=== PATIENT | male | born 1985 | race Caucasian/White ===

== ENCOUNTER 2020-04-16 14:29 | Emergency (ER) | payer BC, SELFPAY ==
--- NOTE | ~2020-04-16 | XR_ITS ---
EXAMINATION: XR hand RT min 3V INDICATION: Right hand pain, initial encounter TECHNIQUE: Three views of the right hand are obtained. COMPARISON: 04/21/2015 FINDINGS: There is an acute, traumatic, comminuted fracture at the distal aspect of the fifth metacar pal. There are 35 degrees of palmar angulation at the fracture site. The fracture does not definitely extend to the metacarpophalangeal joint. Soft tissue swelling surrounds the fracture. The remaining osseous structures are unremarkable. IMPRESSION: 1. Comminuted fracture of the distal aspect of the fifth metacarpal. Reviewed, dictated and finalized at location A.
[2020-04-16 14:37] VITALS: BP 154/88; PULSE 86; RESP 18; TEMP 36.7; O2SAT 99
--- NOTE | 2020-04-16 15:44 | WC.ED.TRAUMA ---
HPI - Trauma General Chief Complaint: Extremity Injury, Upper <DARYL Rodriguez Last Filed: 04/16/20 15:47> Stated Complaint: r hand injury <DARYL Rodriguez Last Filed: 04/16/20 15:47> Time Seen by Provider: 04/16/20 14:33 <DARYL Rodriguez Last Filed: 04/16/20 15:47> Source: patient <DARYL Rodriguez Last Filed: 04/16/20 15:47> Mode of arrival: ambulatory <DARYL Rodriguez Last Filed: 04/16/20 15:47> Limitations: no limitations <DARYL Rodriguez Last Filed: 04/16/20 15:47> History of Present Illness HPI narrative: Patient is a 35-year-old male who presents to emergency department for evaluation of right hand injury patient had the hand caught between 2 logs while working today with resultant bruising aching pain involving the ulnar aspect of the hand patient denies other injuries or complaints denies any radicular symptoms or paresthesias presents per private vehicle has not had anything for pain and has no other injuries <Roldan Rivers PA-C Last Filed: 04/16/20 15:47> Related Data Home Medications: Home Medications Medication Instructions Recorded Confirmed albuterol sulfate 90 mcg/actuation 2 puff INHALATION Q4-6H PRN gm 02/14/20 02/17/20 aerosol inhaler dexlansoprazole 60 mg 60 mg PO DAILY 02/14/20 02/17/20 capsule,biphase delayed release multivitamin 1 tablet PO DAILY 02/14/20 02/17/20 <Roldan Rivers PA-C Last Filed: 04/16/20 15:47> Allergies/Adverse Reactions: Allergies Allergy/AdvReac Type Severity Reaction Status Date / Time No Known Allergies Allergy Verified 02/15/20 14:31 <DARYL Rodriguez Last Filed: 04/16/20 15:47> Review of Systems Review of Systems: All systems reviewed & are unremarkable except as noted in HPI and below <DARYL Rodriguez Last Filed: 04/16/20 15:47> PMF Family History Family History: Family History (Updated 07/29/16 @ 23:21 by DOCTOR UNKNOWN) Father Hypertension Mother Hypertension Sibling Patient's sister is in good health Family history of alcoholism Patient's sister is , Onset Age: 21 <Roldan Rivers PA-C - Last Filed: 04/16/20 15:47> Social History Social History: Social History Smoking status: Current every day smoker Second hand tobacco smoke exposure: No Alcohol intake: never <Roldan Rivers PA-C - Last Filed: 04/16/20 15:47> Exam Narrative: Exam Narrative: GENERAL: Well-appearing, well-nourished, and in no acute distress. HEAD: Normocephalic, atraumatic. EYES: PERRLA and EOMI. ENT: Nares clear, no rhinorrhea or epistaxis. Mucous membranes moist. EXTREMITIES: Bruising swelling and tenderness over the ulnar aspect of the right hand worse over the fifth MCP joint SKIN: Warm, dry, no rash. NEURO: No focal deficits. Alert and oriented x3. Neurovascularly intact. Capillary refill less than 2 seconds PSYCH: Normal mood and affect. <Roldan Rivers PA-C - Last Filed: 04/16/20 15:47> Course Course Emergency Course: Patient in the room in no distress aware of case findings treatment plan and diagnosis agreeing to follow-up as directed with hand surgery patient aware of discussion instructions of hand surgery provided with reasons to return <Roldan Rivers PA-C - Last Filed: 04/16/20 15:47> Reevaluation(s) Reevaluation #1: Discussed case with hand surgery who will follow patient in clinic <Roldan Rivers PA-C - Last Filed: 04/16/20 15:47> Date: 04/16/20 <DARYL Rodriguez Last Filed: 04/16/20 15:47> Time: 15:46 <Roldan Rivers PA-C - Last Filed: 04/16/20 15:47> Vital Signs Vital signs: Vital Signs Temperature 98.1 F 04/16/20 14:37 Pulse Rate 86 04/16/20 14:37 Respiratory Rate 18 04/16/20 14:37 Blood Pressure 154/88 H 04/16/20 14:37 Pulse Oximetry 99
[2020-04-16 15:53] VITALS: BP 144/78; PULSE 72; RESP 18; O2SAT 100
== END 2020-04-16 15:54 | disposition home or self-care (01) ==
PROVIDERS: Emergency Provider Emergency Medicine; PCP Physician Assistant
DX: S62.336A Displaced fracture of neck of fifth metacarpal bone, right hand, initial encounter for closed fracture (principal); F17.200 Nicotine dependence, unspecified, uncomplicated; W23.0XXA Caught, crushed, jammed, or pinched between moving objects, initial encounter
CPT/HCPCS: 29125; 73130; 99284; A4565; A9270

== ENCOUNTER 2021-01-10 11:51 | Outpatient (CLI) | payer BC, SELFPAY | END 2021-01-10 11:52 | disposition home or self-care (01) | LOC: ANHCOVIDVC 11:51 | PROVIDERS: PCP Physician Assistant | DX: Z23 Encounter for immunization (principal) | CPT/HCPCS: 0001A; 91300 ==

== ENCOUNTER 2021-01-31 11:43 | Outpatient (CLI) | payer BC, SELFPAY | END 2021-01-31 11:44 | disposition home or self-care (01) | LOC: ANHCOVIDVC 11:43 | PROVIDERS: PCP Physician Assistant | DX: Z23 Encounter for immunization (principal) | CPT/HCPCS: 0002A; 91300 ==

== ENCOUNTER 2021-07-29 16:42 | Outpatient (CLI) | payer BC, SELFPAY ==
--- NOTE | ~2021-07-29 | XR_ITS ---
XR knee RT 3V DATE: 07/29/2021 17:07 INDICATION: Anterior right knee pain for 3 weeks. No acute injury. TECHNIQUE: 4 views COMPARISON: None FINDINGS: Small suprapatellar knee joint effusion is suggested. No fracture or dislocation, periosteal reaction or bone destruction, radiopaque intra-articular loose body or chondrocalcinosis is evident. Knee joint spaces appear relatively preserved. There is mild patellar enthesopathy at the quadriceps and patellar tendon insertion sites. IMPRESSION: Small suprapatellar knee joint effusion is suggested Reviewed, dictated and finalized at location B.
== END 2021-07-29 16:43 | disposition home or self-care (01) ==
LOC: ANHIMG 16:45
PROVIDERS: PCP Physician Assistant; Visit Provider Physician Assistant
DX: M25.461 Effusion, right knee (principal)
CPT/HCPCS: 73562

== ENCOUNTER 2021-12-23 09:54 | Outpatient (CLI) | payer BC, SELFPAY ==
--- NOTE | ~2021-12-23 | XR_ITS ---
. EXAMINATION: XR ankle RT min 3V, XR foot RT min 3V DATE: 12/23/2021 10:17 INDICATION: Lateral right foot and ankle pain post fall TECHNIQUE: 1. Anteroposterior, mortise, additional oblique and lateral view of the right ankle were obtained. 2. Dorsoplantar, two oblique and lateral views of the right foot were obtained. COMPARISON: None. FINDINGS: Alignment of the right foot and ankle is normal. No fracture or osteochondral lesion. Mild osteoarthr itis at the first metatarsophalangeal joint and a few tarsometatarsal and interphalangeal joints. No ankle joint effusion. Diffuse soft tissue swelling about the distal lower leg, ankle and extending ov er the dorsum of the foot. IMPRESSION: 1. No acute osseous abnormality. Reviewed, dictated and finalized at location A. GE INSPECTOR IMPRESSION: 1. No acute osseous abnormality.
== END 2021-12-23 09:55 | disposition home or self-care (01) ==
LOC: ANHIMG 09:59
PROVIDERS: PCP Physician Assistant; Visit Provider Physician Assistant
DX: M79.671 Pain in right foot (principal)
CPT/HCPCS: 73610; 73630

== ENCOUNTER 2022-04-07 08:00 | Outpatient (CLI) | payer BC, SELFPAY ==
--- NOTE | 2022-04-22 17:44 | WPDHOMESLEEP ---
Sleep Study - Home Unattended Date of Study: 04/07/22 Ordering Provider: Armaan Billy PA-C Interpreting Provider: Shannon Villalobos MD Home Sleep Study Type: Apnea Link Air Height: 1.85 m Weight: 161.025 kg Body Mass Index: 46.8 Neck Circumference (inches): 20 [place]: 5 Reason for Sleep Study Frequent snoring, waking to go to the bathroom at night Sleep History Antonino Lawson is a 37-year-old man who works for the [employer]. He has hypertension, rare gastroesophageal reflux symptoms and seasonal allergies in the fall. He does not awaken from sleep feeling short of breath. He occasionally awakens at night with heartburn, belching or coughing. He frequently snores, occasionally loudly enough that others complain about it. He does not have trouble sleeping with a cold. He does not wake up gasping for breath at night. He does not have breathing problems at night observed by others. He does not sweat excessively at night or notice his heart pounding or beating irregularly at night. He does not fall asleep during the day. He denies falling asleep involuntarily or while driving. He does not have loss of muscle tone with strong emotion. 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 He does not feel paralyzed on waking or falling asleep. He does not have vivid dreamlike scenes upon awakening or falling asleep. He does not feel afraid to go to sleep. He does not have nightmares. He does not have dream recall. He does not have racing thoughts. He denies feeling sad, depressed or anxious. He does not have muscular tension. He rarely notices parts of his body jerking as he is falling asleep. He does not kick at night. He does not have crawling or aching feelings in his legs. He does not have any kind of leg pain at night. He does not have morning jaw pain. He denies grinding his teeth during sleep. He is not bothered by pain during the day or awakened by pain during the night. He does not wake up feeling stiff in the morning. He does not wake up with sore achy muscles or pain in the neck and spine. He reports a 10 lb weight gain in the last year. Normal bedtime is between 10:00 p.m. and 11:00 p.m. falling asleep quickly waking sometimes once at night sometimes not at all to go to the bathroom. It takes him 5 minutes to return to sleep. He wakes the morning between 3:00 a.m. and 4:00 a.m.. He keeps the same schedule on the weekends. He estimates getting 5 hours of sleep at night. He denies taking naps in the afternoon or evening. He does not frequently have daytime sleepiness. He frequently snores. He feels better in the morning compared to other times of day. Habits: Tobacco 1.5 packs per day. Caffeine 7 servings a day. One alcoholic beverage per day. He does use recreational substances, does not list what type. [facility] Past Medical History Medical History Arthritis of right knee Gastroesophageal reflux disease Hypertension Family History Family History Father Hypertension Mother Hypertension Sibling Patient's sister is in good health Family history of alcoholism Patient's sister is , Onset Age: 21 Social History Social History Smoking status: Current every day smoker Second hand tobacco smoke exposure: No Alcohol intake: never Gender identity (if verbalized by the patient): Male Medications Home Medications Medication Instructions Recorded Confirmed Type multivitamin (Multiple Vitamins 1 tablet PO DAILY 02/14/20 02/19/22 History tablet) celecoxib 200 mg capsule (Celebrex) 200 mg PO DAILY #30 caps 08/07/21 02/19/22 Rx dexlansoprazole 60 mg 60 mg PO DAILY
[2022-04-22 19:40] VITALS: BMI 46.8
== END 2022-04-21 14:49 | disposition home or self-care (01) ==
LOC: ANHCSM 08:01
PROVIDERS: PCP Physician Assistant; Visit Provider Physician Assistant
DX: G47.30 Sleep apnea, unspecified (principal); G47.33 Obstructive sleep apnea (adult) (pediatric)
CPT/HCPCS: 95806

== ENCOUNTER 2022-05-08 07:42 | Outpatient (CLI) | payer BC, SELFPAY ==
--- NOTE | 2022-06-02 17:54 | WPDSLEEPSTUD ---
Sleep Study Date of Study: 05/08/22 Ordering Provider: Armaan Billy PA-C Interpreting Physician: Chayo Maddox, DO Sleep Study Type: BiPAP Titration Height: 1.85 m Weight: 156.036 kg Body Mass Index: 45.3 Neck Circumference (inches): 17.5 [place]: 7 Reason for Sleep Study The patient had a home sleep test using ApneaLink on April 07, 2022 shows extremely severe obstructive sleep apnea with an AHI of 55.3,worse in the supine position, profound hypoxemia to 65% and frequent loud snoring. Sleep History Antonino Lawson is a 37-year-old man who works for the [employer].? He has hypertension, rare gastroesophageal reflux symptoms and seasonal allergies in the fall.? He does not awaken from sleep feeling short of breath.? He occasionally awakens at night with heartburn, belching or coughing.? He frequently snores, occasionally loudly enough that others complain about it.? He does not have trouble sleeping with a cold.? He does not wake up gasping for breath at night.? He does not have breathing problems at night observed by others.? He does not sweat excessively at night or notice his heart pounding or beating irregularly at night. He does not fall asleep during the day.? He denies falling asleep involuntarily or while driving.? He does not have loss of muscle tone with strong emotion.? 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 He does not feel paralyzed on waking or falling asleep.? He does not have vivid dreamlike scenes upon awakening or falling asleep.? He does not feel afraid to go to sleep.? He does not have nightmares.? He does not have dream recall.? He does not have racing thoughts.? He denies feeling sad, depressed or anxious.? He does not have muscular tension.? He rarely notices parts of his body jerking as he is falling asleep.? He does not kick at night.? He does not have crawling or aching feelings in his legs.? He does not have any kind of leg pain at night.? He does not have morning jaw pain.? He denies grinding his teeth during sleep.? He is not bothered by pain during the day or awakened by pain during the night.? He does not wake up feeling stiff in the morning.? He does not wake up with sore achy muscles or pain in the neck and spine.? He reports a 10 lb weight gain in the last year. Normal bedtime is between 10:00 p.m. and 11:00 p.m. falling asleep quickly waking sometimes once at night sometimes not at all to go to the bathroom.? It takes him 5 minutes to return to sleep.? He wakes the morning between 3:00 a.m. and 4:00 a.m..? He keeps the same schedule on the weekends.? He estimates getting 5 hours of sleep at night.? He denies taking naps in the afternoon or evening.? He does not frequently have daytime sleepiness.? He frequently snores.? He feels better in the morning compared to other times of day. Habits:? Tobacco 1.5 packs per day.? Caffeine 7 servings a day.? One alcoholic beverage per day.? He does use recreational substances, does not list what type. [facility] Past Medical History Medical History Arthritis of right knee Gastroesophageal reflux disease Hypertension Family History Family History Father Hypertension Mother Hypertension Sibling Patient's sister is in good health Family history of alcoholism Patient's sister is , Onset Age: 21 Social History Social History Smoking status: Current every day smoker Second hand tobacco smoke exposure: No Alcohol intake: never Gender identity (if verbalized by the patient): Male Medications Home Medications Medication Instructions Recorded Confirmed Type multivitamin (Multiple Vitamins 1 tablet PO DAILY 02/14/2002/01
[2022-06-02 21:59] VITALS: BMI 45.3
== END 2022-05-09 03:44 | disposition home or self-care (01) ==
LOC: ANHCSM 07:44
PROVIDERS: PCP Physician Assistant; Visit Provider Physician Assistant
DX: G47.33 Obstructive sleep apnea (adult) (pediatric) (principal)
CPT/HCPCS: 95811

== ENCOUNTER 2023-06-24 10:13 | Outpatient (CLI) | payer OTHER, SELFPAY ==
--- NOTE | ~2023-06-24 | XR_ITS ---
EXAMINATION: XR shoulder RT min 2V INDICATION: Right shoulder pain TECHNIQUE: Four views of the right shoulder are submitted. COMPARISON: None FINDINGS: Normal alignment. No fracture. Glenohumeral and acromioclavicular joint spaces are normal. Soft tissues are unremarkable. IMPRESSION: 1. No acute osseous abnormality. Reviewed, dictated and finalized at location A.
== END 2023-06-24 10:14 | disposition home or self-care (01) ==
LOC: ANHIMG 10:15
PROVIDERS: PCP Physician Assistant; Visit Provider Physician Assistant
DX: M25.511 Pain in right shoulder (principal)
CPT/HCPCS: 73030

== ENCOUNTER 2024-10-02 17:15 | Inpatient (IN) | payer OTHER, SELFPAY ==
--- NOTE | ~2024-10-02 | CT_ITS ---
EXAMINATION: CT abdomen pelvis w con DATE: 10/02/2024 21:49 INDICATION: abdominal pain TECHNIQUE: Computed tomography (CT) of the abdomen and pelvis was performed with 100 mL Omnipaque-350 intravenous contrast. Automated exposure control and iterative reconstruction technique were employe d. The dose-length product was 1851.75 mGy-cm. COMPARISON: None. FINDINGS: Lower thorax: Unremarkable Liver: Enlarged. Diffuse fatty infiltration Biliary/Gallbladder: Cholelithiasis. No inflammatory changes. No bile duct dilation. Pancreas: Mild fatty infiltration. Spleen: Normal. Adrenals:No mass. Kidneys: No suspicious mass, obstructing stone, or hydronephrosis. GI tract: Small hiatal hernia. Masslike focal soft tissue thickening in the colon at the hepatic flex ure. No small or large bowel dilation. Normal appendix. Mesentery/Peritoneum: No ascites, mass, or free air. Retroperitoneum: No mass. Pelvis: Pelvic organs are within normal limits. Soft Tissues: Moderate uncomplicated appearing fat-containing umbilical hernia. Small uncomplicated a ppearing fat-containing left inguinal hernia. Bones: No acute osseous finding. IMPRESSION: Hepatomegaly and steatosis. Findings suspicious for a colonic mass at the hepatic flexure. Recommend referral for endoscopy. Reviewed, dictated and finalized at location K. IZATION REVIEW SPECIALIST IMPRESSION: Hepatomegaly and steatosis. Findings suspicious for a colonic mass at the hepatic flexure. Recommend referr al for endoscopy.
--- NOTE | ~2024-10-02 | CT_ITS ---
EXAMINATION: CT diagnostic chest w con DATE: 10/05/2024 09:08 INDICATION: Colon mass TECHNIQUE: Computed tomography (CT) of the chest was performed with 75 mL Omnipaque-350 intravenous c ontrast. Additional 3D reconstructions utilizing coronal maximum intensity projection (MIP) were perf ormed. Automated exposure control and iterative reconstruction technique were employed. The dose-walter th product was 937.24 mGy-cm. COMPARISON: None FINDINGS: Mild atelectasis at the posterior sulcus of the right lower lobe. No suspicious pulmonary nodules, pn eumonia, pulmonary edema or pleural effusion. Heart size is normal. No pericardial effusion. Thoracic aorta is normal in caliber with no dissection. No pathologically enlarged thoracic lymphadenopathy. Prominent diffuse hepatic steatosis. Partial rim calcification of a gallstone at the neck of the part ially visualized but normal-appearing gallbladder. Mild thoracic spondylosis. IMPRESSION: 1. Mild right basilar atelectasis. No suspicious pulmonary nodule or acute cardiopulmonary disease. 2. Diffuse hepatic steatosis. 3. Cholelithiasis. Reviewed, dictated and finalized at location A. IO POTTER IMPRESSION: 1. Mild right basilar atelectasis. No suspicious pulmonary nodule or acute card iopulmonary disease. 2. Diffuse hepatic steatosis. 3. Cholelithiasis.
[2024-10-02 19:07] VITALS: BP 131/73; PULSE 103; RESP 14; TEMP 36.3; O2SAT 100
[2024-10-02] MEDS: ONDANSETRON INJ 4 MG/2 ML VIAL IV PUSH (20:58)
[2024-10-02] MEDS: SODIUM CHLORIDE 0.9% IV 1,000 ML 999 ML IV CONT (20:58)
[2024-10-02 21:02] VITALS: BP 129/64; RESP 24; O2SAT 98
[2024-10-02 21:06] LABS: Basophils Absolute Auto 0.1 K/mm3 (0.0-0.1); Basophils Percent Auto 0.4 % (0.2-1.2); Eosinophils Percent Auto 0.2 % (0-4.4); Hematocrit 26.4 % (42.0-52.0); Hemoglobin 8.7 g/dL (14.0-18.0); Immature Granulocyte Absolute 0.14 K/mm3 (0.00-0.031); Immature Granulocyte Percent A 0.8 % (0-0.5); Lymphocytes Absolute Auto 3.51 K/mm3 (0.9-3.2); Lymphocytes Percent Auto 21.1 % (18.3-44.2); Mean Corpuscular Hemoglobin 29.9 pg (26-34); Mean Corpuscular Volume 90.7 fl (80-100); Mean Platelet Volume 11.5 fl (7.4-10.4); Neutrophils Absolute Auto 11.9 K/mm3 (1.3-6.7); Neutrophils Percent Auto 71.5 % (45.5-73.1); Platelet Count Result 262 k/mm3 (150-375); Red Blood Count 2.91 M/mm3 (4.6-6.20); White Blood Count 16.6 K/mm3 (4.5-10.0)
[2024-10-02 21:21] LABS: Alanine Aminotransferase 30 U/L (6-50); Albumin Level 3.9 g/dL (3.5-5.1); Alkaline Phosphatase 69 U/L (38-126); Anion Gap 6 mmol/L (4-12); Aspartate Amino Transferase 29 U/L (17-59); Bilirubin,Total 0.8 mg/dL (0.2-1.3); Blood Urea Nitrogen 17 mg/dL (9-20); Calcium 8.3 mg/dL (8.4-10.2); Carbon Dioxide 29 mmol/L (22-30); Chloride 94 mmol/L (98-107); Estimated CRCL calculation 124 ml/min; Estimated Glomerular Filt Rate > 60; Glucose 323 mg/dL (65-110); Lactic Acid Reflex 2.1 mmol/L (0.7-2.0); Lipase 43 U/L (23-300); Magnesium 1.5 mg/dL (1.6-2.3); Potassium 3.5 mmol/L (3.4-5.0); Sodium 129 mmol/L (137-145)
[2024-10-02 21:33] LABS: INR 1.1; Prothrombin Time 14.2 Seconds (11.1-14.7)
[2024-10-02 21:34] LABS: Partial Thromboplastin Time 24.9 Seconds (22.3-36.8)
[2024-10-02] MEDS: MAGNESIUM SULF 2 GM/WATER 50ML 2 GM/50 ML BAG IVPB (22:07)
[2024-10-02 22:13] LABS: Procalcitonin 0.6 ng/mL
[2024-10-02 22:21] VITALS: BP 138/88; PULSE 98; RESP 17; O2SAT 99
--- NOTE | 2024-10-02 22:52 | ED.GENADULT ---
HPI - General Adult General Chief complaint: GI Bleed Stated complaint: rectal bleeding Time Seen by Provider: 10/02/24 19:59 History of Present Illness HPI narrative: Patient is a 39-year-old gentleman who presents emergency department chief complaint of rectal bleeding. Patient states that he started having diarrhea and started having blood in the diarrhea the patient states his stool has changed to a maroon-colored now patient reports he has a crampy like sensation through his abdomen. The patient reports he has felt lightheaded Related Data Home Medications Medication Instructions Recorded Confirmed multivitamin (Multiple Vitamins 1 tablet PO DAILY 02/14/20 04/23/23 tablet) Allergies Allergy/AdvReac Type Severity Reaction Status Date / Time No Known Allergies Allergy Verified 04/23/23 10:36 Review of Systems Review of Systems: A 10 system review of systems was completed on the patient and is negative except for what is stated in the HPI. Nursing and ancillary documentation was reviewed. [facility] Past Medical History Medical History Arthritis of right knee Gastroesophageal reflux disease Hypertension Family History Family History Father Hypertension Mother Hypertension Sibling Patient's sister is in good health Family history of alcoholism Patient's sister is , Onset Age: 21 Social History Social History Smoking status: Former smoker Second hand tobacco smoke exposure: No Alcohol intake: never Lack of Transportation: No Lack of Food: Never True Current Housing: I Have Housing Concerned About Future Housing: No Difficulty Paying Gas/Electric Bills: No Difficulty Paying for Meds: No Currently Unemployed: No Education: Associate Degree Difficulty w/ Childcare or Family Care: No Gender identity (if verbalized by the patient): Male Exam Narrative: GENERAL: Well-appearing, well-nourished, and in no acute distress. HEAD: Normocephalic, atraumatic. EYES: PERRLA and EOMI. ENT: Nares clear, no rhinorrhea or epistaxis. Mucous membranes moist. NECK: Supple. CHEST: Clear to auscultation. No respiratory distress. HEART: Regular rate and rhythm. No murmur heard. Normal peripheral pulses. ABDOMEN: Soft, nontender, nondistended, normal active bowel sounds. : Melanotic guaiac-positive stool EXTREMITIES: Normal range of motion. No edema. SKIN: Warm, dry, no rash. NEURO: No focal deficits. Alert and oriented x3. PSYCH: Normal mood and affect. Course Vital Signs Vital signs: Vital Signs Temperature 36.3 C L 10/02/24 19:07 Pulse Rate 103 H 10/02/24 19:07 Respiratory Rate 14 10/02/24 19:07 Blood Pressure 131/73 10/02/24 19:07 Pulse Oximetry 100 10/02/24 19:07 Temperature 36.3 C L 10/02/24 19:07 Pulse Rate 98 10/02/24 22:21 Respiratory Rate 17 10/02/24 22:21 Blood Pressure 138/88 10/02/24 22:21 Pulse Oximetry 99 10/02/24 22:21 Medical Decision Making MDM Narrative Medical decision making narrative: Differential diagnosis includes intra-abdominal infection, diverticulitis, colitis, proctocolitis, intra-abdominal mass, GI bleed, Laboratory studies were obtained on the patient showed hemoglobin of 8.7 CT scan of the abdomen pelvis showed Hepatomegaly and steatosis. Findings suspicious for a colonic mass at the hepatic flexure. Recommend referral for endoscopy. The case was discussed with GI on-call who will consult on the patient tomorrow the patient started on bowel prep serial H&Hs we kept NPO Case was discussed with the hospitalist who accepted the patient Vital Signs Vital Signs: Vital Signs Temperature 36.3 C L 10/02/24 19:07 Pulse Rate 103 H 10/02/24 19:07 Respiratory Rate 14 10/02/24 19:07 Blood Pressure 131/73 10/02/24 19:07 Pulse Oximetry 100 10/02/24 19:07 Temperature 36.3 C L 10/02/24 19:07 Pulse Rate 98 10/02/24 22:21 Respiratory Rate 17 10/02/24 22:21 Blood Pressure 138/88 10/02/24 22:21 Pulse Oximetry 99 10/02/24 22:21 Lab Data 10/02/24 20:57 10/02/24 20:57 Labs: Lab Results 10/02/24 Range/Units 20:57 WBC 16.6 H (4.5-10.0) K/mm3 RBC 2.91 L (4.6-6.20) M/mm3 Hgb 8.7 L (14.0-18.0) g/dL Hct 26.4 L (42.0-52.0) % MCV 90.7 (80-100) fl MCH 29.9 (26-34) pg MCHC 33.0 (32-36) g/dl RDW 14.0 (11.5-14.5) % Plt Count 262 (150-375) k/mm3 MPV 11.5 H (7.4-10.4) fl Immature Gran % (Auto) 0.8 H (0-0.5) % Neut % (Auto) 71.5 (45.5-73.1) % Lymph % (Auto) 21.1 (18.3-44.2) % Reeves % (Auto) 6.0 (2.6-8.5) % Eos % (Auto) 0.2 (0-4.4) % Baso % (Auto) 0.4 (0.2-1.2) % Lymph # (Auto) 3.51 H (0.9-3.2) K/mm3 Reeves # (Auto) 1.0 H (0.1-0.6) K/mm3 Eos # (Auto) 0.0 (0-0.3) K/mm3 Baso # (Auto) 0.1 (0.0-0.1) K/mm3 Abs Immat Gran (auto) 0.14 H (0.00-0.031) K/mm3 Absolute Neuts (auto) 11.9 H (1.3-6.7) K/mm3 Absolute Nucleated RBC 0.000 (0.0-0.012) K/mm3 Nucleated RBC % 0.0 (0.0-0.2) % PT 14.2 (11.1-14.7) Seconds INR 1.1 APTT 24.9 (22.3-36.8) Seconds Sodium 129 L (137-145) mmol/L Potassium 3.5 (3.4-5.0) mmol/L Chloride 94 L (98-107) mmol/L Carbon Dioxide 29 (22-30) mmol/L Anion Gap 6 (4-12) mmol/L BUN 17 (9-20) mg/dL Creatinine 1.10 (0.7-1.3) mg/dL Estim Creat Clear Calc 124 ml/min Estimated GFR > 60 (59 - ) Glucose 323 H (65-110) mg/dL Lactic Acid 2.1 H (0.7-2.0) mmol/L Calcium 8.3 L (8.4-10.2) mg/dL Magnesium 1.5 L (1.6-2.3) mg/dL Total Bilirubin 0.8 (0.2-1.3) mg/dL AST 29 (17-59) U/L ALT 30 (6-50) U/L Alkaline Phosphatase 69 (38-126) U/L Total Protein 6.0 L (6.3-8.2) g/dL Albumin 3.9 (3.5-5.1) g/dL Lipase 43 (23-300) U/L Procalcitonin 0.6 ng/mL Discharge Plan Discharge Clinical Impression: GI bleed Patient Disposition: Still a Patient Condition: Stable Prescriptions: No Action multivitamin [Multiple Vitamins] Tablet 1 tablet PO DAILY celecoxib [Celebrex] 200 mg capsule 200 mg PO DAILY Qty: 30 1RF albuterol sulfate [ProAir HFA] 90 mcg/actuation HFA aerosol inhaler 2 puff INHALATION Q4-6H PRN (Reason: shortness of breath or wheezing) Qty: 8.5 3RF cyclobenzaprine 10 mg tablet 10 mg PO QHS PRN (Reason: muscle spasm) Qty: 20 0RF lisinopril-hydrochlorothiazide 20-12.5 mg tablet See Rx Instructions .ROUTE .COMPLEX Qty: 90 3RF Dose Instruction: TAKE 1 TABLET BY MOUTH EVERY DAY Rx Instructions: TAKE 1 TABLET BY MOUTH EVERY DAY Follow-up/Referrals: Isma Quintero DO [Primary Care Provider] - Time of Disposition: 22:56
[2024-10-03] VITALS (16 sets, daily range): BP systolic 130–169; BP diastolic 60–88; PULSE 90–105; RESP 16–20; TEMP 36.4–37.8; O2SAT 95–99; BMI 45.2
[2024-10-03 00:04] LABS: Reflex Lactic Acid Yes or No Add Lactic
--- NOTE | 2024-10-03 00:52 | PM.IMHP ---
H&P: HPI History of Present Illness Date/Time: 10/03/24 00:52 Chief Complaint: 1. Blood in stools 2. Dizziness 3. Fatigue Narrative: Antonino Lawson is a 39 yo M with a mhx significant for HTN, Obesity, COPD. He over the last day has been experiencing symptoms of loose frequent stools; with no known modifying factors they came to be associated with bloody bowel movements, fatigue, dizziness and malaise. He denies abdominal pains, chest pains, fevers, chills, nausea, vomiting or previous similar episodes. Though he has stopped smoking after a 20py+ history, he currently chews nicotine gum, does not drink alcohol or consume recreational/illicit drugs. His paternal grandparents suffered from Prostrate and breast cancer. Work-up findings: CTAP: Hepatomegaly and steatosis. Findings suspicious for a colonic mass at the hepatic flexure. Hb 8.7 >> 8.1 PLT 262 WBC Na 129 K 3.5 cl 94 HCO3 29 BUN 17 Cr 1.1 GFR >60 Antonino Lawson will be admitted, evaluated and managed for GIB with a colonic mass Review of Systems Constitutional: Constitutional: Denies body ache(s), Denies difficulty sleeping, Reports fatigue, Denies lethargy, Denies night sweats and Denies weakness Eyes: Eyes: Reports no additional eye complaints and Reports blurry vision ENT: Reports Normal hearing present, Reports dysphagia, Reports epistaxis and Reports nasal congestion Cardiovascular: Cardiovascular: Denies pedal edema, Denies leg edema, Denies lightheadedness and Denies palpitations Respiratory: Respiratory: Denies hemoptysis, Denies dyspnea and Denies dyspnea on exertion Gastrointestinal: Gastrointestinal: Reports hematochezia, Denies constipation, Denies heartburn, Denies diarrhea and Denies nausea Genitourinary: Genitourinary: Denies flank pain, Denies urinary frequency, Denies urinary hesitancy, Denies urinary incontinence and Denies urinary urgency Musculoskeletal: Musculoskeletal: Denies back pain, Denies myalgias, Denies arthralgias, Denies joint swelling and Denies neck pain Integumentary/Breasts: Skin/Breast: Reports dry skin Neurologic: Denies system reviewed and no additional complaints, except as documented, Denies Abnormal speech present, Denies abnormal gait, Denies confusion, Denies vertigo and Denies headache(s) Psychiatric: Psychiatric: Reports anxiety, Denies behavioral changes and Denies confusion PMFSH Past Medical History Medical History Arthritis of right knee Gastroesophageal reflux disease Hypertension Family History Family History Father Hypertension Mother Hypertension Sibling Patient's sister is in good health Family history of alcoholism Patient's sister is , Onset Age: 21 Social History Social History Smoking status: Former smoker Second hand tobacco smoke exposure: No Alcohol intake: never Substance use type: does not use Do You Feel Safe in your Home?: Yes Lack of Transportation: No Lack of Food: Never True Current Housing: I Have Housing Concerned About Future Housing: No Difficulty Paying Gas/Electric Bills: No Difficulty Paying for Meds: No Currently Unemployed: No Education: Associate Degree Difficulty w/ Childcare or Family Care: No Gender identity (if verbalized by the patient): Male Spiritual care concerns: No Meds Home Medications and Allergies Home Medications Medication Instructions Recorded Confirmed Type multivitamin (Multiple Vitamins 1 tablet PO DAILY 02/14/20 10/03/24 History tablet) albuterol sulfate 90 mcg/actuation 2 puff inhalation Q4-6H PRN 10/18/21 10/03/24 Rx aerosol inhaler (ProAir HFA) shortness of breath or wheezing #8.5 grams lisinopril 20 1 tablet PO DAILY 10/03/24 10/03/24 History mg-hydrochlorothiazide 12.5 mg tablet Allergies Allergy/AdvReac Type Severity Reaction Status Date / Time No Known Allergies Allergy Verified 04/23/23 10:36 Vital Signs Vital Signs - 24 hr 10/02/24 19:07 10/02/24 21:02 10/02/24 22:21 Temperature 97.4 F L Pulse Rate 103 H 98 Respiratory Rate 14 24 H 17 Blood Pressure 131/73 129/64 138/88 Pulse Oximetry 100 98 99 Exam Const: General: no acute distress; No in distress or uncomfortable HENMT: Ears: TM's abnormal bilaterally Mouth: No moist mucous membranes, No dry mucous membranes and No Abnormal oral and palatal mucosa present Eyes: General: appearance abnormal, both eyes Sclera: sclerae normal Pupils: Equal, round and reactive pupils present EOM: EOM not intact bilaterally Neck: Neck: supple Thyroid: thyroid normal Lymphatic: lymphadenopathy Resp: Auscultation: not clear to auscultation bilaterally, no crackles, no rales, no rhonchi and no wheezes Cardio: Rate: regular rate and not bradycardic Rhythm: regular rhythm GI: Auscultation: normal bowel sounds Skin: General skin exam: normal color Neuro: Motor exam (neuro): 5/5 motor strength present throughout, Normal motor muscle tone present throughout, strength normal and abnormal movements noted Sensory Exam: normal sensation Extrem: General: normal to inspection, no edema and no pedal edema Psych: Mental Status: mental status grossly normal H&P: Results Labs Labs: Short CBC 10/02/24 Range/Units 20:57 WBC 16.6 H (4.5-10.0) K/mm3 Hgb 8.7 L (14.0-18.0) g/dL Hct 26.4 L (42.0-52.0) % Plt Count 262 (150-375) k/mm3 BMP 10/02/24 20:57 Sodium 129 L Potassium 3.5 Chloride 94 L Carbon Dioxide 29 BUN 17 Creatinine 1.10 Glucose 323 H Calcium 8.3 L Liver Function 10/02/24 Range/Units 20:57 Total Bilirubin 0.8 (0.2-1.3) mg/dL AST 29 (17-59) U/L ALT 30 (6-50) U/L Alkaline Phosphatase 69 (38-126) U/L Albumin 3.9 (3.5-5.1) g/dL Assessment and Plan Assessment and plan (1) GI bleed: Code(s): K92.2 - Gastrointestinal hemorrhage, unspecified Status: Acute (2) Morbid obesity with BMI of 45.0-49.9, adult: Code(s): E66.01 - Morbid (severe) obesity due to excess calories; Z68.42 - Body mass index [BMI] 45.0-49.9, adult Status: Acute Plan Acute and principal conditions 1. LGIB. 2. Colonic mass, hepatic flexure 3. Acute blood loss anemia a. NPO; H+H monitoring b. GI consulted c. type and screen; Goal Hb >7 Chronic and stable conditions. 1. Nicotine dependence. Cessation counseling, 3 minutes 2. Obesity. BMI 45. Miscellaneous care. 1. VTE prophylaxis. SCDs; holding pharmacologic VTE 2. Code status. full 3. Nutrition. NPO Quality VTE Prophylaxis VTE prophylaxis: mechanical ordered If No VTE Prophylaxis Answer both mechanical and pharmacologic: Reason no mechanical VTE proph: medical contraindication (GIB) Hospitalist MIPS Advance Care Plan I have confirmed that the patient's Advanced Care Plan is present, code status is documented, or surrogate decision maker is listed in patient medical record.: Yes Medication Reconciliation I have utilized all available resources to obtain, update and review the patients current medications (includes all prescriptions, OTC, herbals, cannabis, and nutritional supplements).: Yes The patient is not eligible for med reconciliation; the patient is in a emergent medical situation where delaying treatment would jeopardize the patients health.: Yes
[2024-10-03 01:57] LABS: Hematocrit 24.5 % (42.0-52.0); Hemoglobin 8.1 g/dL (14.0-18.0)
[2024-10-03] MEDS: PEG (High)/E-LYTE SOLN 4,000 ML BTL 3000 ML PO (02:02)
[2024-10-03] MEDS: SODIUM CHLORIDE 0.9% IV 1,000 ML 100 ML IV CONT ×2 (02:02→13:25)
[2024-10-03 02:12] LABS: Lactic Acid 1.6 mmol/L (0.7-2.0)
--- NOTE | 2024-10-03 03:09 | PC.NURSE ---
Patient arrived to unit, vital signs stable. Informed how to use call light. How to ask for help. Denies pain at this time. Resting comfortably in bed. All questions answered with continue to monitor.
--- NOTE | 2024-10-03 03:11 | ADMGEN ---
This patient, Antonino Lawson, was admitted to [facility] Surg Room 322-02. Patient/family oriented to hospital policies and general routines including ID bracelet, bed and alarms, visiting hours, pain management, procedures, bathroom and other care routines, personal items, smoking policy, room service/diet, and visiting hours. Information on how to activate the Rapid Response Team has been discussed. Patient/Family are encouraged to report perceived risks to care and to ask questions if they do not understand what they are told or what they should do.
[2024-10-03] MEDS: PIPERACILLN/TAZ 3.375GM/NS50ML 3.375 GM/50 ML BAG IVPB ×5 (03:26→23:52)
[2024-10-03 06:46] LABS: Basophils Percent Auto 0.5 % (0.2-1.2); Eosinophils Absolute Auto 0.1 K/mm3 (0-0.3); Eosinophils Percent Auto 0.9 % (0-4.4); Hematocrit 21.6 % (42.0-52.0); Hemoglobin 7.2 g/dL (14.0-18.0); Immature Granulocyte Absolute 0.07 K/mm3 (0.00-0.031); Immature Granulocyte Percent A 0.9 % (0-0.5); Lymphocytes Absolute Auto 2.28 K/mm3 (0.9-3.2); Lymphocytes Percent Auto 28.8 % (18.3-44.2); Mean Corpuscular HGB Conc 33.3 g/dl (32-36); Mean Corpuscular Hemoglobin 30.5 pg (26-34); Mean Corpuscular Volume 91.5 fl (80-100); Mean Platelet Volume 10.5 fl (7.4-10.4); Monocytes Absolute Auto 0.5 K/mm3 (0.1-0.6); Monocytes Percent Auto 6.4 % (2.6-8.5); Neutrophils Percent Auto 62.5 % (45.5-73.1); Platelet Count Result 167 k/mm3 (150-375); Red Blood Count 2.36 M/mm3 (4.6-6.20); Red Cell Distribution Width 14.2 % (11.5-14.5); White Blood Count 7.9 K/mm3 (4.5-10.0)
[2024-10-03 06:58] LABS: Alanine Aminotransferase 25 U/L (6-50); Albumin Level 3.2 g/dL (3.5-5.1); Alkaline Phosphatase 65 U/L (38-126); Anion Gap 2 mmol/L (4-12); Aspartate Amino Transferase 26 U/L (17-59); Bilirubin,Total 0.6 mg/dL (0.2-1.3); Blood Urea Nitrogen 12 mg/dL (9-20); Calcium 7.5 mg/dL (8.4-10.2); Carbon Dioxide 32 mmol/L (22-30); Chloride 99 mmol/L (98-107); Estimated CRCL calculation 134 ml/min; Estimated Glomerular Filt Rate > 60; Glucose 282 mg/dL (65-110); Potassium 3.4 mmol/L (3.4-5.0); Sodium 133 mmol/L (137-145)
[2024-10-03] MEDS: PANTOPRAZOLE SODIUM IV 40 MG VIAL IV PUSH (08:14)
--- NOTE | 2024-10-03 09:49 | P.CONGI_ITS ---
Assessment and Plan Assessment and plan (1) Acute blood loss anemia: Code(s): D62 - Acute posthemorrhagic anemia <Malissa Miller APRN - Last Filed: 10/03/24 11:16> Status: Acute <Malissa Miller CLIENT REPORTING ASSOCIATE - Last Filed: 10/03/24 11:16> (2) GI bleed: Qualifiers: GI bleed type/associated pathology: unspecified gastrointestinal hemorrhage type Qualified Code(s): K92.2 - Gastrointestinal hemorrhage, unspecified <Malissa Miller, CLIENT REPORTING ASSOCIATE - Last Filed: 10/03/24 11:16> Code(s): K92.2 - Gastrointestinal hemorrhage, unspecified <Malissa carrasco, CLIENT REPORTING ASSOCIATE - Last Filed: 10/03/24 11:16> Status: Acute <Malissa Miller CLIENT REPORTING ASSOCIATE - Last Filed: 10/03/24 11:16> (3) Mass of hepatic flexure of colon: Code(s): K63.89 - Other specified diseases of intestine <Malissa Miller, CLIENT REPORTING ASSOCIATE - Last Filed: 10/03/24 11:16> Status: Acute <Malissa Miller CLIENT REPORTING ASSOCIATE - Last Filed: 10/03/24 11:16> (4) Abnormal digestive system diagnostic imaging: Code(s): R93.3 - Abnormal findings on diagnostic imaging of other parts of digestive tract <Malissa Miller, CLIENT REPORTING ASSOCIATE - Last Filed: 10/03/24 11:16> Status: Acute <Malissa Miller APRN - Last Filed: 10/03/24 11:16> Assessment and Plan: 1. Hematochezia/diarrhea/abnormal imaging digestive-colon mass/ABLA: Patient has never had a colonoscopy. Family history negative for CRC or IBD in a first- degree relative. CT on admission showed findings suspicious for colonic mass at the hepatic flexure and a small hiatal hernia.H&H trending down since admission showing HGB 9-->7.2 and Hct 26-->22, MCV 92, platelets 167, INR 1.1. Patient denies any NSAID, aspirin, or anticoag use. acute onset of painless bright red rectal bleeding and diarrhea since Thursday. Prior to Thursday the patient was having regular BMs that were formed to loose. Denies any prior episodes of rectal bleeding. Prior to admission the patient was having some fatigue and dizziness but states that this has improved since admission. Patient started bowel prep 2:00 a.m. this morning. Per patient he is having liquid bowel movements today that are mostly blood. Temperature today at 100.0. On admission WBC's at 17 and today 8 * Will check stool studies to rule out infectious etiology * Primary care team to monitor H&H closely and transfuse as needed to keep HGB > 7 * Continue bowel prep * clear liquid diet today and NPO after midnight * Plan for colonoscopy tomorrow 2. Hepatomegaly/hepatic steatosis: CT showed hepatomegaly and hepatic steatosis. LFTs normal. Patient with BMI > 45. * Patient can follow up as outpatient for management Thank you very much for allowing me share in the care this very nice patient This report may have been done utilizing a voice recognition system. Attempts have been made to correct errors. However, there may be uncorrected grammatical, spelling, and recognition errors present. <Malissa Miller APRN - Last Filed: 10/03/24 11:16> GI Consult Note Consult date/time: 10/03/24 09:49 <Malissa Miller APRN - Last Filed: 10/03/24 11:16> Reason for consult: GI bleed <Malissa Miller APRN - Last Filed: 10/03/24 11:16> I have reviewed our nurse practitioner's note, examined the patient and pertinent laboratory data. We have discussed the plan extensively and agreed with was stated in the note. The patient presents with severe anemia and the passage of rectal bleeding. There is a suspicion of a colonic mass, however other differential diagnosis include ischemic colitis, diverticular bleed or new onset inflammatory bowel disease. Will perform colonoscopy tomorrow. <Darío Dean MD - Last Filed: 10/03/24 18:52> HPI: This is a 39-year-old male with history of GERD, HTN, and severe YANETH. He presented to the emergency room yesterday with complaints of rectal bleeding. GI has been consulted for GI bleed. Patient states that on Thursday he started having diarrhea and painless bright red blood per rectum. Prior to Thursday the patient was having regular loose to formed bowel movements daily.Patient started his bowel prep around 2:00 a.m. this morning a. Per patient he is having liquid bowel movements today that are mostly blood . He denies any abdominal pain, nausea, vomiting, bloating, odynophagia, dysphagia, reflux, regurgitation, early satiety, unexplained weight loss, appetite loss, constipation, or melena. He denies any NSAID, aspirin, or anticoagulation use. He uses chewing tobacco but denies any alcohol or marijuana use. Paternal grandfather had pancreatic cancer. ENDOSCOPY HISTORY: EGD: Patient has never had an EGD COLONOSCOPY: Patient has never had a colonoscopy Bx results: LABS AND STOOL STUDIES: Labs 10/03/2024 showed sodium 133, potassium 3.4, BUN 12, creatinine 1.00, GFR > 60. WBC is 8, HGB 7.2, HCT 22, MCV 92, platelets 197, INR 1.1. Total bilirubin 0.6, AST 26, ALT 25, alkaline phosphatase 65, lipase 43, calcium 7.5, albumin 3.2. IMAGING: CT abd/pelvis w/contrast 10/02/2024 FINDINGS: Lower thorax: Unremarkable Liver: Enlarged. Diffuse fatty infiltration Biliary/Gallbladder: Cholelithiasis. No inflammatory changes. No bile duct dilation. Pancreas: Mild fatty infiltration. Spleen: Normal. Adrenals:No mass. Kidneys: No suspicious mass, obstructing stone, or hydronephrosis. GI tract: Small hiatal hernia. Masslike focal soft tissue thickening in the colon at the hepatic flexure. No small or large bowel dilation. Normal appendix. Mesentery/Peritoneum: No ascites, mass, or free air. Retroperitoneum: No mass. Pelvis: Pelvic organs are within normal limits. Soft Tissues: Moderate uncomplicated appearing fat-containing umbilical hernia. Small uncomplicated appearing fat-containing left inguinal hernia. Bones: No acute osseous finding. IMPRESSION: Hepatomegaly and steatosis. Findings suspicious for a colonic mass at the hepatic flexure. Recommend referral for endoscopy. <Malissa Miller APRN - Last Filed: 10/03/24 11:16> Review of Systems Constitutional: Constitutional: Reports as per HPI and Reports fatigue (prior to admission but this has improved since admission) <Malissa Miller APRN - Last Filed: 10/03/24 11:16> ENT: Reports as per HPI <Malissa Miller APRN - Last Filed: 10/03/24 11:16> Cardiovascular: Cardiovascular: Reports as per HPI, Denies chest pain, Reports lightheadedness and Denies dyspnea <Malissa Miller APRN - Last Filed: 10/03/24 11:16> Comments: prior to admission but this has improved since admission <Malissa Miller APRN - Last Filed: 10/03/24 11:16> Respiratory: Respiratory: Denies cough and Denies dyspnea <Malissa Miller APRN - Last Filed: 10/03/24 11:16> Gastrointestinal: Gastrointestinal: Reports as per HPI <Malissa Miller APRN - Last Filed: 10/03/24 11:16> Musculoskeletal: Musculoskeletal: Reports as per HPI <Malissa Miller APRN - Last Filed: 10/03/24 11:16> Integumentary/Breasts: Skin/Breast: Reports as per HPI <Malissa Miller APRN - Last Filed: 10/03/24 11:16> Psychiatric: Psychiatric: Reports as per HPI <Malissa Miller APRN - Last Filed: 10/03/24 11:16> Endocrine: Endocrine: Reports no additional endocrine complaints <Malissa Miller APRN - Last Filed: 10/03/24 11:16> Hematologic/Lymphatic: Hematologic/Lymphatic: Reports no additional hematologic/lymphatic complaints <Malissa Miller APRN - Last Filed: 10/03/24 11:16> [facility] Past Medical History Medical History: Medical History (Updated 10/03/24 @ 15:14 by Susy Holman APRN) Arthritis of right knee Gastroesophageal reflux disease Hypertension <Malissa Miller APRN - Last Filed: 10/03/24 11:16> Family History Family History: Family History Father Hypertension Mother Hypertension Sibling Patient's sister is in good health Family history of alcoholism Patient's sister is , Onset Age: 21 <Malissa Miller APRN - Last Filed: 10/03/24 11:16> Social History Social History: Social History Smoking status: Former smoker Second hand tobacco smoke exposure: No Alcohol intake: never Substance use type: does not use Do You Feel Safe in your Home?: Yes Lack of Transportation: No Lack of Food: Never True Current Housing: I Have Housing Concerned About Future Housing: No Difficulty Paying Gas/Electric Bills: No Difficulty Paying for Meds: No Currently Unemployed: No Education: Associate Degree Difficulty w/ Childcare or Family Care: No Gender identity (if verbalized by the patient): Male Spiritual care concerns: No <Malissa Miller APRN - Last Filed: 10/03/24 11:16> Meds Home Medications and Allergies Home medications: Home Medications Medication Instructions Recorded Confirmed Type multivitamin (Multiple Vitamins 1 tablet PO DAILY 02/14/20 10/03/24 History tablet) albuterol sulfate 90 mcg/actuation 2 puff inhalation Q4-6H PRN 10/18/21 10/03/24 Rx aerosol inhaler (ProAir HFA) shortness of breath or wheezing #8.5 grams lisinopril 20 1 tablet PO DAILY 10/03/24 10/03/24 History mg-hydrochlorothiazide 12.5 mg tablet <Malissa Miller APRN - Last Filed: 10/03/24 11:16> Allergies/Adverse reactions: Allergies Allergy/AdvReac Type Severity Reaction Status Date / Time No Known Allergies Allergy Verified 04/23/23 10:36 <Malissa Miller APRN - Last Filed: 10/03/24 11:16> Vital Signs Vital Signs - 24 hr 10/02/24 19:07 10/02/24 21:02 10/02/24 22:21 Temperature 97.4 F L Pulse Rate 103 H 98 Respiratory Rate 14 24 H 17 Blood Pressure 131/73 129/64 138/88 Pulse Oximetry 100 98 99 Oxygen Delivery 10/03/24 01:36 10/03/24 02:15 10/03/24 04:00 Temperature 97.9 F Pulse Rate 99 90 Respiratory Rate 20 Blood Pressure 147/79 H Pulse Oximetry 98 98 Oxygen Delivery Room Air 10/03/24 06:00 10/03/24 07:01 10/03/24 08:00 Temperature 97.6 F 100.0 F H Pulse Rate 95 Respiratory Rate 16 Blood Pressure 130/61 Pulse Oximetry 95 95 Oxygen Delivery Room Air 10/03/24 08:00 Temperature Pulse Rate 95 Respiratory Rate Blood Pressure Pulse Oximetry Oxygen Delivery <Malissa Miller APRN - Last Filed: 10/03/24 11:16> Exam Const: General: cooperative, healthy appearing, comfortable, no acute distress, well developed and obese <Malissa Miller APRN - Last Filed: 10/03/24 11:16> Orientation/consciousness: oriented to person, oriented to place, oriented to time and patient oriented x3 <Malissa Miller APRN - Last Filed: 10/03/24 11:16> HENMT: Head: normal to inspection, normocephalic and atraumatic <Malissa Miller APRN - Last Filed: 10/03/24 11:16> Mouth: Yes Normal oral and palatal mucosa present and Yes moist mucous membranes <Malissa Miller APRN - Last Filed: 10/03/24 11:16> Eyes: General: appearance normal, both eyes and all related structures <Malissa Miller APRN - Last Filed: 10/03/24 11:16> Conjunctivae: conjunctivae normal <Malissa Miller APRN - Last Filed: 10/03/24 11:16> Sclera: sclerae normal <Malissa Miller APRN - Last Filed: 10/03/24 11:16> Pupils: Equal, round and reactive pupils present <Malissa Miller APRN - Last Filed: 10/03/24 11:16> Neck: Neck: normal visual inspection <Malissa Miller APRN - Last Filed: 10/03/24 11:16> Chest: Chest palpation & inspection: normal inspection of the chest <Malissa Miller APRN - Last Filed: 10/03/24 11:16> Resp: Effort & Inspection: normal respiratory effort and able to speak in complete sentences <Malissa [place] CLIENT REPORTING ASSOCIATE - Last Filed: 10/03/24 11:16> Auscultation: clear to auscultation bilaterally <Malissa [place] CLIENT REPORTING ASSOCIATE - Last Filed: 10/03/24 11:16> Cardio: Jugular venous distension: no JVD <Malissa SultanaAURORA morinN - Last Filed: 10/03/24 11:16> Rate: regular rate <Malissa [place] [facility] Last Filed: 10/03/24 11:16> Rhythm: regular rhythm <Malissa [place] CLIENT REPORTING ASSOCIATE - Last Filed: 10/03/24 11:16> Heart sounds: S1 normal heart sound present and S2 normal heart sound present <Malissa [place] [facility] Last Filed: 10/03/24 11:16> GI: Inspection: normal to inspection <Malissa [place] [facility] Last Filed: 10/03/24 11:16> GI Palp: Yes Soft to palpation and Yes No hepatosplenomegaly present <Malissa [place] [facility] Last Filed: 10/03/24 11:16> Auscultation: normal bowel sounds <Malissa [place]utanaAURORA [facility] Last Filed: 10/03/24 11:16> Rectal Exam: deferred <Malissa Rice ANURAG Miller - Last Filed: 10/03/24 11:16> Other: large abdomen <Malissa [place] [facility] Last Filed: 10/03/24 11:16> Skin: General skin exam: normal color and no rashes or lesions noted <Malissa Rice AURORA MillerN - Last Filed: 10/03/24 11:16> Neuro: General: oriented to person, oriented to place, oriented to time and patient oriented x3 <Malissa Rice ANURAG Miller Last Filed: 10/03/24 11:16> Cranial nerves: Yes Equal, round and reactive pupils present <Malissa Rice AUR[place]A MillerN - Last Filed: 10/03/24 11:16> Speech: normal speech <Malissa WoodsAbrahan Miller APRN - Last Filed: 10/03/24 11:16> Extrem: General: normal to inspection and no clubbing, cyanosis or edema <Malissa ChuckAbrahan Miller APRN - Last Filed: 10/03/24 11:16> Psych: Appearance: grossly normal and well kempt <Malissaviktoriya Miller APRN - Last Filed: 10/03/24 11:16> Affect: normal affect <Malissaviktoriya Miller APRN - Last Filed: 10/03/24 11:1 6> Results Labs CBC & Chem 7: 10/03/24 16:34 10/03/24 06:39 <Malissa Miller APRN - Last Filed: 10/03/24 11:16> Labs: Short CBC 10/02/24 10/03/24 10/03/24 Range/Units 20:57 01:44 06:39 WBC 16.6 H 7.9 (4.5-10.0) K/mm3 Hgb 8.7 L 8.1 L 7.2 L (14.0-18.0) g/dL Hct 26.4 L 24.5 L 21.6 L (42.0-52.0) % Plt Count 262 167 (150-375) k/mm3 BMP 10/02/24 10/03/24 20:57 06:39 Sodium 129 L 133 L Potassium 3.5 3.4 Chloride 94 L 99 Carbon Dioxide 29 32 H BUN 17 12 D Creatinine 1.10 1.00 Glucose 323 H 282 H Calcium 8.3 L 7.5 L Liver Function 10/02/24 10/03/24 Range/Units 20:57 06:39 Total Bilirubin 0.8 0.6 (0.2-1.3) mg/dL AST 29 26 (17-59) U/L ALT 30 25 (6-50) U/L Alkaline Phosphatase 69 65 (38-126) U/L Albumin 3.9 3.2 L (3.5-5.1) g/dL <Malissaviktoriya Miller APRN - Last Filed: 10/03/24 11:16>
--- NOTE | 2024-10-03 09:57 | PM.IMPN ---
Progress Note: A&P Assessment and Plan (1) GI bleed: Code(s): K92.2 - Gastrointestinal hemorrhage, unspecified Status: Acute Assessment and Plan: GI consulted Regulo bowel prep colonoscopy today (2) Mass of hepatic flexure of colon: Code(s): K63.89 - Other specified diseases of intestine Status: Acute Assessment and Plan: plan for colonoscopy today (3) Acute blood loss anemia: Code(s): D62 - Acute posthemorrhagic anemia Status: Acute Assessment and Plan: secondary to GI bleed hemoglobin q.6 transfuse for hemoglobin less than 7 or patient is symptomatic currently no need for blood transfusion at this time afternoon hemoglobin is 7.6, vital signs are stable (4) Hyponatremia: Code(s): E87.1 - Hypo-osmolality and hyponatremia Status: Acute Assessment and Plan: Na 133 on admission IVF for hydration (5) Hyperglycemia: Code(s): R73.9 - Hyperglycemia, unspecified Status: Acute Assessment and Plan: hemoglobin A1c 12 telehealth nurse educator nutrition consultation sliding scale insulin while in hospital (6) Hypertension: Code(s): I10 - Essential (primary) hypertension Status: Acute Assessment and Plan: holding home antihypertensives due to acute blood loss anemia Time Spent With Patient Time with patient: Greater than 35 minutes Subjective Date/time seen: 10/03/24 09:57 Interval history: 39-year-old male with history of GERD, HTN, and severe YANETH. He presented to the emergency room yesterday with complaints of painless bright red blood per rectum. CT showing Hepatomegaly and steatosis. Findings suspicious for a colonic mass at the hepatic flexure. Recommend referral for endoscopy. GI consulted and planning for colonoscopy today. During rounds patient tolerating bowel prep. Review of Systems Constitutional: Constitutional: Denies body ache(s), Denies difficulty sleeping, Reports fatigue, Denies headache(s), Denies lethargy, Denies night sweats and Denies weakness Eyes: Eyes: Reports no additional eye complaints and Reports blurry vision ENT: Reports Normal hearing present, Reports dysphagia, Denies vertigo, Denies headache(s), Reports epistaxis, Reports nasal congestion and Denies neck pain Cardiovascular: Cardiovascular: Denies pedal edema, Denies leg edema, Denies lightheadedness, Denies palpitations, Denies dyspnea and Denies dyspnea on exertion Respiratory: Respiratory: Denies hemoptysis, Denies dyspnea and Denies dyspnea on exertion Gastrointestinal: Gastrointestinal: Reports hematochezia, Denies constipation, Reports dysphagia, Denies heartburn, Denies diarrhea and Denies nausea Genitourinary: Genitourinary: Denies flank pain, Denies urinary frequency, Denies urinary hesitancy, Denies urinary incontinence and Denies urinary urgency Musculoskeletal: Musculoskeletal: Denies abnormal gait, Denies back pain, Denies myalgias, Denies arthralgias, Denies joint swelling and Denies neck pain Integumentary/Breasts: Skin/Breast: Reports dry skin Neurologic: Denies system reviewed and no additional complaints, except as documented, Reports Normal hearing present, Denies Abnormal speech present, Denies abnormal gait, Denies behavioral changes, Denies confusion, Denies vertigo, Denies headache(s) and Denies weakness Psychiatric: Psychiatric: Reports anxiety, Denies behavioral changes and Denies confusion Endocrine: Endocrine: Reports fatigue and Denies palpitations Exam Const: General: no acute distress; No in distress, confusion or uncomfortable Orientation/consciousness: No confusion HENMT: Ears: TM's abnormal bilaterally Mouth: No moist mucous membranes, No dry mucous membranes and No Abnormal oral and palatal mucosa present Eyes: General: appearance abnormal, both eyes Sclera: sclerae normal Pupils: Equal, round and reactive pupils present EOM: EOM not intact bilaterally Neck: Neck: supple Thyroid: thyroid normal Lymphatic: lymphadenopathy Resp: Auscultation: not clear to auscultation bilaterally, no crackles, no rales, no rhonchi and no wheezes Cardio: Rate: regular rate and not bradycardic Rhythm: regular rhythm GI: Auscultation: normal bowel sounds Skin: General skin exam: normal color Neuro: General: No confusion Cranial nerves: Yes Equal, round and reactive pupils present and Yes Normal hearing present Speech: No Abnormal speech present Motor exam (neuro): 5/5 motor strength present throughout, Normal motor muscle tone present throughout, strength normal and abnormal movements noted Sensory Exam: normal sensation Extrem: General: normal to inspection, no edema and no pedal edema Psych: Mental Status: mental status grossly normal Objective Data Vital Signs Vital Signs: Vital Signs - 24 hr 10/02/24 19:07 10/02/24 21:02 10/02/24 22:21 Temperature 97.4 F L Pulse Rate 103 H 98 Respiratory Rate 14 24 H 17 Blood Pressure 131/73 129/64 138/88 Pulse Oximetry 100 98 99 Oxygen Delivery 10/03/24 01:36 10/03/24 02:15 10/03/24 04:00 Temperature 97.9 F Pulse Rate 99 90 Respiratory Rate 20 Blood Pressure 147/79 H Pulse Oximetry 98 98 Oxygen Delivery Room Air 10/03/24 06:00 10/03/24 07:01 10/03/24 08:00 Temperature 97.6 F 100.0 F H Pulse Rate 95 Respiratory Rate 16 Blood Pressure 130/61 Pulse Oximetry 95 95 Oxygen Delivery Room Air 10/03/24 08:00 Temperature Pulse Rate 95 Respiratory Rate Blood Pressure Pulse Oximetry Oxygen Delivery Intake/Output Intake/Output: Intake & Output 09/30/24 10/01/24 10/02/24 10/03/24 23:59 23:59 23:59 23:59 Intake Total 1000 100 Balance 1000 100 Meds/Results Medications: Active Medications Generic Name Dose Route Start Last Admin Trade Name Freq PRN Reason Stop Dose Admin Acetaminophen 650 mg 10/03/24 00:47 Acetaminophen 325 Mg Tablet PO Q4H PRN Mild Pain (1-3) or Fever Sodium Chloride 1,000 mls @ 100 mls/hr 10/03/24 00:50 10/03/24 02:02 Normal Saline Iv IV CONT 100 mls/hr .Q10H DAVIN Administration Piperacillin/Tazobactam/Dextrose 3.375 gm in 50 mls @ 100 mls/hr 10/03/24 03:10 10/03/24 08:14 Zosyn 3.375 Gm/Ns 50 Ml IVPB 100 mls/hr Q6HR DAVIN Administration Ondansetron HCl 4 mg 10/02/24 22:48 Ondansetron Inj 4 Mg/2 Ml Vial IV PUSH Q4H PRN Nausea Pantoprazole Sodium 40 mg 10/03/24 09:00 10/03/24 08:14 Pantoprazole Sodium Iv 40 Mg Vial IV PUSH 40 mg QAM DAVIN Administration Radiology Results: ITS Impressions Abdomen/Pelvis CT 10/02/24 21:51 IMPRESSION: Hepatomegaly and steatosis. Findings suspicious for a colonic mass at the hepatic flexure. Recommend referral for endoscopy. Labs Labs: Laboratory Results - last 24 hr 10/02/24 10/02/2424 20:57 22:19 01:44 WBC 16.6 H RBC 2.91 L Hgb 8.7 L 8.1 L Hct 26.4 L 24.5 L MCV 90.7 MCH 29.9 MCHC 33.0 RDW 14.0 Plt Count 262 MPV 11.5 H Immature Gran % (Auto) 0.8 H Neut % (Auto) 71.5 Lymph % (Auto) 21.1 [place] % (Auto) 6.0 Eos % (Auto) 0.2 Baso % (Auto) 0.4 Lymph # (Auto) 3.51 H [place] # (Auto) 1.0 H Eos # (Auto) 0.0 Baso # (Auto) 0.1 Abs Immat Gran (auto) 0.14 H Absolute Neuts (auto) 11.9 H Absolute Nucleated RBC 0.000 Nucleated RBC % 0.0 PT 14.2 INR 1.1 APTT 24.9 Sodium 129 L Potassium 3.5 Chloride 94 L Carbon Dioxide 29 Anion Gap 6 BUN 17 Creatinine 1.10 Estim Creat Clear Calc 124 Estimated GFR > 60 Glucose 323 H Lactic Acid 2.1 H 1.6 Calcium 8.3 L Magnesium 1.5 L Total Bilirubin 0.8 AST 29 ALT 30 Alkaline Phosphatase 69 Total Protein 6.0 L Albumin 3.9 Lipase 43 Procalcitonin 0.6 Blood Type O Negative Antibody Screen Negative 10/03/24 06:39 WBC 7.9 RBC 2.36 L Hgb 7.2 L Hct 21.6 L MCV 91.5 MCH 30.5 MCHC 33.3 RDW 14.2 Plt Count 167 MPV 10.5 H Immature Gran % (Auto) 0.9 H Neut % (Auto) 62.5 Lymph % (Auto) 28.8 [place] % (Auto) 6.4 Eos % (Auto) 0.9 Baso % (Auto) 0.5 Lymph # (Auto) 2.28 [place] # (Auto) 0.5 Eos # (Auto) 0.1 Baso # (Auto) 0.0 Abs Immat Gran (auto) 0.07 H Absolute Neuts (auto) 5.0 Absolute Nucleated RBC 0.000 Nucleated RBC % 0.0 PT INR APTT Sodium 133 L Potassium 3.4 Chloride 99 Carbon Dioxide 32 H Anion Gap 2 L BUN 12 D Creatinine 1.00 Estim Creat Clear Calc 134 Estimated GFR > 60 Glucose 282 H Lactic Acid Calcium 7.5 L Magnesium Total Bilirubin 0.6 AST 26 ALT 25 Alkaline Phosphatase 65 Total Protein 5.0 L Albumin 3.2 L Lipase Procalcitonin Blood Type Antibody Screen Quality VTE Prophylaxis VTE prophylaxis: mechanical ordered
[2024-10-03 11:03] LABS: Hematocrit 23.5 % (42.0-52.0); Hemoglobin 7.6 g/dL (14.0-18.0)
[2024-10-03] MEDS: ACETAMINOPHEN/ASPIRIN/CAFFEINE 250-250-65 MG TABLET 1 TABLET PO (11:17)
[2024-10-03 16:38] LABS: Glucose Point of Care 316 mg/dl (65-105)
[2024-10-03 16:45] LABS: Hematocrit 20.9 % (42.0-52.0); Hemoglobin 6.8 g/dL (14.0-18.0)
[2024-10-03] MEDS: INSULIN ASPART (*BKC) 100 UNITS/ML SUB-Q ×2 (17:04→23:55)
[2024-10-03] MEDS: SODIUM CHLORIDE 0.9% IV 250 ML 30 ML IV CONT (17:51)
[2024-10-03 18:30] LABS: Add Urine Microscopic? NO; Appearance Urine Clear (Clear); Bilirubin Urine Negative (Negative); Blood Urine Negative (Negative); Color Urine Yellow (Yellow); Glucose Urine UA 3+ mg/dL (Negative); Ketones Urine Negative (Negative); Leukocyte Esterase Ur Negative LEU/UL (Negative); Nitrate Urine Negative (Negative); Protein Urine Negative (Negative); Urobilinogen Urine 0.2 mg/dL (<2.0); pH Urine 5.5 (5.0-9.0)
[2024-10-03] MEDS: amLODIPine BESYLATE 10 MG TABLET PO (23:52)
[2024-10-04] VITALS (17 sets, daily range): BP systolic 110–177; BP diastolic 54–91; PULSE 76–100; RESP 16–91; TEMP 36.3–36.9; O2SAT 94–99
[2024-10-04] LABS: Glucose Point of Care 218 mg/dl (65-105)
--- NOTE | 2024-10-04 03:07 | PC.NURSE ---
Patient takes blood pressure medication, Lisinopril- Chlorothiazide 10mg PO daily at home but is being held due to bowel prepare for colonoscopy in morning. Dr. Nicolas notified, pt blood pressure was 171/66, P 92. Telephone order given for one time dose Amlodipine 10mg PO. Will continue to monitor vital signs.
[2024-10-04] MEDS: polyethylene glycoL 3350 238 GM BOTTLE 119 GM PO (04:03)
[2024-10-04] MEDS: PIPERACILLN/TAZ 3.375GM/NS50ML 3.375 GM/50 ML BAG IVPB ×2 (05:44→12:28)
[2024-10-04] MEDS: INSULIN ASPART (*BKC) 100 UNITS/ML SUB-Q ×3 (05:57→17:01)
[2024-10-04 05:58] LABS: Glucose Point of Care 316 mg/dl (65-105)
[2024-10-04] MEDS: SODIUM CHLORIDE 0.9% IV 1,000 ML 100 ML IV CONT (06:38)
[2024-10-04 06:50] LABS: Toxigenic C. Diff NEGATIVE (NEGATIVE)
[2024-10-04 08:02] LABS: Basophils Percent Auto 0.5 % (0.2-1.2); Eosinophils Absolute Auto 0.1 K/mm3 (0-0.3); Eosinophils Percent Auto 0.8 % (0-4.4); Hematocrit 23.2 % (42.0-52.0); Hemoglobin 7.2 g/dL (14.0-18.0); Immature Granulocyte Absolute 0.11 K/mm3 (0.00-0.031); Immature Granulocyte Percent A 1.4 % (0-0.5); Lymphocytes Percent Auto 26.2 % (18.3-44.2); Mean Corpuscular Volume 93.5 fl (80-100); Monocytes Absolute Auto 0.5 K/mm3 (0.1-0.6); Monocytes Percent Auto 7.1 % (2.6-8.5); Neutrophils Absolute Auto 4.9 K/mm3 (1.3-6.7); Nucleated Red Blood Cells Perc 0.4 % (0.0-0.2); Platelet Count Result 168 k/mm3 (150-375); Red Blood Count 2.48 M/mm3 (4.6-6.20); Red Cell Distribution Width 15.8 % (11.5-14.5); White Blood Count 7.6 K/mm3 (4.5-10.0)
[2024-10-04 08:15] LABS: Alanine Aminotransferase 22 U/L (6-50); Albumin Level 3.3 g/dL (3.5-5.1); Alkaline Phosphatase 59 U/L (38-126); Anion Gap 4 mmol/L (4-12); Aspartate Amino Transferase 27 U/L (17-59); Bilirubin,Total 0.6 mg/dL (0.2-1.3); Blood Urea Nitrogen 7 mg/dL (9-20); Calcium 7.6 mg/dL (8.4-10.2); Carbon Dioxide 30 mmol/L (22-30); Chloride 99 mmol/L (98-107); Estimated CRCL calculation 165 ml/min; Estimated Glomerular Filt Rate > 60; Glucose 305 mg/dL (65-110); Potassium 3.2 mmol/L (3.4-5.0); Sodium 133 mmol/L (137-145)
[2024-10-04] MEDS: PANTOPRAZOLE SODIUM IV 40 MG VIAL IV PUSH (08:20)
[2024-10-04] MEDS: SODIUM CHLORIDE 0.9% IV 250 ML 30 ML IV CONT (09:06)
[2024-10-04] MEDS: LACTATED RINGERS 1,000 ML 150 ML IV CONT (11:05)
--- NOTE | 2024-10-04 11:12 | WPDANESEPPF ---
Anes - Initial Pre Proc Eval Procedure: Operation Date: 10/04/24 13:30 Proposed Procedures p Colonoscopy - Juanjose Sanabria MD Date/Time: 10/04/24 11:12 Surgeon: Danilo Nicolas MD Pre Op Diagnosis: GI bleeding Patient Data Age: 39 Gender: M Height: 1.85 m Weight: 155.5 kg Last Vital Signs Temp 36.3 C L 10/04/24 11:03 Pulse 91 10/04/24 11:03 Resp 20 10/04/24 11:03 BP 161/71 H 10/04/24 11:03 Pulse Ox 97 10/04/24 11:03 O2 Del Method Room Air 10/04/24 11:03 Allergies Allergy/AdvReac Type Severity Reaction Status Date / Time No Known Allergies Allergy Verified 10/04/24 10:59 Home Medications Medication Instructions Recorded Confirmed Type multivitamin (Multiple Vitamins 1 tablet PO DAILY 02/14/20 10/03/24 History tablet) albuterol sulfate 90 mcg/actuation 2 puff inhalation Q4-6H PRN 10/18/21 10/03/24 Rx aerosol inhaler (ProAir HFA) shortness of breath or wheezing #8.5 grams lisinopril 20 1 tablet PO DAILY 10/03/24 10/03/24 History mg-hydrochlorothiazide 12.5 mg tablet Laboratory Tests 10/02/24 10/03/24 10/03/24 22:19 16:28 16:34 WBC RBC Hgb 6.8 L* g/dL (14.0-18.0) Hct 20.9 L* % (42.0-52.0) MCV MCH MCHC RDW Plt Count MPV Immature Gran % (Auto) Neut % (Auto) Lymph % (Auto) [place] % (Auto) Eos % (Auto) Baso % (Auto) Lymph # (Auto) [place] # (Auto) Eos # (Auto) Baso # (Auto) Abs Immat Gran (auto) Absolute Neuts (auto) Absolute Nucleated RBC Nucleated RBC % Sodium Potassium Chloride Carbon Dioxide Anion Gap BUN Creatinine Estim Creat Clear Calc Estimated GFR Glucose POC Capillary Glucose 316 H mg/dl (65-105) Calcium Total Bilirubin AST ALT Alkaline Phosphatase Total Protein Albumin Urine Color Urine Appearance Urine pH Ur Specific [place] Urine Protein Urine Glucose (UA) Urine Ketones Ur Blood (Man) Urine Nitrate Urine Bilirubin Urine Urobilinogen Leukocyte Esterase Rfl Stool Calprotectin C. difficile (PCR) Blood Type O Negative Antibody Screen Negative Crossmatch See Detail 10/03/24 10/03/24 10/04/24 18:13 23:52 05:42 WBC RBC Hgb Hct MCV MCH MCHC RDW Plt Count MPV Immature Gran % (Auto) Neut % (Auto) Lymph % (Auto) [place] % (Auto) Eos % (Auto) Baso % (Auto) Lymph # (Auto) [place] # (Auto) Eos # (Auto) Baso # (Auto) Abs Immat Gran (auto) Absolute Neuts (auto) Absolute Nucleated RBC Nucleated RBC % Sodium Potassium Chloride Carbon Dioxide Anion Gap BUN Creatinine Estim Creat Clear Calc Estimated GFR Glucose POC Capillary Glucose 218 H mg/dl (65-105) Calcium Total Bilirubin AST ALT Alkaline Phosphatase Total Protein Albumin Urine Color Yellow (Yellow) Urine Appearance Clear (Clear) Urine pH 5.5 (5.0-9.0) Ur Specific [place] 1.030 (1.001-1.035) Urine Protein Negative mg/dL (Negative) Urine Glucose (UA) 3+ H mg/dL (Negative) Urine Ketones Negative mg/dL (Negative) Ur Blood (Man) Negative (Negative) Urine Nitrate Negative (Negative) Urine Bilirubin Negative (Negative) Urine Urobilinogen 0.2 mg/dL (<2.0) Leukocyte Esterase Rfl Negative KELLI/UL (Negative) Stool Calprotectin Pending C. difficile (PCR) Negative (NEGATIVE) Blood Type Antibody Screen Crossmatch 10/04/24 10/04/24 05:52 07:40 WBC 7.6 K/mm3 (4.5-10.0) RBC 2.48 L M/mm3 (4.6-6.20) Hgb 7.2 L g/dL (14.0-18.0) Hct 23.2 L % (42.0-52.0) MCV 93.5 fl (80-100) MCH 29.0 pg (26-34) MCHC 31.0 L g/dl (32-36) RDW 15.8 H % (11.5-14.5) Plt Count 168 k/mm3 (150-375) MPV 11.0 H fl (7.4-10.4) Immature Gran % (Auto) 1.4 H % (0-0.5) Neut % (Auto) 64.0 % (45.5-73.1) Lymph % (Auto) 26.2 % (18.3-44.2) [place] % (Auto) 7.1 % (2.6-8.5) Eos % (Auto) 0.8 % (0-4.4) Baso % (Auto) 0.5 % (0.2-1.2) Lymph # (Auto) 2.00 K/mm3 (0.9-3.2) [place] # (Auto) 0.5 K/mm3 (0.1-0.6) Eos # (Auto) 0.1 K/mm3 (0-0.3) Baso # (Auto) 0.0 K/mm3 (0.0-0.1) Abs Immat Gran (auto) 0.11 H K/mm3 (0.00-0.031) Absolute Neuts (auto) 4.9 K/mm3 (1.3-6.7) Absolute Nucleated RBC 0.030 H K/mm3 (0.0-0.012) Nucleated RBC % 0.4 H % (0.0-0.2) Sodium 133 L mmol/L (137-145) Potassium 3.2 L mmol/L (3.4-5.0) Chloride 99 mmol/L (98-107) Carbon Dioxide 30 mmol/L (22-30) Anion Gap 4 mmol/L (4-12) BUN 7 L D mg/dL (9-20) Creatinine 0.80 mg/dL (0.7-1.3) Estim Creat Clear Calc 165 ml/min Estimated GFR > 60 (59 - ) Glucose 305 H mg/dL (65-110) POC Capillary Glucose 316 H mg/dl (65-105) Calcium 7.6 L mg/dL (8.4-10.2) Total Bilirubin 0.6 mg/dL (0.2-1.3) AST 27 U/L (17-59) ALT 22 U/L (6-50) Alkaline Phosphatase 59 U/L (38-126) Total Protein 6.0 L g/dL (6.3-8.2) Albumin 3.3 L g/dL (3.5-5.1) Urine Color Urine Appearance Urine pH Ur Specific [place] Urine Protein Urine Glucose (UA) Urine Ketones Ur Blood (Man) Urine Nitrate Urine Bilirubin Urine Urobilinogen Leukocyte Esterase Rfl Stool Calprotectin C. difficile (PCR) Blood Type Antibody Screen Crossmatch Patient hx anesthesia problems: none Family hx anesthesia problems: none Results Review: All pre-operative results and documents have been reviewed as part of the pre-operative evaluation. [facility] Past Medical History Medical History Arthritis of right knee Gastroesophageal reflux disease Hypertension Family History Family History Father Hypertension Mother Hypertension Sibling Patient's sister is in good health Family history of alcoholism Patient's sister is , Onset Age: 21 Social History Social History Smoking status: Former smoker Second hand tobacco smoke exposure: No Alcohol intake: never Substance use type: does not use Do You Feel Safe in your Home?: Yes Lack of Transportation: No Lack of Food: Never True Current Housing: I Have Housing Concerned About Future Housing: No Difficulty Paying Gas/Electric Bills: No Difficulty Paying for Meds: No Currently Unemployed: No Education: Associate Degree Difficulty w/ Childcare or Family Care: No Gender identity (if verbalized by the patient): Male Spiritual care concerns: No Anes - Eval Final PreProcedure Day of Procedure 10/04/24 11:12 Patient weight: morbidly obese Heart: regular rate and rhythm Lungs: decreased breath sounds Airway: Mallampati scale class II Neurological: alert and oriented Last oral intake: >/= 8 hours ASA classification: III Emergent: no Anesthetic plan: proceed Anesthesia type and monitoring: general GIVS and standard monitoring Results Review: All pre-operative results and documents have been reviewed as part of the pre-operative evaluation. Informed Consent: The patient's anesthetic plan and its attendant risks and benefits were discussed with the patient/family/POA. Questions were solicited and answers provided to the satisfaction of the patient/family/POA.
[2024-10-04 12:27] LABS: Glucose Point of Care 229 mg/dl (65-105)
[2024-10-04] MEDS: POTASSIUM CHLORIDE 20 MEQ ER TABLET 60 MEQ PO (12:30)
--- NOTE | 2024-10-04 12:51 | PM.IMPN ---
Progress Note: A&P Assessment and Plan (1) GI bleed: Qualifiers: GI bleed type/associated pathology: unspecified gastrointestinal hemorrhage type Qualified Code(s): K92.2 - Gastrointestinal hemorrhage, unspecified Code(s): K92.2 - Gastrointestinal hemorrhage, unspecified Status: Acute Assessment and Plan: Colonoscopy completed, multiple polyps removed and 40 mm Friable mass at hepatic flexure Surgery consulted (2) Mass of hepatic flexure of colon: Code(s): K63.89 - Other specified diseases of intestine Status: Acute Assessment and Plan: Surgery consulted, likely source of bleeding, no active bleeding noted during colonoscopy (3) Acute blood loss anemia: Code(s): D62 - Acute posthemorrhagic anemia Status: Acute Assessment and Plan: Hgb 7.2 today, ordered additional 1 unit PRBC transfusion (4) Hyponatremia: Code(s): E87.1 - Hypo-osmolality and hyponatremia Status: Acute Assessment and Plan: Stable at 133 (5) Hypertension: Code(s): I10 - Essential (primary) hypertension Status: Acute Assessment and Plan: holding home antihypertensives due to acute blood loss anemia (6) Type 2 diabetes mellitus with hyperglycemia: Code(s): E11.65 - Type 2 diabetes mellitus with hyperglycemia Status: Acute Assessment and Plan: hemoglobin A1c 12 extension educator nutrition consultation sliding scale insulin while in hospital Time Spent With Patient Time with patient: 25 - 35 minutes Subjective Date/time seen: 10/04/24 12:51 Interval history: Patient underwent colonoscopy today with 40 mm friable mass at the hepatic flexure and multiple other polyps removed. Hbg 7.2, ordered one unit PRBC transfusion. Surgery to see patient at GI request. Review of Systems Review of Systems: All systems reviewed & are unremarkable except as noted in HPI and below Exam Narrative: GENERAL: Well-appearing, well-nourished, and in no acute distress. HEAD: Normocephalic, atraumatic. ENT:? Mucous membranes moist. CHEST: Clear to auscultation.? No respiratory distress. HEART: Regular rate and rhythm. ? Normal peripheral pulses. ABDOMEN: Soft, nontender, nondistended. EXTREMITIES: Normal range of motion. No peripheral edema. SKIN: Warm dry normal color NEURO: Alert and oriented x3. PSYCH: Normal mood and affect Objective Data Vital Signs Vital Signs: Vital Signs - 24 hr 10/03/24 13:06 10/03/24 13:16 10/03/24 13:26 Temperature 36.4 C 36.4 C 36.4 C Pulse Rate 98 98 98 Respiratory Rate 18 18 18 Blood Pressure 156/83 H 156/83 H 156/83 H Pulse Oximetry 99 99 99 Oxygen Delivery 10/03/24 16:00 10/03/24 18:08 10/03/24 18:24 Temperature 36.9 C 36.8 C Pulse Rate 99 105 H 105 H Respiratory Rate 17 18 Blood Pressure 153/73 H 132/60 Pulse Oximetry 98 98 Oxygen Delivery 10/03/24 21:00 10/03/24 20:15 10/03/24 20:00 Temperature 36.6 C Pulse Rate 97 94 Respiratory Rate 20 Blood Pressure 169/88 H Pulse Oximetry 98 98 Oxygen Delivery Room Air 10/04/24 00:03 10/04/24 02:00 10/04/24 04:01 Temperature 36.8 C Pulse Rate 88 92 80 Respiratory Rate 16 Blood Pressure 177/66 H Pulse Oximetry 98 Oxygen Delivery 10/04/24 07:17 10/04/24 08:00 10/04/24 11:03 Temperature 36.8 C 36.3 C L Pulse Rate 86 91 Respiratory Rate 18 20 Blood Pressure 132/73 161/71 H Pulse Oximetry 96 96 97 Oxygen Delivery Room Air Room Air 10/04/24 11:37 10/04/24 11:47 10/04/24 11:57 Temperature Pulse Rate 77 76 78 Respiratory Rate 25 H 23 H 22 H Blood Pressure 110/55 L 111/54 L 135/79 Pulse Oximetry 98 98 97 Oxygen Delivery Room Air Room Air Room Air Intake/Output Intake/Output: Intake & Output 10/01/24 10/02/24 10/03/24 10/04/24 23:59 23:59 23:59 23:59 Intake Total 1000 2080 3097.5 Balance 1000 2080 3097.5 Meds/Results Medications: Active Medications Generic Name Dose Route Start Last Admin Trade Name Freq PRN Reason Stop Dose Admin Acetaminophen 650 mg 10/03/24 00:47 Acetaminophen 325 Mg Tablet PO Q4H PRN Mild Pain (1-3) or Fever Albuterol 2 puff 10/03/24 15:08 Albuterol Sulfate (*Sp) Aerosol 1 Puff INHALATION Q4-6H PRN shortness of breath or wheezing Dextrose 12.5 gm 10/03/24 15:11 Dextrose 50% 25 Gm/50 Ml Syringe IV PUSH PRN PRN Hypoglycemia Protocol Glucagon 1 mg 10/03/24 15:11 Glucagon For Inj 1 Mg Vial IM PRN PRN Hypoglycemia Protocol Glucose 15 gm 10/03/24 15:11 Glucose Oral Gel 15 Gm Of Glucse In 37.5 Gm Tube PO PRN PRN Hypoglycemia Protocol Piperacillin/Tazobactam/Dextrose 3.375 gm in 50 mls @ 100 mls/hr 10/03/24 03:10 10/04/24 12:28 Zosyn 3.375 Gm/Ns 50 Ml IVPB 100 mls/hr Q6HR DAVIN Administration Dextrose 1,000 mls @ 100 mls/hr 10/03/24 15:11 Dextrose 5% 1,000 Ml IVPB PRN PRN Hypoglycemia Protocol Sodium Chloride 250 mls @ 30 mls/hr 10/04/24 08:42 10/04/24 09:06 Normal Saline Iv IV CONT 10/04/24 17:01 30 mls/hr .Q8H20M STA Administration Insulin Aspart 2 - 5 units 10/03/24 18:00 10/04/24 12:32 Insulin Aspart (*Bkc) 100 Units/Ml SUB-Q 2 units Q6HR DAVIN Administration Protocol Ondansetron HCl 4 mg 10/02/24 22:48 Ondansetron Inj 4 Mg/2 Ml Vial IV PUSH Q4H PRN Nausea Pantoprazole Sodium 40 mg 10/03/24 09:00 10/04/24 08:20 Pantoprazole Sodium Iv 40 Mg Vial IV PUSH 40 mg QAM DAVIN Administration Radiology Results: ITS Impressions Abdomen/Pelvis CT 10/02/24 21:51 IMPRESSION: Hepatomegaly and steatosis. Findings suspicious for a colonic mass at the hepatic flexure. Recommend referral for endoscopy. Labs Labs: Laboratory Results - last 24 hr 10/02/24 10/03/24 10/03/24 22:19 16:28 16:34 WBC RBC Hgb 6.8 L* Hct 20.9 L* MCV MCH MCHC RDW Plt Count MPV Immature Gran % (Auto) Neut % (Auto) Lymph % (Auto) [place] % (Auto) Eos % (Auto) Baso % (Auto) Lymph # (Auto) [place] # (Auto) Eos # (Auto) Baso # (Auto) Abs Immat Gran (auto) Absolute Neuts (auto) Absolute Nucleated RBC Nucleated RBC % Sodium Potassium Chloride Carbon Dioxide Anion Gap BUN Creatinine Estim Creat Clear Calc Estimated GFR Glucose POC Capillary Glucose 316 H Calcium Total Bilirubin AST ALT Alkaline Phosphatase Total Protein Albumin Urine Color Urine Appearance Urine pH Ur Specific [place] Urine Protein Urine Glucose (UA) Urine Ketones Ur Blood (Man) Urine Nitrate Urine Bilirubin Urine Urobilinogen Leukocyte Esterase Rfl C. difficile (PCR) Blood Type O Negative Antibody Screen Negative Crossmatch See Detail 10/03/24 10/03/24 10/04/24 18:13 23:52 05:42 WBC RBC Hgb Hct MCV MCH MCHC RDW Plt Count MPV Immature Gran % (Auto) Neut % (Auto) Lymph % (Auto) [place] % (Auto) Eos % (Auto) Baso % (Auto) Lymph # (Auto) [place] # (Auto) Eos # (Auto) Baso # (Auto) Abs Immat Gran (auto) Absolute Neuts (auto) Absolute Nucleated RBC Nucleated RBC % Sodium Potassium Chloride Carbon Dioxide Anion Gap BUN Creatinine Estim Creat Clear Calc Estimated GFR Glucose POC Capillary Glucose 218 H Calcium Total Bilirubin AST ALT Alkaline Phosphatase Total Protein Albumin Urine Color Yellow Urine Appearance Clear Urine pH 5.5 Ur Specific [place] 1.030 Urine Protein Negative Urine Glucose (UA) 3+ H Urine Ketones Negative Ur Blood (Man) Negative Urine Nitrate Negative Urine Bilirubin Negative Urine Urobilinogen 0.2 Leukocyte Esterase Rfl Negative C. difficile (PCR) Negative Blood Type Antibody Screen Crossmatch 10/04/24 10/04/24 10/04/24 05:52 07:40 12:24 WBC 7.6 RBC 2.48 L Hgb 7.2 L Hct 23.2 L MCV 93.5 MCH 29.0 MCHC 31.0 L RDW 15.8 H Plt Count 168 MPV 11.0 H Immature Gran % (Auto) 1.4 H Neut % (Auto) 64.0 Lymph % (Auto) 26.2 [place] % (Auto) 7.1 Eos % (Auto) 0.8 Baso % (Auto) 0.5 Lymph # (Auto) 2.00 [place] # (Auto) 0.5 Eos # (Auto) 0.1 Baso # (Auto) 0.0 Abs Immat Gran (auto) 0.11 H Absolute Neuts (auto) 4.9 Absolute Nucleated RBC 0.030 H Nucleated RBC % 0.4 H Sodium 133 L Potassium 3.2 L Chloride 99 Carbon Dioxide 30 Anion Gap 4 BUN 7 L D Creatinine 0.80 Estim Creat Clear Calc 165 Estimated GFR > 60 Glucose 305 H POC Capillary Glucose 316 H 229 H Calcium 7.6 L Total Bilirubin 0.6 AST 27 ALT 22 Alkaline Phosphatase 59 Total Protein 6.0 L Albumin 3.3 L Urine Color Urine Appearance Urine pH Ur Specific [place] Urine Protein Urine Glucose (UA) Urine Ketones Ur Blood (Man) Urine Nitrate Urine Bilirubin Urine Urobilinogen Leukocyte Esterase Rfl C. difficile (PCR) Blood Type Antibody Screen Crossmatch Pulse Oximetry SpO2 results: 96-99% on room air Attestation: I personally reviewed and interpreted this pulse oximetry as follows: Interpretation: No need for supplemental oxygenation at this time Quality VTE Prophylaxis VTE prophylaxis: mechanical ordered Hospitalist [facility] Advance Care Plan I have confirmed that the patient's Advanced Care Plan is present, code status is documented, or surrogate decision maker is listed in patient medical record.: Yes Medication Reconciliation I have utilized all available resources to obtain, update and review the patients current medications (includes all prescriptions, OTC, herbals, cannabis, and nutritional supplements).: Yes
--- NOTE | 2024-10-04 15:19 | PM.CNGS ---
Assessment and Plan Assessment and plan (1) Mass of hepatic flexure of colon: Code(s): K63.89 - Other specified diseases of intestine Status: Acute Assessment and Plan: The patient presented with GI bleed and anemia with CT findings of a possible colon mass at the hepatic flexure. No signs of obstruction or evidence of distant metastasis on his CT scan. Colonoscopy done today that showed a malignant-appearing mass in the hepatic flexure. Biopsies are pending. I discussed the option of proceeding with surgery during this hospitalization or the possibility of discharging and scheduling this as an outpatient if his hemoglobin remains stable without any issues with further bleeding. He would prefer to stay and have the surgery while he is admitted. He is currently on a diabetic diet and will require bowel prep again prior to his colon resection. Okay to continue a diabetic diet for now. Dr. Butterfield will work on adding him to the surgery schedule possibly on Thursday and we can prep him for surgery on . Will continue to follow along and plan accordingly. (2) Type 2 diabetes mellitus with hyperglycemia: Code(s): E11.65 - Type 2 diabetes mellitus with hyperglycemia Status: Acute Assessment and Plan: Newly diagnosed type 2 diabetes mellitus. Management per Hospitalist. He will need adequate glycemic control in the perioperative period. It would probably be beneficial to have the certified lactation educator consulted while the patient is admitted. (3) Hypertension: Code(s): I10 - Essential (primary) hypertension Status: Acute (4) Acute blood loss anemia: Code(s): D62 - Acute posthemorrhagic anemia Status: Acute Assessment and Plan: Hgb 7.2 this morning. He is receiving his 2nd unit of PRBCs this afternoon. Likely related to GI bleed/malignancy. Continue to trend. (5) Morbid obesity with BMI of 45.0-49.9, adult: Code(s): E66.01 - Morbid (severe) obesity due to excess calories; Z68.42 - Body mass index [BMI] 45.0-49.9, adult Status: Acute Plan I have discussed the patient's case and plan of care with Dr. Butterfield. Thank you for allowing us to see the patient in consultation and we will continue to follow along with you. History of Present Illness Consult details Consult date: 10/04/24 Reason for consult: other (Hepatic flexure mass) Requesting physician: Juanjose Sanabria MD Narrative: This is a 39-year-old man with PMH obesity and hypertension, who we have been asked to see in surgical consultation for hepatic flexure mass. He presented to the ED two nights ago with complaints of blood in his stool x 1 day. He denies any abdominal pain, nausea, vomiting, weight loss, or other complaints leading up to this episode. He had a fair amount of blood in his stool that persisted and prompted his arrival to the ED. Labs showed WBC count 16,600, hemoglobin 8.7, sodium 129, glucose 323. CT scan of the abdomen and pelvis with IV contrast showed hepatomegaly and steatosis, as well as finding suspicious for colon mass at the hepatic flexure with recommendations of referral for endoscopy. He was admitted and GI was consulted. The patient underwent colonoscopy today with findings of multiple polyps that were biopsied as well as a malignant-appearing mass at the hepatic flexure with no evidence of bleeding. He was also found to have few diverticula in the left colon without bleeding and a few small sized internal hemorrhoids in the rectum that were not actively bleeding. Our service has been consulted for the colon mass. He is now seen on medical floor. He is tolerating a diabetic diet. He denies a known history of diabetes and his hgb A1c on this admission was 12.0. He reports he has not had any bloody stools since yesterday around 5 pm. His hemoglobin came down as low as 6.8 and he is receiving his 2nd unit of PRBCs. Review of Systems Review of Systems: All systems reviewed & are unremarkable except as noted in HPI and below PMFSH Past Medical History Medical History Arthritis of right knee Gastroesophageal reflux disease Hypertension Surgical History Surgical History No pertinent past surgical history Family History Family History Father Hypertension Mother Hypertension Sibling Patient's sister is in good health Family history of alcoholism Patient's sister is , Onset Age: 21 Social History Social History Smoking status: Former smoker Second hand tobacco smoke exposure: No Alcohol intake: never Substance use type: does not use Do You Feel Safe in your Home?: Yes Lack of Transportation: No Lack of Food: Never True Current Housing: I Have Housing Concerned About Future Housing: No Difficulty Paying Gas/Electric Bills: No Difficulty Paying for Meds: No Currently Unemployed: No Education: Associate Degree Difficulty w/ Childcare or Family Care: No Gender identity (if verbalized by the patient): Male Spiritual care concerns: No Meds Home Medications and Allergies Home Medications Medication Instructions Recorded Confirmed Type multivitamin (Multiple Vitamins 1 tablet PO DAILY 02/14/20 10/04/24 History tablet) albuterol sulfate 90 mcg/actuation 2 puff inhalation Q4-6H PRN 10/18/21 10/03/24 Rx aerosol inhaler (ProAir HFA) shortness of breath or wheezing #8.5 grams lisinopril 20 1 tablet PO DAILY 10/03/24 10/04/24 History mg-hydrochlorothiazide 12.5 mg tablet Allergies Allergy/AdvReac Type Severity Reaction Status Date / Time No Known Allergies Allergy Verified 10/04/24 10:59 Vital Signs Vital Signs - 24 hr 10/03/24 16:00 10/03/24 18:08 10/03/24 18:24 Temperature 98.5 F 98.3 F Pulse Rate 99 105 H 105 H Respiratory Rate 17 18 Blood Pressure 153/73 H 132/60 Pulse Oximetry 98 98 Oxygen Delivery 10/03/24 21:00 10/03/24 20:15 10/03/24 20:00 Temperature 97.9 F Pulse Rate 97 94 Respiratory Rate 20 Blood Pressure 169/88 H Pulse Oximetry 98 98 Oxygen Delivery Room Air 10/04/24 00:03 10/04/24 02:00 10/04/24 04:01 Temperature 98.2 F Pulse Rate 88 92 80 Respiratory Rate 16 Blood Pressure 177/66 H Pulse Oximetry 98 Oxygen Delivery 10/04/24 07:17 10/04/24 08:00 10/04/24 11:03 Temperature 98.3 F 97.4 F L Pulse Rate 86 91 Respiratory Rate 18 20 Blood Pressure 132/73 161/71 H Pulse Oximetry 96 96 97 Oxygen Delivery Room Air Room Air 10/04/24 11:37 10/04/24 11:47 10/04/24 11:57 Temperature Pulse Rate 77 76 78 Respiratory Rate 25 H 23 H 22 H Blood Pressure 110/55 L 111/54 L 135/79 Pulse Oximetry 98 98 97 Oxygen Delivery Room Air Room Air Room Air 10/04/24 08:00 10/04/24 13:28 10/04/24 13:39 Temperature 98.5 F 97.8 F Pulse Rate 83 85 79 Respiratory Rate 20 17 Blood Pressure 145/88 H 164/87 H Pulse Oximetry 99 97 Oxygen Delivery 10/04/24 13:40 10/04/24 14:40 Temperature 97.7 F 98.1 F Pulse Rate 92 100 Respiratory Rate 18 18 Blood Pressure 137/64 155/91 H Pulse Oximetry 98 99 Oxygen Delivery Exam Const: General: comfortable and no acute distress Nutritional Appearance: obese Orientation/consciousness: patient oriented x3 HENMT: Head: normocephalic and atraumatic Ears: hearing grossly normal bilaterally Mouth: Yes moist mucous membranes Eyes: General: appearance normal, both eyes and all related structures Pupils: Equal, round and reactive pupils present Neck: Neck: normal visual inspection and full ROM Resp: Effort & Inspection: no respiratory distress Auscultation: clear to auscultation bilaterally Cardio: Rate: regular rate Rhythm: regular rhythm Heart sounds: S1 normal heart sound present and S2 normal heart sound present GI: Inspection: non-distended and obesity GI Palp: Yes Soft to palpation, No Tenderness to palpation present (GI), No Guarding due to palpation present (GI), Yes Hernia present umbilical (soft umbilical hernia) 3-10 cm ( about 3-4 cm, but difficult to appreciate defect on exam) and No Rebound tenderness present Percussion: Yes normal to percussion Auscultation: normal bowel sounds Rectal Exam: deferred Skin: General skin exam: normal color Neuro: General: moves all extremities and no focal motor deficits Speech: normal speech Motor exam (neuro): 5/5 motor strength present throughout Extrem: General: normal to inspection and no edema Psych: Mental Status: mental status grossly normal Attitude: cooperative Insight: Good insight present (Psych) Judgement: Good judgement present (Psych) Results Labs 10/04/24 07:40 10/04/24 07:40 Labs: Abnormal lab results 10/02/24 10/03/24 10/03/24 Range/Units 22:19 16:28 16:34 RBC (4.6-6.20) M/mm3 Hgb 6.8 L* (14.0-18.0) g/dL Hct 20.9 L* (42.0-52.0) % MCHC (32-36) g/dl RDW (11.5-14.5) % MPV (7.4-10.4) fl Immature Gran % (Auto) (0-0.5) % Abs Immat Gran (auto) (0.00-0.031) K/mm3 Absolute Nucleated RBC (0.0-0.012) K/mm3 Nucleated RBC % (0.0-0.2) % Sodium (137-145) mmol/L Potassium (3.4-5.0) mmol/L BUN (9-20) mg/dL Glucose (65-110) mg/dL POC Capillary Glucose 316 H (65-105) mg/dl Calcium (8.4-10.2) mg/dL Total Protein (6.3-8.2) g/dL Albumin (3.5-5.1) g/dL Urine Glucose (UA) (Negative) mg/dL Crossmatch See Detail 10/03/24 10/03/24 10/04/24 Range/Units 18:13 23:52 05:52 RBC (4.6-6.20) M/mm3 Hgb (14.0-18.0) g/dL Hct (42.0-52.0) % MCHC (32-36) g/dl RDW (11.5-14.5) % MPV (7.4-10.4) fl Immature Gran % (Auto) (0-0.5) % Abs Immat Gran (auto) (0.00-0.031) K/mm3 Absolute Nucleated RBC (0.0-0.012) K/mm3 Nucleated RBC % (0.0-0.2) % Sodium (137-145) mmol/L Potassium (3.4-5.0) mmol/L BUN (9-20) mg/dL Glucose (65-110) mg/dL POC Capillary Glucose 218 H 316 H (65-105) mg/dl Calcium (8.4-10.2) mg/dL Total Protein (6.3-8.2) g/dL Albumin (3.5-5.1) g/dL Urine Glucose (UA) 3+ H (Negative) mg/dL Crossmatch 10/04/24 10/04/24 Range/Units 07:40 12:24 RBC 2.48 L (4.6-6.20) M/mm3 Hgb 7.2 L (14.0-18.0) g/dL Hct 23.2 L (42.0-52.0) % MCHC 31.0 L (32-36) g/dl RDW 15.8 H (11.5-14.5) % MPV 11.0 H (7.4-10.4) fl Immature Gran % (Auto) 1.4 H (0-0.5) % Abs Immat Gran (auto) 0.11 H (0.00-0.031) K/mm3 Absolute Nucleated RBC 0.030 H (0.0-0.012) K/mm3 Nucleated RBC % 0.4 H (0.0-0.2) % Sodium 133 L (137-145) mmol/L Potassium 3.2 L (3.4-5.0) mmol/L BUN 7 L D (9-20) mg/dL Glucose 305 H (65-110) mg/dL POC Capillary Glucose 229 H (65-105) mg/dl Calcium 7.6 L (8.4-10.2) mg/dL Total Protein 6.0 L (6.3-8.2) g/dL Albumin 3.3 L (3.5-5.1) g/dL Urine Glucose (UA) (Negative) mg/dL Crossmatch Diabetes panel 10/04/24 Range/Units 07:40 Sodium 133 L (137-145) mmol/L Potassium 3.2 L (3.4-5.0) mmol/L Chloride 99 (98-107) mmol/L Carbon Dioxide 30 (22-30) mmol/L BUN 7 L D (9-20) mg/dL Creatinine 0.80 (0.7-1.3) mg/dL Glucose 305 H (65-110) mg/dL Calcium 7.6 L (8.4-10.2) mg/dL AST 27 (17-59) U/L ALT 22 (6-50) U/L Alkaline Phosphatase 59 (38-126) U/L Total Protein 6.0 L (6.3-8.2) g/dL Albumin 3.3 L (3.5-5.1) g/dL Calcium panel 10/04/24 Range/Units 07:40 Calcium 7.6 L (8.4-10.2) mg/dL Albumin 3.3 L (3.5-5.1) g/dL Pituitary panel 10/04/24 Range/Units 07:40 Sodium 133 L (137-145) mmol/L Potassium 3.2 L (3.4-5.0) mmol/L Chloride 99 (98-107) mmol/L Carbon Dioxide 30 (22-30) mmol/L BUN 7 L D (9-20) mg/dL Creatinine 0.80 (0.7-1.3) mg/dL Glucose 305 H (65-110) mg/dL Calcium 7.6 L (8.4-10.2) mg/dL Adrenal panel 10/04/24 Range/Units 07:40 Sodium 133 L (137-145) mmol/L Potassium 3.2 L (3.4-5.0) mmol/L Chloride 99 (98-107) mmol/L Carbon Dioxide 30 (22-30) mmol/L BUN 7 L D (9-20) mg/dL Creatinine 0.80 (0.7-1.3) mg/dL Glucose 305 H (65-110) mg/dL Calcium 7.6 L (8.4-10.2) mg/dL Total Bilirubin 0.6 (0.2-1.3) mg/dL AST 27 (17-59) U/L ALT 22 (6-50) U/L Alkaline Phosphatase 59 (38-126) U/L Total Protein 6.0 L (6.3-8.2) g/dL Albumin 3.3 L (3.5-5.1) g/dL All other labs normal. Imaging Additional studies: ITS Impressions Abdomen/Pelvis CT 10/02/24 21:51 IMPRESSION: Hepatomegaly and steatosis. Findings suspicious for a colonic mass at the hepatic flexure. Recommend referral for endoscopy.
[2024-10-04 16:23] LABS: Glucose Point of Care 250 mg/dl (65-105)
[2024-10-04 17:37] LABS: Hematocrit 25.6 % (42.0-52.0); Hemoglobin 8.4 g/dL (14.0-18.0)
[2024-10-05] VITALS (10 sets, daily range): BP systolic 148–159; BP diastolic 80–90; PULSE 72–86; RESP 18; TEMP 36.4–36.6; O2SAT 96–100
[2024-10-05 07:07] LABS: Basophils Percent Auto 0.5 % (0.2-1.2); Eosinophils Absolute Auto 0.1 K/mm3 (0-0.3); Eosinophils Percent Auto 1.2 % (0-4.4); Hematocrit 25.8 % (42.0-52.0); Hemoglobin 8.1 g/dL (14.0-18.0); Immature Granulocyte Absolute 0.14 K/mm3 (0.00-0.031); Immature Granulocyte Percent A 1.7 % (0-0.5); Lymphocytes Absolute Auto 1.94 K/mm3 (0.9-3.2); Lymphocytes Percent Auto 23.8 % (18.3-44.2); Mean Corpuscular HGB Conc 31.4 g/dl (32-36); Mean Corpuscular Hemoglobin 29.6 pg (26-34); Mean Corpuscular Volume 94.2 fl (80-100); Monocytes Absolute Auto 0.5 K/mm3 (0.1-0.6); Monocytes Percent Auto 6.6 % (2.6-8.5); Neutrophils Absolute Auto 5.4 K/mm3 (1.3-6.7); Neutrophils Percent Auto 66.2 % (45.5-73.1); Nucleated Red Blood Cells Perc 0.5 % (0.0-0.2); Platelet Count Result 184 k/mm3 (150-375); Red Blood Count 2.74 M/mm3 (4.6-6.20); Red Cell Distribution Width 16.6 % (11.5-14.5); White Blood Count 8.2 K/mm3 (4.5-10.0)
[2024-10-05 07:43] LABS: Alanine Aminotransferase 21 U/L (6-50); Albumin Level 3.4 g/dL (3.5-5.1); Alkaline Phosphatase 62 U/L (38-126); Anion Gap 4 mmol/L (4-12); Aspartate Amino Transferase 24 U/L (17-59); Bilirubin,Total 0.6 mg/dL (0.2-1.3); Blood Urea Nitrogen 5 mg/dL (9-20); Carbon Dioxide 29 mmol/L (22-30); Chloride 103 mmol/L (98-107); Estimated CRCL calculation 165 ml/min; Estimated Glomerular Filt Rate > 60; Glucose 204 mg/dL (65-110); Potassium 3.6 mmol/L (3.4-5.0); Sodium 136 mmol/L (137-145)
[2024-10-05 08:02] LABS: Glucose Point of Care 183 mg/dl (65-105)
[2024-10-05 08:35] LABS: Carcinoembryonic Antigen 2.3 ng/mL (0.0-3.0)
[2024-10-05] MEDS: PANTOPRAZOLE SODIUM IV 40 MG VIAL IV PUSH (08:51)
--- NOTE | 2024-10-05 10:14 | PM.IMPN ---
Progress Note: A&P Assessment and Plan (1) GI bleed: Qualifiers: GI bleed type/associated pathology: unspecified gastrointestinal hemorrhage type Qualified Code(s): K92.2 - Gastrointestinal hemorrhage, unspecified Code(s): K92.2 - Gastrointestinal hemorrhage, unspecified Status: Acute Assessment and Plan: Colonoscopy completed, multiple polyps removed and 40 mm Friable mass at hepatic flexure Surgery consulted possible surgery /thursday The patient continued to have hematochezia and underwent colonoscopy today. A malignant-appearing mass in the hepatic flexure was identified and biopsied. The patient has no abdominal pain. He does have an umbilical hernia on exam. This does not appear to cause him any symptoms at this time and he has known about it for a long time. He does remain at risk for recurrent bleeding with this mass and would benefit more urgent surgical intervention. I have discussed proceeding with hand assisted laparoscopic extended right hemicolectomy. Patient had already eaten a solid meal after the colonoscopy by the time we were consulted, therefore he will have to go through another bowel prep prior to surgery. Will plan to check a CEA level and CT chest tomorrow. Will then work on arranging surgery in the coming days. (2) Mass of hepatic flexure of colon: Code(s): K63.89 - Other specified diseases of intestine Status: Acute Assessment and Plan: Surgery consulted, likely source of bleeding, no active bleeding noted during colonoscopy (3) Acute blood loss anemia: Code(s): D62 - Acute posthemorrhagic anemia Status: Acute Assessment and Plan: Hgb 7.2 today, ordered additional 1 unit PRBC transfusion (4) Hyponatremia: Code(s): E87.1 - Hypo-osmolality and hyponatremia Status: Acute Assessment and Plan: Stable at 133 (5) Hypertension: Code(s): I10 - Essential (primary) hypertension Status: Acute Assessment and Plan: holding home antihypertensives due to acute blood loss anemia (6) Type 2 diabetes mellitus with hyperglycemia: Code(s): E11.65 - Type 2 diabetes mellitus with hyperglycemia Status: Acute Assessment and Plan: hemoglobin A1c 12 clinical systems educator nutrition consultation sliding scale insulin while in hospital ss, hypoglycemic protocol Time Spent With Patient Time with patient: Greater than 35 minutes Subjective Date/time seen: 10/05/24 10:14 Interval history: Patient underwent colonoscopy today with 40 mm friable mass at the hepatic flexure and multiple other polyps removed. Hbg 7.2, ordered one unit PRBC transfusion. Surgery to see patient at GI request. The patient continued to have hematochezia and underwent colonoscopy today. A malignant-appearing mass in the hepatic flexure was identified and biopsied. The patient has no abdominal pain. He does have an umbilical hernia on exam. This does not appear to cause him any symptoms at this time and he has known about it for a long time. He does remain at risk for recurrent bleeding with this mass and would benefit more urgent surgical intervention. CEA level ordered, and CT chest today, 10/05. Pt is seen and examined. pleasant, alert, no pain, no n/v/d Review of Systems Review of Systems: All systems reviewed & are unremarkable except as noted in HPI and below Constitutional: Constitutional: Denies body ache(s), Denies difficulty sleeping, Reports fatigue, Denies headache(s), Denies lethargy, Denies night sweats and Denies weakness Eyes: Eyes: Reports no additional eye complaints and Reports blurry vision ENT: Reports Normal hearing present, Reports dysphagia, Denies vertigo, Denies headache(s), Reports epistaxis, Reports nasal congestion and Denies neck pain Cardiovascular: Cardiovascular: Denies pedal edema, Denies leg edema, Denies lightheadedness, Denies palpitations, Denies dyspnea and Denies dyspnea on exertion Respiratory: Respiratory: Denies hemoptysis, Denies dyspnea and Denies dyspnea on exertion Gastrointestinal: Gastrointestinal: Reports hematochezia, Denies constipation, Reports dysphagia, Denies heartburn, Denies diarrhea and Denies nausea Genitourinary: Genitourinary: Denies flank pain, Denies urinary frequency, Denies urinary hesitancy, Denies urinary incontinence and Denies urinary urgency Musculoskeletal: Musculoskeletal: Denies abnormal gait, Denies back pain, Denies myalgias, Denies arthralgias, Denies joint swelling and Denies neck pain Integumentary/Breasts: Skin/Breast: Reports dry skin Neurologic: Denies system reviewed and no additional complaints, except as documented, Reports Normal hearing present, Denies Abnormal speech present, Denies abnormal gait, Denies behavioral changes, Denies confusion, Denies vertigo, Denies headache(s) and Denies weakness Psychiatric: Psychiatric: Reports anxiety, Denies behavioral changes and Denies confusion Endocrine: Endocrine: Reports fatigue and Denies palpitations Exam Narrative: GENERAL: Well-appearing, well-nourished, and in no acute distress. HEAD: Normocephalic, atraumatic. ENT:? Mucous membranes moist. CHEST: Clear to auscultation.? No respiratory distress. HEART: Regular rate and rhythm. ? Normal peripheral pulses. ABDOMEN: Soft, nontender, nondistended. EXTREMITIES: Normal range of motion. No peripheral edema. SKIN: Warm dry normal color NEURO: Alert and oriented x3. PSYCH: Normal mood and affect Const: General: no acute distress; No in distress, confusion or uncomfortable Orientation/consciousness: No confusion HENMT: Ears: TM's abnormal bilaterally Mouth: No moist mucous membranes, No dry mucous membranes and No Abnormal oral and palatal mucosa present Eyes: General: appearance abnormal, both eyes Sclera: sclerae normal Pupils: Equal, round and reactive pupils present EOM: EOM not intact bilaterally Neck: Neck: supple Thyroid: thyroid normal Lymphatic: lymphadenopathy Resp: Auscultation: not clear to auscultation bilaterally, no crackles, no rales, no rhonchi and no wheezes Cardio: Rate: regular rate and not bradycardic Rhythm: regular rhythm GI: Auscultation: normal bowel sounds Skin: General skin exam: normal color Neuro: General: No confusion Cranial nerves: Yes Equal, round and reactive pupils present and Yes Normal hearing present Speech: No Abnormal speech present Motor exam (neuro): 5/5 motor strength present throughout, Normal motor muscle tone present throughout, strength normal and abnormal movements noted Sensory Exam: normal sensation Extrem: General: normal to inspection, no edema and no pedal edema Psych: Mental Status: mental status grossly normal Objective Data Vital Signs Vital Signs: Vital Signs - 24 hr 10/04/24 11:03 10/04/24 11:37 10/04/24 11:47 Temperature 97.4 F L Pulse Rate 91 77 76 Respiratory Rate 20 25 H 23 H Blood Pressure 161/71 H 110/55 L 111/54 L Pulse Oximetry 97 98 98 Oxygen Delivery Room Air Room Air Room Air 10/04/24 11:57 10/04/24 13:28 10/04/24 13:39 Temperature 98.5 F 97.8 F Pulse Rate 78 85 79 Respiratory Rate 22 H 20 17 Blood Pressure 135/79 145/88 H 164/87 H Pulse Oximetry 97 99 97 Oxygen Delivery Room Air 10/04/24 13:40 10/04/24 14:40 10/04/24 14:40 Temperature 97.7 F 98.1 F 98.3 F Pulse Rate 92 100 91 Respiratory Rate 18 18 91 H Blood Pressure 137/64 155/91 H 165/75 H Pulse Oximetry 98 99 94 Oxygen Delivery 10/04/24 16:59 10/04/24 16:00 10/04/24 21:26 Temperature 98.4 F 98.0 F Pulse Rate 93 92 92 Respiratory Rate 17 16 Blood Pressure 157/80 H 130/72 Pulse Oximetry 98 99 Oxygen Delivery 10/04/24 20:00 10/05/24 00:00 10/05/24 06:00 Temperature 97.6 F Pulse Rate 93 86 81 Respiratory Rate 18 Blood Pressure 148/80 H Pulse Oximetry 97 Oxygen Delivery 10/05/24 04:00 10/05/24 08:51 10/05/24 08:03 Temperature Pulse Rate 73 72 Respiratory Rate Blood Pressure Pulse Oximetry Oxygen Delivery Room Air 10/05/24 08:23 Temperature Pulse Rate Respiratory Rate Blood Pressure Pulse Oximetry 96 Oxygen Delivery Room Air Intake/Output Intake/Output: Intake & Output 10/02/24 10/03/24 10/04/24 10/05/24 23:59 23:59 23:59 23:59 Intake Total 1000 2080 4594.5 200 Balance 1000 2080 4594.5 200 Meds/Results Medications: Active Medications Generic Name Dose Route Start Last Admin Trade Name Freq PRN Reason Stop Dose Admin Acetaminophen 650 mg 10/03/24 00:47 Acetaminophen 325 Mg Tablet PO Q4H PRN Mild Pain (1-3) or Fever Albuterol 2 puff 10/03/24 15:08 Albuterol Sulfate (*Sp) Aerosol 1 Puff INHALATION Q4-6H PRN shortness of breath or wheezing Dextrose 12.5 gm 10/03/24 15:11 Dextrose 50% 25 Gm/50 Ml Syringe IV PUSH PRN PRN Hypoglycemia Protocol Glucagon 1 mg 10/03/24 15:11 Glucagon For Inj 1 Mg Vial IM PRN PRN Hypoglycemia Protocol Glucose 15 gm 10/03/24 15:11 Glucose Oral Gel 15 Gm Of Glucse In 37.5 Gm Tube PO PRN PRN Hypoglycemia Protocol Dextrose 1,000 mls @ 100 mls/hr 10/03/24 15:11 Dextrose 5% 1,000 Ml IVPB PRN PRN Hypoglycemia Protocol Insulin Aspart 4 - 8 units 10/04/24 17:00 10/05/24 08:47 Insulin Aspart (*Bkc) 100 Units/Ml SUB-Q Not Given TIDWM DAVIN Protocol Ondansetron HCl 4 mg 10/02/24 22:48 Ondansetron Inj 4 Mg/2 Ml Vial IV PUSH Q4H PRN Nausea Pantoprazole Sodium 40 mg 10/03/24 09:00 10/05/24 08:51 Pantoprazole Sodium Iv 40 Mg Vial IV PUSH 40 mg QAM DAVIN Administration Radiology Results: ITS Impressions Abdomen/Pelvis CT 10/02/24 21:51 IMPRESSION: Hepatomegaly and steatosis. Findings suspicious for a colonic mass at the hepatic flexure. Recommend referral for endoscopy. Chest CT 10/05/24 09:28 IMPRESSION: 1. Mild right basilar atelectasis. No suspicious pulmonary nodule or acute cardiopulmonary disease. 2. Diffuse hepatic steatosis. 3. Cholelithiasis. Labs Labs: Laboratory Results - last 24 hr 10/02/24 10/04/24 10/04/24 22:19 12:24 16:14 WBC RBC Hgb Hct MCV MCH MCHC RDW Plt Count MPV Immature Gran % (Auto) Neut % (Auto) Lymph % (Auto) [place] % (Auto) Eos % (Auto) Baso % (Auto) Lymph # (Auto) [place] # (Auto) Eos # (Auto) Baso # (Auto) Abs Immat Gran (auto) Absolute Neuts (auto) Absolute Nucleated RBC Nucleated RBC % Sodium Potassium Chloride Carbon Dioxide Anion Gap BUN Creatinine Estim Creat Clear Calc Estimated GFR Glucose POC Capillary Glucose 229 H 250 H Calcium Total Bilirubin AST ALT Alkaline Phosphatase Total Protein Albumin Carcinoembryonic Ag Blood Type O Negative Antibody Screen Negative Crossmatch See Detail 10/04/24 10/05/24 10/05/24 17:25 06:40 07:49 WBC 8.2 RBC 2.74 L Hgb 8.4 L 8.1 L Hct 25.6 L 25.8 L MCV 94.2 MCH 29.6 MCHC 31.4 L RDW 16.6 H Plt Count 184 MPV 11.0 H Immature Gran % (Auto) 1.7 H Neut % (Auto) 66.2 Lymph % (Auto) 23.8 [place] % (Auto) 6.6 Eos % (Auto) 1.2 Baso % (Auto) 0.5 Lymph # (Auto) 1.94 [place] # (Auto) 0.5 Eos # (Auto) 0.1 Baso # (Auto) 0.0 Abs Immat Gran (auto) 0.14 H Absolute Neuts (auto) 5.4 Absolute Nucleated RBC 0.040 H Nucleated RBC % 0.5 H Sodium 136 L Potassium 3.6 Chloride 103 Carbon Dioxide 29 Anion Gap 4 BUN 5 L Creatinine 0.80 Estim Creat Clear Calc 165 Estimated GFR > 60 Glucose 204 H POC Capillary Glucose 183 H Calcium 8.0 L Total Bilirubin 0.6 AST 24 ALT 21 Alkaline Phosphatase 62 Total Protein 6.0 L Albumin 3.4 L Carcinoembryonic Ag 2.3 Blood Type Antibody Screen Crossmatch Quality VTE Prophylaxis VTE prophylaxis: mechanical ordered
[2024-10-05 11:43] LABS: Glucose Point of Care 211 mg/dl (65-105)
[2024-10-05] MEDS: INSULIN ASPART (*BKC) 100 UNITS/ML SUB-Q (11:46)
[2024-10-05] MEDS: NICOTINE (*PBKC) 14 MG PATCH 1 PATCH TRANSDERM (11:48)
--- NOTE | 2024-10-05 12:23 | P.PNGS_ITS ---
Progress Note: A&P Assessment and Plan (1) Mass of hepatic flexure of colon: Code(s): K63.89 - Other specified diseases of intestine Status: Acute Assessment and Plan: * Plan to proceed with QUAN right hemicolectomy by Dr. Butterfield on Thursday. Surgery was discussed in detail with the patient, including a description of the procedure, risks, benefits, alternatives, and expected recovery were discussed. All questions answered and he agrees to proceed. * Will plan bowel prep for surgery tomorrow. * He can have a diabetic diet today and will start clear liquids tomorrow in preparation for surgery (2) Type 2 diabetes mellitus with hyperglycemia: Code(s): E11.65 - Type 2 diabetes mellitus with hyperglycemia Status: Acute Assessment and Plan: * Newly diagnosed type 2 diabetic. Management per Hospitalist (3) Acute blood loss anemia: Code(s): D62 - Acute posthemorrhagic anemia Status: Acute Assessment and Plan: * No rectal bleeding x 2 days. Hgb stable. Continue to monitor labs. (4) Morbid obesity with BMI of 45.0-49.9, adult: Code(s): E66.01 - Morbid (severe) obesity due to excess calories; Z68.42 - Body mass index [BMI] 45.0-49.9, adult Status: Acute Plan I have discussed the patient's case and plan of care with Dr. Butterfield. Subjective Subjective Date/Time Seen: 10/05/24 12:23 Patient reports: no new complaints, tolerating a regular diet and flatus Interval history: Patient denies any acute issues overnight. No abdominal pain or issues with his diet. He has a lot of flatus. No rectal bleeding overnight. Hgb stable at 8.1. Exam Const: General: comfortable and no acute distress Orientation/consciousness: patient oriented x3 GI: Inspection: non-distended GI Palp: Yes Soft to palpation, No Tenderness to palpation present (GI), No Guarding due to palpation present (GI) and No Rebound tenderness present Auscultation: normal bowel sounds Objective Data Vital Signs Vital Signs: Vital Signs - 24 hr 10/04/24 13:28 10/04/24 13:39 10/04/24 13:40 Temperature 98.5 F 97.8 F 97.7 F Pulse Rate 85 79 92 Respiratory Rate 20 17 18 Blood Pressure 145/88 H 164/87 H 137/64 Pulse Oximetry 99 97 98 Oxygen Delivery 10/04/24 14:40 10/04/24 14:40 10/04/24 16:59 Temperature 98.1 F 98.3 F 98.4 F Pulse Rate 100 91 93 Respiratory Rate 18 91 H 17 Blood Pressure 155/91 H 165/75 H 157/80 H Pulse Oximetry 99 94 98 Oxygen Delivery 10/04/24 16:00 10/04/24 21:26 10/04/24 20:00 Temperature 98.0 F Pulse Rate 92 92 93 Respiratory Rate 16 Blood Pressure 130/72 Pulse Oximetry 99 Oxygen Delivery 10/05/24 00:00 10/05/24 06:00 10/05/24 04:00 Temperature 97.6 F Pulse Rate 86 81 73 Respiratory Rate 18 Blood Pressure 148/80 H Pulse Oximetry 97 Oxygen Delivery 10/05/24 08:51 10/05/24 08:03 10/05/24 08:23 Temperature Pulse Rate 72 Respiratory Rate Blood Pressure Pulse Oximetry 96 Oxygen Delivery Room Air Room Air Intake/Output Intake/Output: Intake & Output 10/02/24 10/03/24 10/04/24 10/05/24 23:59 23:59 23:59 23:59 Intake Total 1000 2080 4594.5 440 Balance 1000 2080 4594.5 440 Meds/Results Medications: Active Medications Generic Name Dose Route Start Last Admin Trade Name Freq PRN Reason Stop Dose Admin Acetaminophen 650 mg 10/03/24 00:47 Acetaminophen 325 Mg Tablet PO Q4H PRN Mild Pain (1-3) or Fever Albuterol 2 puff 10/03/24 15:08 Albuterol Sulfate (*Sp) Aerosol 1 Puff INHALATION Q4-6H PRN shortness of breath or wheezing Dextrose 12.5 gm 10/03/24 15:11 Dextrose 50% 25 Gm/50 Ml Syringe IV PUSH PRN PRN Hypoglycemia Protocol Glucagon 1 mg 10/03/24 15:11 Glucagon For Inj 1 Mg Vial IM PRN PRN Hypoglycemia Protocol Glucose 15 gm 10/03/24 15:11 Glucose Oral Gel 15 Gm Of Glucse In 37.5 Gm Tube PO PRN PRN Hypoglycemia Protocol Dextrose 1,000 mls @ 100 mls/hr 10/03/24 15:11 Dextrose 5% 1,000 Ml IVPB PRN PRN Hypoglycemia Protocol Insulin Aspart 4 - 8 units 12/03/24 17:00 10/05/24 11:46 Insulin Aspart (*Bkc) 100 Units/Ml SUB-Q 4 units TIDWM DAVIN Administration Protocol Nicotine 1 patch 10/05/24 11:25 10/05/24 11:48 Nicotine (*Pbkc) 14 Mg Patch TRANSDERM 1 patch DAILY DAVIN Administration Ondansetron HCl 4 mg 10/02/24 22:48 Ondansetron Inj 4 Mg/2 Ml Vial IV PUSH Q4H PRN Nausea Pantoprazole Sodium 40 mg 10/03/24 09:00 10/05/24 08:51 Pantoprazole Sodium Iv 40 Mg Vial IV PUSH 40 mg QAM DAVIN Administration Radiology Results: ITS Impressions Abdomen/Pelvis CT 10/02/24 21:51 IMPRESSION: Hepatomegaly and steatosis. Findings suspicious for a colonic mass at the hepatic flexure. Recommend referral for endoscopy. Chest CT 10/05/24 09:28 IMPRESSION: 1. Mild right basilar atelectasis. No suspicious pulmonary nodule or acute cardiopulmonary disease. 2. Diffuse hepatic steatosis. 3. Cholelithiasis. Labs Labs: Laboratory Results - last 24 hr 10/02/24 10/04/24 10/04/24 22:19 12:24 16:14 WBC RBC Hgb Hct MCV MCH MCHC RDW Plt Count MPV Immature Gran % (Auto) Neut % (Auto) Lymph % (Auto) [place] % (Auto) Eos % (Auto) Baso % (Auto) Lymph # (Auto) [place] # (Auto) Eos # (Auto) Baso # (Auto) Abs Immat Gran (auto) Absolute Neuts (auto) Absolute Nucleated RBC Nucleated RBC % Sodium Potassium Chloride Carbon Dioxide Anion Gap BUN Creatinine Estim Creat Clear Calc Estimated GFR Glucose POC Capillary Glucose 229 H 250 H Calcium Total Bilirubin AST ALT Alkaline Phosphatase Total Protein Albumin Carcinoembryonic Ag Blood Type O Negative Antibody Screen Negative Crossmatch See Detail 10/04/24 10/05/24 10/05/24 17:25 06:40 07:49 WBC 8.2 RBC 2.74 L Hgb 8.4 L 8.1 L Hct 25.6 L 25.8 L MCV 94.2 MCH 29.6 MCHC 31.4 L RDW 16.6 H Plt Count 184 MPV 11.0 H Immature Gran % (Auto) 1.7 H Neut % (Auto) 66.2 Lymph % (Auto) 23.8 [place] % (Auto) 6.6 Eos % (Auto) 1.2 Baso % (Auto) 0.5 Lymph # (Auto) 1.94 [place] # (Auto) 0.5 Eos # (Auto) 0.1 Baso # (Auto) 0.0 Abs Immat Gran (auto) 0.14 H Absolute Neuts (auto) 5.4 Absolute Nucleated RBC 0.040 H Nucleated RBC % 0.5 H Sodium 136 L Potassium 3.6 Chloride 103 Carbon Dioxide 29 Anion Gap 4 BUN 5 L Creatinine 0.80 Estim Creat Clear Calc 165 Estimated GFR > 60 Glucose 204 H POC Capillary Glucose 183 H Calcium 8.0 L Total Bilirubin 0.6 AST 24 ALT 21 Alkaline Phosphatase 62 Total Protein 6.0 L Albumin 3.4 L Carcinoembryonic Ag 2.3 Blood Type Antibody Screen Crossmatch 10/05/24 11:31 WBC RBC Hgb Hct MCV MCH MCHC RDW Plt Count MPV Immature Gran % (Auto) Neut % (Auto) Lymph % (Auto) [place] % (Auto) Eos % (Auto) Baso % (Auto) Lymph # (Auto) [place] # (Auto) Eos # (Auto) Baso # (Auto) Abs Immat Gran (auto) Absolute Neuts (auto) Absolute Nucleated RBC Nucleated RBC % Sodium Potassium Chloride Carbon Dioxide Anion Gap BUN Creatinine Estim Creat Clear Calc Estimated GFR Glucose POC Capillary Glucose 211 H Calcium Total Bilirubin AST ALT Alkaline Phosphatase Total Protein Albumin Carcinoembryonic Ag Blood Type Antibody Screen Crossmatch
--- NOTE | 2024-10-05 13:26 | WPDANESPN ---
Anes - Prog Note Post-Op Date/Time: 10/05/24 13:26 Cardiovascular status: normal Respiratory status: normal Airway patency: baseline Mental status: baseline Post-Op hydration status: normal Vital Signs: Last Vital Signs Temp 97.6 F 10/05/24 06:00 Pulse 76 10/05/24 12:02 Resp 18 10/05/24 06:00 BP 148/80 H 10/05/24 06:00 Pulse Ox 96 10/05/24 08:23 O2 Del Method Room Air 10/05/24 08:51 Pain Score (VAS): 0/10 I/O: Intake & Output 10/04/24 10/05/24 10/05/24 23:59 07:59 15:59 Intake Total 1087 200 240 Balance 1087 200 240 Laboratory Tests 10/05/24 06:40 10/05/24 06:40 10/02/24 10/04/24 10/04/24 22:19 16:14 17:25 WBC RBC Hgb 8.4 L Hct 25.6 L MCV MCH MCHC RDW Plt Count MPV Immature Gran % (Auto) Neut % (Auto) Lymph % (Auto) [place] % (Auto) Eos % (Auto) Baso % (Auto) Lymph # (Auto) [place] # (Auto) Eos # (Auto) Baso # (Auto) Abs Immat Gran (auto) Absolute Neuts (auto) Absolute Nucleated RBC Nucleated RBC % Sodium Potassium Chloride Carbon Dioxide Anion Gap BUN Creatinine Estim Creat Clear Calc Estimated GFR Glucose POC Capillary Glucose 250 H Calcium Total Bilirubin AST ALT Alkaline Phosphatase Total Protein Albumin Carcinoembryonic Ag Blood Type O Negative Antibody Screen Negative Crossmatch See Detail 10/05/24 10/05/24 10/05/24 06:40 07:49 11:31 WBC 8.2 RBC 2.74 L Hgb 8.1 L Hct 25.8 L MCV 94.2 MCH 29.6 MCHC 31.4 L RDW 16.6 H Plt Count 184 MPV 11.0 H Immature Gran % (Auto) 1.7 H Neut % (Auto) 66.2 Lymph % (Auto) 23.8 [place] % (Auto) 6.6 Eos % (Auto) 1.2 Baso % (Auto) 0.5 Lymph # (Auto) 1.94 [place] # (Auto) 0.5 Eos # (Auto) 0.1 Baso # (Auto) 0.0 Abs Immat Gran (auto) 0.14 H Absolute Neuts (auto) 5.4 Absolute Nucleated RBC 0.040 H Nucleated RBC % 0.5 H Sodium 136 L Potassium 3.6 Chloride 103 Carbon Dioxide 29 Anion Gap 4 BUN 5 L Creatinine 0.80 Estim Creat Clear Calc 165 Estimated GFR > 60 Glucose 204 H POC Capillary Glucose 183 H 211 H Calcium 8.0 L Total Bilirubin 0.6 AST 24 ALT 21 Alkaline Phosphatase 62 Total Protein 6.0 L Albumin 3.4 L Carcinoembryonic Ag 2.3 Blood Type Antibody Screen Crossmatch Post-procedural complaints: none Patient Feedback: Patient satisfied with anesthetic care.
--- NOTE | 2024-10-05 14:23 | WPDGIPROGNO ---
Progress Note: A&P Assessment and Plan (1) Mass of hepatic flexure of colon: Code(s): K63.89 - Other specified diseases of intestine Status: Acute Assessment and Plan: surgery planning intervention pending final pathology, may need oncology evaluation pending cea level (2) Acute blood loss anemia: Code(s): D62 - Acute posthemorrhagic anemia Status: Acute Assessment and Plan: s/p blood transfusion probably from large colon mass no more active bleeding (3) Type 2 diabetes mellitus with hyperglycemia: Code(s): E11.65 - Type 2 diabetes mellitus with hyperglycemia Status: Acute (4) Hypertension: Code(s): I10 - Essential (primary) hypertension Status: Acute (5) GI bleed: Qualifiers: GI bleed type/associated pathology: unspecified gastrointestinal hemorrhage type Qualified Code(s): K92.2 - Gastrointestinal hemorrhage, unspecified Code(s): K92.2 - Gastrointestinal hemorrhage, unspecified Status: Acute (6) Morbid obesity with BMI of 45.0-49.9, adult: Code(s): E66.01 - Morbid (severe) obesity due to excess calories; Z68.42 - Body mass index [BMI] 45.0-49.9, adult Status: Acute Subjective Date/time seen: 10/05/24 14:23 Interval history: no changes colonoscopy yesterday noted large mass at hepatic flexure Review of Systems Review of Systems: All systems reviewed & are unremarkable except as noted in HPI and below Exam Const: General: comfortable and no acute distress Other: obese HENMT: Face/Nose/Sinus: Normal nares present Eyes: General: appearance normal, both eyes and all related structures Neck: Neck: no JVD Resp: Auscultation: clear to auscultation bilaterally Cardio: Rate: regular rate Rhythm: regular rhythm GI: Inspection: non-distended GI Palp: Yes Soft to palpation Skin: General skin exam: normal color Neuro: General: gait normal Speech: normal speech Extrem: General: normal to inspection Psych: Mental Status: mental status grossly normal Objective Data Vital Signs Vital Signs: Vital Signs - 24 hr 10/04/24 14:40 10/04/24 14:40 10/04/24 16:59 Temperature 98.1 F 98.3 F 98.4 F Pulse Rate 100 91 93 Respiratory Rate 18 91 H 17 Blood Pressure 155/91 H 165/75 H 157/80 H Pulse Oximetry 99 94 98 Oxygen Delivery 10/04/24 16:00 10/04/24 21:26 10/04/24 20:00 Temperature 98.0 F Pulse Rate 92 92 93 Respiratory Rate 16 Blood Pressure 130/72 Pulse Oximetry 99 Oxygen Delivery 10/05/24 00:00 10/05/24 06:00 10/05/24 04:00 Temperature 97.6 F Pulse Rate 86 81 73 Respiratory Rate 18 Blood Pressure 148/80 H Pulse Oximetry 97 Oxygen Delivery 10/05/24 08:51 10/05/24 08:03 10/05/24 08:23 Temperature Pulse Rate 72 Respiratory Rate Blood Pressure Pulse Oximetry 96 Oxygen Delivery Room Air Room Air 10/05/24 12:02 Temperature Pulse Rate 76 Respiratory Rate Blood Pressure Pulse Oximetry Oxygen Delivery Intake/Output Intake/Output: Intake & Output 10/02/24 10/03/24 10/04/24 10/05/24 23:59 23:59 23:59 23:59 Intake Total 1000 2080 4594.5 680 Balance 1000 2080 4594.5 680 Meds/Results Medications: Active Medications Generic Name Dose Route Start Last Admin Trade Name Freq PRN Reason Stop Dose Admin Acetaminophen 650 mg 10/03/24 00:47 Acetaminophen 325 Mg Tablet PO Q4H PRN Mild Pain (1-3) or Fever Albuterol 2 puff 10/03/24 15:08 Albuterol Sulfate (*Sp) Aerosol 1 Puff INHALATION Q4-6H PRN shortness of breath or wheezing Dextrose 12.5 gm 10/03/24 15:11 Dextrose 50% 25 Gm/50 Ml Syringe IV PUSH PRN PRN Hypoglycemia Protocol Glucagon 1 mg 10/03/24 15:11 Glucagon For Inj 1 Mg Vial IM PRN PRN Hypoglycemia Protocol Glucose 15 gm 10/03/24 15:11 Glucose Oral Gel 15 Gm Of Glucse In 37.5 Gm Tube PO PRN PRN Hypoglycemia Protocol Dextrose 1,000 mls @ 100 mls/hr 10/03/24 15:11 Dextrose 5% 1,000 Ml IVPB PRN PRN Hypoglycemia Protocol Insulin Aspart 4 - 8 units 10/04/24 17:00 10/05/24 11:46 Insulin Aspart (*Bkc) 100 Units/Ml SUB-Q 4 units TIDWM DAVIN Administration Protocol Nicotine 1 patch 10/05/24 11:25 10/05/24 11:48 Nicotine (*Pbkc) 14 Mg Patch TRANSDERM 1 patch DAILY DAVIN Administration Ondansetron HCl 4 mg 10/02/24 22:48 Ondansetron Inj 4 Mg/2 Ml Vial IV PUSH Q4H PRN Nausea Pantoprazole Sodium 40 mg 10/03/24 09:00 10/05/24 08:51 Pantoprazole Sodium Iv 40 Mg Vial IV PUSH 40 mg QAM DAVIN Administration Radiology Results: ITS Impressions Abdomen/Pelvis CT 10/02/24 21:51 IMPRESSION: Hepatomegaly and steatosis. Findings suspicious for a colonic mass at the hepatic flexure. Recommend referral for endoscopy. Chest CT 10/05/24 09:28 IMPRESSION: 1. Mild right basilar atelectasis. No suspicious pulmonary nodule or acute cardiopulmonary disease. 2. Diffuse hepatic steatosis. 3. Cholelithiasis. Labs Labs: Laboratory Results - last 24 hr 10/02/24 10/04/24 10/04/24 22:19 16:14 17:25 WBC RBC Hgb 8.4 L Hct 25.6 L MCV MCH MCHC RDW Plt Count MPV Immature Gran % (Auto) Neut % (Auto) Lymph % (Auto) [place] % (Auto) Eos % (Auto) Baso % (Auto) Lymph # (Auto) [place] # (Auto) Eos # (Auto) Baso # (Auto) Abs Immat Gran (auto) Absolute Neuts (auto) Absolute Nucleated RBC Nucleated RBC % Sodium Potassium Chloride Carbon Dioxide Anion Gap BUN Creatinine Estim Creat Clear Calc Estimated GFR Glucose POC Capillary Glucose 250 H Calcium Total Bilirubin AST ALT Alkaline Phosphatase Total Protein Albumin Carcinoembryonic Ag Crossmatch See Detail 10/05/24 10/05/24 10/05/24 06:40 07:49 11:31 WBC 8.2 RBC 2.74 L Hgb 8.1 L Hct 25.8 L MCV 94.2 MCH 29.6 MCHC 31.4 L RDW 16.6 H Plt Count 184 MPV 11.0 H Immature Gran % (Auto) 1.7 H Neut % (Auto) 66.2 Lymph % (Auto) 23.8 [place] % (Auto) 6.6 Eos % (Auto) 1.2 Baso % (Auto) 0.5 Lymph # (Auto) 1.94 [place] # (Auto) 0.5 Eos # (Auto) 0.1 Baso # (Auto) 0.0 Abs Immat Gran (auto) 0.14 H Absolute Neuts (auto) 5.4 Absolute Nucleated RBC 0.040 H Nucleated RBC % 0.5 H Sodium 136 L Potassium 3.6 Chloride 103 Carbon Dioxide 29 Anion Gap 4 BUN 5 L Creatinine 0.80 Estim Creat Clear Calc 165 Estimated GFR > 60 Glucose 204 H POC Capillary Glucose 183 H 211 H Calcium 8.0 L Total Bilirubin 0.6 AST 24 ALT 21 Alkaline Phosphatase 62 Total Protein 6.0 L Albumin 3.4 L Carcinoembryonic Ag 2.3 Crossmatch
[2024-10-05 17:02] LABS: Glucose Point of Care 200 mg/dl (65-105)
[2024-10-05 21:12] LABS: Glucose Point of Care 174 mg/dl (65-105)
[2024-10-06] VITALS: PULSE 76
[2024-10-06 04:00] VITALS: PULSE 70
[2024-10-06 06:00] VITALS: BP 141/91; PULSE 84; RESP 18; TEMP 36.4; O2SAT 99
[2024-10-06 07:30] LABS: Basophils Absolute Auto 0.1 K/mm3 (0.0-0.1); Basophils Percent Auto 0.7 % (0.2-1.2); Eosinophils Absolute Auto 0.1 K/mm3 (0-0.3); Eosinophils Percent Auto 0.9 % (0-4.4); Hematocrit 30.2 % (42.0-52.0); Hemoglobin 9.1 g/dL (14.0-18.0); Immature Granulocyte Absolute 0.13 K/mm3 (0.00-0.031); Immature Granulocyte Percent A 1.7 % (0-0.5); Immature Platelet Fraction Pct 8.6 % (0.9-11.2); Lymphocytes Absolute Auto 1.99 K/mm3 (0.9-3.2); Lymphocytes Percent Auto 26.1 % (18.3-44.2); Mean Corpuscular HGB Conc 30.1 g/dl (32-36); Mean Corpuscular Volume 96.2 fl (80-100); Mean Platelet Volume 11.6 fl (7.4-10.4); Monocytes Absolute Auto 0.5 K/mm3 (0.1-0.6); Monocytes Percent Auto 6.6 % (2.6-8.5); Neutrophils Absolute Auto 4.9 K/mm3 (1.3-6.7); Nucleated Red Blood Cells Perc 0.5 % (0.0-0.2); Platelet Count Result 191 k/mm3 (150-375); Red Blood Count 3.14 M/mm3 (4.6-6.20); Red Cell Distribution Width 16.3 % (11.5-14.5); White Blood Count 7.6 K/mm3 (4.5-10.0)
[2024-10-06 08:00] VITALS: PULSE 81
[2024-10-06 08:04] LABS: Alanine Aminotransferase 32 U/L (6-50); Albumin Level 3.9 g/dL (3.5-5.1); Alkaline Phosphatase 57 U/L (38-126); Anion Gap 5 mmol/L (4-12); Aspartate Amino Transferase 54 U/L (17-59); Blood Urea Nitrogen 5 mg/dL (9-20); Calcium 8.4 mg/dL (8.4-10.2); Carbon Dioxide 28 mmol/L (22-30); Chloride 103 mmol/L (98-107); Estimated CRCL calculation 186 ml/min; Estimated Glomerular Filt Rate > 60; Glucose 171 mg/dL (65-110); Potassium 4.1 mmol/L (3.4-5.0); Sodium 136 mmol/L (137-145)
[2024-10-06 08:09] LABS: Glucose Point of Care 169 mg/dl (65-105)
[2024-10-06] MEDS: NICOTINE (*PBKC) 14 MG PATCH 1 PATCH TRANSDERM (08:40)
[2024-10-06] MEDS: PANTOPRAZOLE SODIUM IV 40 MG VIAL IV PUSH (08:40)
--- NOTE | 2024-10-06 09:46 | PM.IMPN ---
Progress Note: A&P Assessment and Plan (1) GI bleed: Qualifiers: GI bleed type/associated pathology: unspecified gastrointestinal hemorrhage type Qualified Code(s): K92.2 - Gastrointestinal hemorrhage, unspecified Code(s): K92.2 - Gastrointestinal hemorrhage, unspecified Status: Acute Assessment and Plan: Colonoscopy completed, multiple polyps removed and 40 mm Friable mass at hepatic flexure Surgery consulted possible surgery /thursday The patient continued to have hematochezia and underwent colonoscopy today. A malignant-appearing mass in the hepatic flexure was identified and biopsied. The patient has no abdominal pain. He does have an umbilical hernia on exam. This does not appear to cause him any symptoms at this time and he has known about it for a long time. He does remain at risk for recurrent bleeding with this mass and would benefit more urgent surgical intervention. I have discussed proceeding with hand assisted laparoscopic extended right hemicolectomy. Patient had already eaten a solid meal after the colonoscopy by the time we were consulted, therefore he will have to go through another bowel prep prior to surgery. Will plan to check a CEA level and CT chest tomorrow. Will then work on arranging surgery in the coming days. 10/06 surgery for thursday- NPO at midnight. no more bleeding reports. H/H stable- 9.1/30.2 (2) Mass of hepatic flexure of colon: Code(s): K63.89 - Other specified diseases of intestine Status: Acute Assessment and Plan: Surgery consulted see plan above (3) Acute blood loss anemia: Code(s): D62 - Acute posthemorrhagic anemia Status: Acute Assessment and Plan: reviewed and stable today (4) Hyponatremia: Code(s): E87.1 - Hypo-osmolality and hyponatremia Status: Acute Assessment and Plan: Stable at 133 (5) Hypertension: Code(s): I10 - Essential (primary) hypertension Status: Acute Assessment and Plan: BP had been elevated- will resume home lisinopril/hctz (6) Type 2 diabetes mellitus with hyperglycemia: Code(s): E11.65 - Type 2 diabetes mellitus with hyperglycemia Status: Acute Assessment and Plan: hemoglobin A1c 12 inclusion special educator nutrition consultation sliding scale insulin while in hospital ss, hypoglycemic protocol 10/06- bs reviewed-improved- 171 this am Time Spent With Patient Time with patient: Greater than 35 minutes Subjective Date/time seen: 10/06/24 09:46 Interval history: Patient underwent colonoscopy today with 40 mm friable mass at the hepatic flexure and multiple other polyps removed. Hbg 7.2, ordered one unit PRBC transfusion. Surgery to see patient at GI request. The patient continued to have hematochezia and underwent colonoscopy today. A malignant-appearing mass in the hepatic flexure was identified and biopsied. The patient has no abdominal pain. He does have an umbilical hernia on exam. This does not appear to cause him any symptoms at this time and he has known about it for a long time. He does remain at risk for recurrent bleeding with this mass and would benefit more urgent surgical intervention. CEA level ordered, and CT chest today, 10/05. Pt is seen and examined. pleasant, alert, no pain, no n/v/d 10/06- No acute events overnight. npo at midnight. Review of Systems Review of Systems: All systems reviewed & are unremarkable except as noted in HPI and below Constitutional: Constitutional: Denies body ache(s), Denies difficulty sleeping, Reports fatigue, Denies headache(s), Denies lethargy, Denies night sweats and Denies weakness Eyes: Eyes: Reports no additional eye complaints and Reports blurry vision ENT: Reports Normal hearing present, Reports dysphagia, Denies vertigo, Denies headache(s), Reports epistaxis, Reports nasal congestion and Denies neck pain Cardiovascular: Cardiovascular: Denies pedal edema, Denies leg edema, Denies lightheadedness, Denies palpitations, Denies dyspnea and Denies dyspnea on exertion Respiratory: Respiratory: Denies hemoptysis, Denies dyspnea and Denies dyspnea on exertion Gastrointestinal: Gastrointestinal: Reports hematochezia, Denies constipation, Reports dysphagia, Denies heartburn, Denies diarrhea and Denies nausea Genitourinary: Genitourinary: Denies flank pain, Denies urinary frequency, Denies urinary hesitancy, Denies urinary incontinence and Denies urinary urgency Musculoskeletal: Musculoskeletal: Denies abnormal gait, Denies back pain, Denies myalgias, Denies arthralgias, Denies joint swelling and Denies neck pain Integumentary/Breasts: Skin/Breast: Reports dry skin Neurologic: Denies system reviewed and no additional complaints, except as documented, Reports Normal hearing present, Denies Abnormal speech present, Denies abnormal gait, Denies behavioral changes, Denies confusion, Denies vertigo, Denies headache(s) and Denies weakness Psychiatric: Psychiatric: Reports anxiety, Denies behavioral changes and Denies confusion Endocrine: Endocrine: Reports fatigue and Denies palpitations Exam Narrative: GENERAL: Well-appearing, well-nourished, and in no acute distress. HEAD: Normocephalic, atraumatic. ENT:? Mucous membranes moist. CHEST: Clear to auscultation.? No respiratory distress. HEART: Regular rate and rhythm. ? Normal peripheral pulses. ABDOMEN: Soft, nontender, nondistended. EXTREMITIES: Normal range of motion. No peripheral edema. SKIN: Warm dry normal color NEURO: Alert and oriented x3. PSYCH: Normal mood and affect Const: General: no acute distress; No in distress, confusion or uncomfortable Orientation/consciousness: No confusion HENMT: Ears: TM's abnormal bilaterally Mouth: No moist mucous membranes, No dry mucous membranes and No Abnormal oral and palatal mucosa present Eyes: General: appearance abnormal, both eyes Sclera: sclerae normal Pupils: Equal, round and reactive pupils present EOM: EOM not intact bilaterally Neck: Neck: supple Thyroid: thyroid normal Lymphatic: lymphadenopathy Resp: Auscultation: not clear to auscultation bilaterally, no crackles, no rales, no rhonchi and no wheezes Cardio: Rate: regular rate and not bradycardic Rhythm: regular rhythm GI: Auscultation: normal bowel sounds Skin: General skin exam: normal color Neuro: General: No confusion Cranial nerves: Yes Equal, round and reactive pupils present and Yes Normal hearing present Speech: No Abnormal speech present Motor exam (neuro): 5/5 motor strength present throughout, Normal motor muscle tone present throughout, strength normal and abnormal movements noted Sensory Exam: normal sensation Extrem: General: normal to inspection, no edema and no pedal edema Psych: Mental Status: mental status grossly normal Objective Data Vital Signs Vital Signs: Vital Signs - 24 hr 10/05/24 12:02 10/05/24 14:00 10/05/24 16:03 Temperature 97.7 F Pulse Rate 76 80 74 Respiratory Rate 18 Blood Pressure 154/82 H Pulse Oximetry 98 Oxygen Delivery 10/05/24 21:45 10/05/24 20:00 10/05/24 20:00 Temperature 97.9 F Pulse Rate 79 Respiratory Rate 18 Blood Pressure 159/90 H Pulse Oximetry 100 98 Oxygen Delivery Room Air Room Air 10/06/24 00:00 10/06/24 04:00 10/06/24 06:00 Temperature 97.6 F Pulse Rate 76 70 84 Respiratory Rate 18 Blood Pressure 141/91 H Pulse Oximetry 99 Oxygen Delivery Intake/Output Intake/Output: Intake & Output 10/03/24 10/04/24 10/05/24 10/06/24 23:59 23:59 23:59 23:59 Intake Total 2079 4594.5 920 550 Balance 2079 4594.5 920 550 Meds/Results Medications: Active Medications Generic Name Dose Route Start Last Admin Trade Name Freq PRN Reason Stop Dose Admin Acetaminophen 650 mg 10/03/24 00:47 Acetaminophen 325 Mg Tablet PO Q4H PRN Mild Pain (1-3) or Fever Albuterol 2 puff 10/03/24 15:08 Albuterol Sulfate (*Sp) Aerosol 1 Puff INHALATION Q4-6H PRN shortness of breath or wheezing Dextrose 12.5 gm 10/03/24 15:11 Dextrose 50% 25 Gm/50 Ml Syringe IV PUSH PRN PRN Hypoglycemia Protocol Erythromycin 1,000 mg 10/06/24 14:00 Erythromycin 250 Mg Tablet PO 10/07/24 00:01 TID@00,14,15 DAVIN Glucagon 1 mg 10/03/24 15:11 Glucagon For Inj 1 Mg Vial IM PRN PRN Hypoglycemia Protocol Glucose 15 gm 10/03/24 15:11 Glucose Oral Gel 15 Gm Of Glucse In 37.5 Gm Tube PO PRN PRN Hypoglycemia Protocol Dextrose 1,000 mls @ 100 mls/hr 10/03/24 15:11 Dextrose 5% 1,000 Ml IVPB PRN PRN Hypoglycemia Protocol Lactated Ringer's 1,000 mls @ 80 mls/hr 10/06/24 22:00 Lr - Lactated Ringers Iv IV CONT .[id number] DAVIN Cefazolin Sodium 100 mls @ 200 mls/hr 10/07/24 10:00 Ancef 3 Gm/D5w 100 Ml IVPB 10/07/24 10:29 ONCE ONE Metronidazole 500 mg in 100 mls @ 100 mls/hr 10/07/24 10:00 Flagyl 500 Mg/Iso Soln 100 Ml IVPB 10/07/24 10:59 ONCE ONE Insulin Aspart 4 - 8 units 10/04/24 17:00 10/06/24 08:36 Insulin Aspart (*Bkc) 100 Units/Ml SUB-Q Not Given [facility] Protocol Neomycin Sulfate 1,000 mg 10/06/24 14:00 Neomycin Sulfate 500 Mg Tab PO 10/07/24 00:01 TID@00,14,15 DAVIN Nicotine 1 patch 10/05/24 11:25 10/06/24 08:40 Nicotine (*Pbkc) 14 Mg Patch TRANSDERM 1 patch DAILY DAVIN Administration Ondansetron HCl 4 mg 10/02/24 22:48 Ondansetron Inj 4 Mg/2 Ml Vial IV PUSH Q4H PRN Nausea Pantoprazole Sodium 40 mg 10/03/24 09:00 10/06/24 08:40 Pantoprazole Sodium Iv 40 Mg Vial IV PUSH 40 mg QAM DAVIN Administration Polyethylene Glycol 238 gm 10/06/24 16:00 Polyethylene Glycol 3350 238 Gm Bottle PO 10/06/24 16:01 ONCE ONE Radiology Results: ITS Impressions Abdomen/Pelvis CT 10/02/24 21:51 IMPRESSION: Hepatomegaly and steatosis. Findings suspicious for a colonic mass at the hepatic flexure. Recommend referral for endoscopy. Chest CT 10/05/24 09:28 IMPRESSION: 1. Mild right basilar atelectasis. No suspicious pulmonary nodule or acute cardiopulmonary disease. 2. Diffuse hepatic steatosis. 3. Cholelithiasis. Labs Labs: Laboratory Results - last 24 hr 10/05/24 10/05/24 10/05/24 11:31 16:48 20:58 WBC RBC Hgb Hct MCV MCH MCHC RDW Plt Count MPV Immature Gran % (Auto) Neut % (Auto) Lymph % (Auto) [place] % (Auto) Eos % (Auto) Baso % (Auto) Lymph # (Auto) [place] # (Auto) Eos # (Auto) Baso # (Auto) Abs Immat Gran (auto) Absolute Neuts (auto) Absolute Nucleated RBC Nucleated RBC % % Immature Plt Fraction Sodium Potassium Chloride Carbon Dioxide Anion Gap BUN Creatinine Estim Creat Clear Calc Estimated GFR Glucose POC Capillary Glucose 211 H 200 H 174 H Calcium Total Bilirubin AST ALT Alkaline Phosphatase Total Protein Albumin 10/06/24 10/06/24 06:40 07:42 WBC 7.6 RBC 3.14 L Hgb 9.1 L Hct 30.2 L MCV 96.2 MCH 29.0 MCHC 30.1 L RDW 16.3 H Plt Count 191 MPV 11.6 H Immature Gran % (Auto) 1.7 H Neut % (Auto) 64.0 Lymph % (Auto) 26.1 [place] % (Auto) 6.6 Eos % (Auto) 0.9 Baso % (Auto) 0.7 Lymph # (Auto) 1.99 [place] # (Auto) 0.5 Eos # (Auto) 0.1 Baso # (Auto) 0.1 Abs Immat Gran (auto) 0.13 H Absolute Neuts (auto) 4.9 Absolute Nucleated RBC 0.040 H Nucleated RBC % 0.5 H % Immature Plt Fraction 8.6 Sodium 136 L Potassium 4.1 Chloride 103 Carbon Dioxide 28 Anion Gap 5 BUN 5 L Creatinine 0.70 Estim Creat Clear Calc 186 Estimated GFR > 60 Glucose 171 H POC Capillary Glucose 169 H Calcium 8.4 Total Bilirubin 1.0 AST 54 ALT 32 Alkaline Phosphatase 57 Total Protein 7.0 Albumin 3.9 Quality VTE Prophylaxis VTE prophylaxis: mechanical ordered
--- NOTE | 2024-10-06 10:07 | PM.PNGS ---
Progress Note: A&P Assessment and Plan (1) Mass of hepatic flexure of colon: Code(s): K63.89 - Other specified diseases of intestine Status: Acute Assessment and Plan: Plan to proceed with QUAN right hemicolectomy tomorrow Clear liquids and bowel prep today in preparation for surgery (2) Type 2 diabetes mellitus with hyperglycemia: Code(s): E11.65 - Type 2 diabetes mellitus with hyperglycemia Status: Acute Assessment and Plan: Newly diagnosed type 2 diabetic. Management per Hospitalist (3) Acute blood loss anemia: Code(s): D62 - Acute posthemorrhagic anemia Status: Acute (4) Morbid obesity with BMI of 45.0-49.9, adult: Code(s): E66.01 - Morbid (severe) obesity due to excess calories; Z68.42 - Body mass index [BMI] 45.0-49.9, adult Status: Acute Plan I have discussed the patient's case and plan of care with Dr. Butterfield. Subjective Subjective Date/Time Seen: 10/06/24 10:07 Patient reports: no new complaints, tolerating liquids well and flatus Interval history: Patient is doing well. No changes overnight or complaints. Exam Const: General: comfortable and no acute distress GI: Inspection: non-distended and obesity GI Palp: Yes Soft to palpation, No Tenderness to palpation present (GI), No Guarding due to palpation present (GI) and No Rebound tenderness present Auscultation: normal bowel sounds Objective Data Vital Signs Vital Signs: Vital Signs - 24 hr 10/05/24 12:02 10/05/24 14:00 10/05/24 16:03 Temperature 97.7 F Pulse Rate 76 80 74 Respiratory Rate 18 Blood Pressure 154/82 H Pulse Oximetry 98 Oxygen Delivery 10/05/24 21:45 10/05/24 20:00 10/05/24 20:00 Temperature 97.9 F Pulse Rate 79 Respiratory Rate 18 Blood Pressure 159/90 H Pulse Oximetry 100 98 Oxygen Delivery Room Air Room Air 10/06/24 00:00 10/06/24 04:00 10/06/24 06:00 Temperature 97.6 F Pulse Rate 76 70 84 Respiratory Rate 18 Blood Pressure 141/91 H Pulse Oximetry 99 Oxygen Delivery Intake/Output Intake/Output: Intake & Output 10/03/24 10/04/24 10/05/24 10/06/24 23:59 23:59 23:59 23:59 Intake Total 2079 4594.5 920 790 Balance 2079 4594.5 920 790 Meds/Results Medications: Active Medications Generic Name Dose Route Start Last Admin Trade Name Freq PRN Reason Stop Dose Admin Acetaminophen 650 mg 10/03/24 00:47 Acetaminophen 325 Mg Tablet PO Q4H PRN Mild Pain (1-3) or Fever Albuterol 2 puff 10/03/24 15:08 Albuterol Sulfate (*Sp) Aerosol 1 Puff INHALATION Q4-6H PRN shortness of breath or wheezing Dextrose 12.5 gm 10/03/24 15:11 Dextrose 50% 25 Gm/50 Ml Syringe IV PUSH PRN PRN Hypoglycemia Protocol Erythromycin 1,000 mg 10/06/24 14:00 Erythromycin 250 Mg Tablet PO 10/07/24 00:01 TID@00,14,15 DAVIN Glucagon 1 mg 10/03/24 15:11 Glucagon For Inj 1 Mg Vial IM PRN PRN Hypoglycemia Protocol Glucose 15 gm 10/03/24 15:11 Glucose Oral Gel 15 Gm Of Glucse In 37.5 Gm Tube PO PRN PRN Hypoglycemia Protocol Hydrochlorothiazide 12.5 mg 10/06/24 09:55 Hydrochlorothiazide 12.5 Mg Capsule PO QAM DAVIN Dextrose 1,000 mls @ 100 mls/hr 10/03/24 15:11 Dextrose 5% 1,000 Ml IVPB PRN PRN Hypoglycemia Protocol Lactated Ringer's 1,000 mls @ 80 mls/hr 10/06/24 22:00 Lr - Lactated Ringers Iv IV CONT .[id number] [facility] Cefazolin Sodium 100 mls @ 200 mls/hr 10/07/24 10:00 Ancef 3 Gm/D5w 100 Ml IVPB 10/07/24 10:29 ONCE ONE Metronidazole 500 mg in 100 mls @ 100 mls/hr 10/07/24 10:00 Flagyl 500 Mg/Iso Soln 100 Ml IVPB 10/07/24 10:59 ONCE ONE Insulin Aspart 4 - 8 units 10/04/24 17:00 10/06/24 08:36 Insulin Aspart (*Bkc) 100 Units/Ml SUB-Q Not Given TIDWM [facility] Protocol Lisinopril 20 mg 10/06/24 09:55 Lisinopril 20 Mg Tablet PO QAM DAVIN Neomycin Sulfate 1,000 mg 10/06/24 14:00 Neomycin Sulfate 500 Mg Tab PO 10/07/24 00:01 TID@00,14,15 DAVIN Nicotine 1 patch 10/05/24 11:25 10/06/24 08:40 Nicotine (*Pbkc) 14 Mg Patch TRANSDERM 1 patch DAILY DAVIN Administration Ondansetron HCl 4 mg 10/02/24 22:48 Ondansetron Inj 4 Mg/2 Ml Vial IV PUSH Q4H PRN Nausea Pantoprazole Sodium 40 mg 10/03/24 09:00 10/06/24 08:40 Pantoprazole Sodium Iv 40 Mg Vial IV PUSH 40 mg QAM DAVIN Administration Polyethylene Glycol 238 gm 10/06/24 16:00 Polyethylene Glycol 3350 238 Gm Bottle PO 10/06/24 16:01 ONCE ONE Radiology Results: ITS Impressions Abdomen/Pelvis CT 10/02/24 21:51 IMPRESSION: Hepatomegaly and steatosis. Findings suspicious for a colonic mass at the hepatic flexure. Recommend referral for endoscopy. Chest CT 10/05/24 09:28 IMPRESSION: 1. Mild right basilar atelectasis. No suspicious pulmonary nodule or acute cardiopulmonary disease. 2. Diffuse hepatic steatosis. 3. Cholelithiasis. Labs Labs: Laboratory Results - last 24 hr 10/05/24 10/05/24 10/05/24 11:31 16:48 20:58 WBC RBC Hgb Hct MCV MCH MCHC RDW Plt Count MPV Immature Gran % (Auto) Neut % (Auto) Lymph % (Auto) [place] % (Auto) Eos % (Auto) Baso % (Auto) Lymph # (Auto) [place] # (Auto) Eos # (Auto) Baso # (Auto) Abs Immat Gran (auto) Absolute Neuts (auto) Absolute Nucleated RBC Nucleated RBC % % Immature Plt Fraction Sodium Potassium Chloride Carbon Dioxide Anion Gap BUN Creatinine Estim Creat Clear Calc Estimated GFR Glucose POC Capillary Glucose 211 H 200 H 174 H Calcium Total Bilirubin AST ALT Alkaline Phosphatase Total Protein Albumin 10/06/24 10/06/24 06:40 07:42 WBC 7.6 RBC 3.14 L Hgb 9.1 L Hct 30.2 L MCV 96.2 MCH 29.0 MCHC 30.1 L RDW 16.3 H Plt Count 191 MPV 11.6 H Immature Gran % (Auto) 1.7 H Neut % (Auto) 64.0 Lymph % (Auto) 26.1 [place] % (Auto) 6.6 Eos % (Auto) 0.9 Baso % (Auto) 0.7 Lymph # (Auto) 1.99 [place] # (Auto) 0.5 Eos # (Auto) 0.1 Baso # (Auto) 0.1 Abs Immat Gran (auto) 0.13 H Absolute Neuts (auto) 4.9 Absolute Nucleated RBC 0.040 H Nucleated RBC % 0.5 H % Immature Plt Fraction 8.6 Sodium 136 L Potassium 4.1 Chloride 103 Carbon Dioxide 28 Anion Gap 5 BUN 5 L Creatinine 0.70 Estim Creat Clear Calc 186 Estimated GFR > 60 Glucose 171 H POC Capillary Glucose 169 H Calcium 8.4 Total Bilirubin 1.0 AST 54 ALT 32 Alkaline Phosphatase 57 Total Protein 7.0 Albumin 3.9
[2024-10-06] MEDS: hydroCHLOROthiazide 12.5 MG CAPSULE PO (11:07)
[2024-10-06] MEDS: lisinopriL 20 MG TABLET PO (11:07)
[2024-10-06 11:38] LABS: Glucose Point of Care 270 mg/dl (65-105)
[2024-10-06] MEDS: INSULIN ASPART (*BKC) 100 UNITS/ML SUB-Q (11:56)
[2024-10-06 14:00] VITALS: BP 160/71; PULSE 81; RESP 18; TEMP 36.5; O2SAT 99
[2024-10-06] MEDS: NEOMYCIN SULFATE 500 MG TAB 1000 MG PO ×2 (15:00→16:00)
[2024-10-06] MEDS: ERYTHROMYCIN 250 MG TABLET 1000 MG PO ×2 (15:01→16:00)
[2024-10-06] MEDS: polyethylene glycoL 3350 238 GM BOTTLE PO (16:37)
--- NOTE | 2024-10-06 16:45 | P.PNGI_ITS ---
Progress Note: A&P Assessment and Plan (1) Mass of hepatic flexure of colon: Code(s): K63.89 - Other specified diseases of intestine Status: Acute Assessment and Plan: surgery planning intervention tomorrow bx reviewed, TVA no obvious cancer but large mass (2) Acute blood loss anemia: Code(s): D62 - Acute posthemorrhagic anemia Status: Acute Assessment and Plan: s/p blood transfusion probably from large colon mass no more active bleeding (3) Type 2 diabetes mellitus with hyperglycemia: Code(s): E11.65 - Type 2 diabetes mellitus with hyperglycemia Status: Acute (4) Hypertension: Code(s): I10 - Essential (primary) hypertension Status: Acute (5) GI bleed: Qualifiers: GI bleed type/associated pathology: unspecified gastrointestinal hemorrhage type Qualified Code(s): K92.2 - Gastrointestinal hemorrhage, unspecified Code(s): K92.2 - Gastrointestinal hemorrhage, unspecified Status: Acute (6) Morbid obesity with BMI of 45.0-49.9, adult: Code(s): E66.01 - Morbid (severe) obesity due to excess calories; Z68.42 - Body mass index [BMI] 45.0-49.9, adult Status: Acute Subjective Date/time seen: 10/06/24 16:45 Interval history: no new issues Review of Systems Review of Systems: All systems reviewed & are unremarkable except as noted in HPI and below Exam Const: General: comfortable and no acute distress Other: obese HENMT: Face/Nose/Sinus: Normal nares present Eyes: General: appearance normal, both eyes and all related structures Neck: Neck: no JVD Resp: Auscultation: clear to auscultation bilaterally Cardio: Rate: regular rate Rhythm: regular rhythm GI: Inspection: non-distended GI Palp: Yes Soft to palpation Skin: General skin exam: normal color Neuro: General: gait normal Speech: normal speech Extrem: General: normal to inspection Psych: Mental Status: mental status grossly normal Objective Data Vital Signs Vital Signs: Vital Signs - 24 hr 10/05/24 21:45 10/05/24 20:00 10/05/24 20:00 Temperature 97.9 F Pulse Rate 79 Respiratory Rate 18 Blood Pressure 159/90 H Pulse Oximetry 100 98 Oxygen Delivery Room Air Room Air 10/06/24 00:00 10/06/24 04:00 10/06/24 06:00 Temperature 97.6 F Pulse Rate 76 70 84 Respiratory Rate 18 Blood Pressure 141/91 H Pulse Oximetry 99 Oxygen Delivery 10/06/24 08:40 10/06/24 08:00 10/06/24 14:00 Temperature 97.7 F Pulse Rate 81 81 Respiratory Rate 18 Blood Pressure 160/71 H Pulse Oximetry 99 Oxygen Delivery Room Air Intake/Output Intake/Output: Intake & Output 10/03/24 10/04/24 10/05/24 10/06/24 23:59 23:59 23:59 23:59 Intake Total 2079 4594.5 920 790 Balance 2079 4594.5 920 790 Meds/Results Medications: Active Medications Generic Name Dose Route Start Last Admin Trade Name Freq PRN Reason Stop Dose Admin Acetaminophen 650 mg 10/03/24 00:47 Acetaminophen 325 Mg Tablet PO Q4H PRN Mild Pain (1-3) or Fever Albuterol 2 puff 10/03/24 15:08 Albuterol Sulfate (*Sp) Aerosol 1 Puff INHALATION Q4-6H PRN shortness of breath or wheezing Dextrose 12.5 gm 10/03/24 15:11 Dextrose 50% 25 Gm/50 Ml Syringe IV PUSH PRN PRN Hypoglycemia Protocol Erythromycin 1,000 mg 10/06/24 14:00 10/06/24 16:00 Erythromycin 250 Mg Tablet PO 10/07/24 00:01 1,000 mg TID@00,14,15 DAVIN Administration Glucagon 1 mg 10/03/24 15:11 Glucagon For Inj 1 Mg Vial IM PRN PRN Hypoglycemia Protocol Glucose 15 gm 10/03/24 15:11 Glucose Oral Gel 15 Gm Of Glucse In 37.5 Gm Tube PO PRN PRN Hypoglycemia Protocol Hydrochlorothiazide 12.5 mg 10/06/24 09:55 10/06/24 11:07 Hydrochlorothiazide 12.5 Mg Capsule PO 12.5 mg QAM DAVIN Administration Dextrose 1,000 mls @ 100 mls/hr 10/03/24 15:11 Dextrose 5% 1,000 Ml IVPB PRN PRN Hypoglycemia Protocol Lactated Ringer's 1,000 mls @ 80 mls/hr 10/06/24 22:00 Lr - Lactated Ringers Iv IV CONT .[id number] DAVIN Cefazolin Sodium 100 mls @ 200 mls/hr 10/07/24 10:00 Ancef 3 Gm/D5w 100 Ml IVPB 10/07/24 10:29 ONCE ONE Metronidazole 500 mg in 100 mls @ 100 mls/hr 10/07/24 10:00 Flagyl 500 Mg/Iso Soln 100 Ml IVPB 10/07/24 10:59 ONCE ONE Insulin Aspart 4 - 8 units 10/04/24 17:00 10/06/24 16:40 Insulin Aspart (*Bkc) 100 Units/Ml SUB-Q Not Given [facility] Protocol Lisinopril 20 mg 10/06/24 09:55 10/06/24 11:07 Lisinopril 20 Mg Tablet PO 20 mg QAM DAVIN Administration Neomycin Sulfate 1,000 mg 10/06/24 14:00 10/06/24 16:00 Neomycin Sulfate 500 Mg Tab PO 10/07/24 00:01 1,000 mg TID@00,14,15 DAVIN Administration Nicotine 1 patch 10/05/24 11:25 10/06/24 08:40 Nicotine (*Pbkc) 14 Mg Patch TRANSDERM 1 patch DAILY DAVIN Administration Ondansetron HCl 4 mg 10/02/24 22:48 Ondansetron Inj 4 Mg/2 Ml Vial IV PUSH Q4H PRN Nausea Pantoprazole Sodium 40 mg 10/03/24 09:00 10/06/24 08:40 Pantoprazole Sodium Iv 40 Mg Vial IV PUSH 40 mg QAM DAVIN Administration Radiology Results: ITS Impressions Abdomen/Pelvis CT 10/02/24 21:51 IMPRESSION: Hepatomegaly and steatosis. Findings suspicious for a colonic mass at the hepatic flexure. Recommend referral for endoscopy. Chest CT 10/05/24 09:28 IMPRESSION: 1. Mild right basilar atelectasis. No suspicious pulmonary nodule or acute cardiopulmonary disease. 2. Diffuse hepatic steatosis. 3. Cholelithiasis. Labs Labs: Laboratory Results - last 24 hr 10/05/24 10/05/24 10/06/24 16:48 20:58 06:40 WBC 7.6 RBC 3.14 L Hgb 9.1 L Hct 30.2 L MCV 96.2 MCH 29.0 MCHC 30.1 L RDW 16.3 H Plt Count 191 MPV 11.6 H Immature Gran % (Auto) 1.7 H Neut % (Auto) 64.0 Lymph % (Auto) 26.1 [place] % (Auto) 6.6 Eos % (Auto) 0.9 Baso % (Auto) 0.7 Lymph # (Auto) 1.99 [place] # (Auto) 0.5 Eos # (Auto) 0.1 Baso # (Auto) 0.1 Abs Immat Gran (auto) 0.13 H Absolute Neuts (auto) 4.9 Absolute Nucleated RBC 0.040 H Nucleated RBC % 0.5 H % Immature Plt Fraction 8.6 Sodium 136 L Potassium 4.1 Chloride 103 Carbon Dioxide 28 Anion Gap 5 BUN 5 L Creatinine 0.70 Estim Creat Clear Calc 186 Estimated GFR > 60 Glucose 171 H POC Capillary Glucose 200 H 174 H Calcium 8.4 Total Bilirubin 1.0 AST 54 ALT 32 Alkaline Phosphatase 57 Total Protein 7.0 Albumin 3.9 10/06/24 10/06/24 07:42 11:32 WBC RBC Hgb Hct MCV MCH MCHC RDW Plt Count MPV Immature Gran % (Auto) Neut % (Auto) Lymph % (Auto) [place] % (Auto) Eos % (Auto) Baso % (Auto) Lymph # (Auto) [place] # (Auto) Eos # (Auto) Baso # (Auto) Abs Immat Gran (auto) Absolute Neuts (auto) Absolute Nucleated RBC Nucleated RBC % % Immature Plt Fraction Sodium Potassium Chloride Carbon Dioxide Anion Gap BUN Creatinine Estim Creat Clear Calc Estimated GFR Glucose POC Capillary Glucose 169 H 270 H Calcium Total Bilirubin AST ALT Alkaline Phosphatase Total Protein Albumin
[2024-10-06 18:20] LABS: Glucose Point of Care 159 mg/dl (65-105)
[2024-10-06 20:25] VITALS: BP 150/88; PULSE 81; RESP 18; TEMP 36.6; O2SAT 100
[2024-10-06 22:07] LABS: Glucose Point of Care 226 mg/dl (65-105)
[2024-10-06] MEDS: LACTATED RINGERS 1,000 ML 80 ML IV CONT (23:19)
[2024-10-07] VITALS (14 sets, daily range): BP systolic 112–171; BP diastolic 48–90; PULSE 70–85; RESP 16–20; TEMP 34.9–36.6; O2SAT 95–100
[2024-10-07] MEDS: NEOMYCIN SULFATE 500 MG TAB 1000 MG PO (00:19)
[2024-10-07] MEDS: ERYTHROMYCIN 250 MG TABLET 1000 MG PO (00:20)
[2024-10-07 06:09] LABS: Basophils Percent Auto 0.5 % (0.2-1.2); Eosinophils Absolute Auto 0.1 K/mm3 (0-0.3); Eosinophils Percent Auto 1.1 % (0-4.4); Hematocrit 28.3 % (42.0-52.0); Hemoglobin 8.9 g/dL (14.0-18.0); Immature Granulocyte Percent A 1.6 % (0-0.5); Lymphocytes Absolute Auto 1.35 K/mm3 (0.9-3.2); Lymphocytes Percent Auto 21.6 % (18.3-44.2); Mean Corpuscular HGB Conc 31.4 g/dl (32-36); Mean Corpuscular Hemoglobin 29.2 pg (26-34); Mean Corpuscular Volume 92.8 fl (80-100); Mean Platelet Volume 10.6 fl (7.4-10.4); Monocytes Absolute Auto 0.5 K/mm3 (0.1-0.6); Monocytes Percent Auto 7.3 % (2.6-8.5); Neutrophils Absolute Auto 4.3 K/mm3 (1.3-6.7); Neutrophils Percent Auto 67.9 % (45.5-73.1); Nucleated Red Blood Cells Perc 0.3 % (0.0-0.2); Platelet Count Result 218 k/mm3 (150-375); Red Blood Count 3.05 M/mm3 (4.6-6.20); Red Cell Distribution Width 15.9 % (11.5-14.5); White Blood Count 6.3 K/mm3 (4.5-10.0)
[2024-10-07 06:26] LABS: Alanine Aminotransferase 36 U/L (6-50); Albumin Level 3.8 g/dL (3.5-5.1); Alkaline Phosphatase 64 U/L (38-126); Anion Gap 3 mmol/L (4-12); Aspartate Amino Transferase 49 U/L (17-59); Blood Urea Nitrogen 4 mg/dL (9-20); Calcium 8.6 mg/dL (8.4-10.2); Carbon Dioxide 32 mmol/L (22-30); Chloride 101 mmol/L (98-107); Estimated CRCL calculation 165 ml/min; Estimated Glomerular Filt Rate > 60; Glucose 197 mg/dL (65-110); Potassium 3.6 mmol/L (3.4-5.0); Sodium 136 mmol/L (137-145)
[2024-10-07 07:46] LABS: Glucose Point of Care 197 mg/dl (65-105)
[2024-10-07] MEDS: PANTOPRAZOLE SODIUM IV 40 MG VIAL IV PUSH (08:11)
--- NOTE | 2024-10-07 08:42 | ECG_ITS ---
Test Date: 2024-10-07 09:07:39 Measurements Intervals [place] Rate: 68 P: 27 ME: 156 QRS: 23 QRSD: 97 T: 22 QT: 404 QTc: 432 Interpretive Statements SINUS RHYTHM No previous ECG available for comparison Electronically Signed On 10-07-2024 12:49:46 DUPLICATING MACHINE SERVICER by Luis Carlos Burnette M.D.
--- NOTE | 2024-10-07 09:23 | P.PNIM_ITS ---
Progress Note: A&P Assessment and Plan (1) GI bleed: Qualifiers: GI bleed type/associated pathology: unspecified gastrointestinal hemorrhage type Qualified Code(s): K92.2 - Gastrointestinal hemorrhage, unspecified Code(s): K92.2 - Gastrointestinal hemorrhage, unspecified Status: Acute Assessment and Plan: Colonoscopy completed, multiple polyps removed and 40 mm Friable mass at hepatic flexure Surgery consulted possible surgery /thursday The patient continued to have hematochezia and underwent colonoscopy today. A malignant-appearing mass in the hepatic flexure was identified and biopsied. The patient has no abdominal pain. He does have an umbilical hernia on exam. This does not appear to cause him any symptoms at this time and he has known about it for a long time. He does remain at risk for recurrent bleeding with this mass and would benefit more urgent surgical intervention. I have discussed proceeding with hand assisted laparoscopic extended right hemicolectomy. Patient had already eaten a solid meal after the colonoscopy by the time we were consulted, therefore he will have to go through another bowel prep prior to surgery. Will plan to check a CEA level and CT chest tomorrow. Will then work on arranging surgery in the coming days. 10/06 surgery for thursday- NPO at midnight. no more bleeding reports. H/H stable- 9.1/30.2 10/07 stable (2) Mass of hepatic flexure of colon: Code(s): K63.89 - Other specified diseases of intestine Status: Acute Assessment and Plan: QUAN right hemicolectomy today, 10/07 (3) Acute blood loss anemia: Code(s): D62 - Acute posthemorrhagic anemia Status: Acute Assessment and Plan: reviewed and stable today (4) Hyponatremia: Code(s): E87.1 - Hypo-osmolality and hyponatremia Status: Acute Assessment and Plan: Stable at 133 (5) Hypertension: Code(s): I10 - Essential (primary) hypertension Status: Acute Assessment and Plan: BP had been elevated- will resume home lisinopril/hctz (6) Type 2 diabetes mellitus with hyperglycemia: Code(s): E11.65 - Type 2 diabetes mellitus with hyperglycemia Status: Acute Assessment and Plan: hemoglobin A1c 12 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 QUAN right hemicolectomy today. Review of Systems Review of Systems: All systems reviewed & are unremarkable except as noted in HPI and below Constitutional: Constitutional: Denies body ache(s), Denies difficulty sleeping, Reports fatigue, Denies headache(s), Denies lethargy, Denies night sweats and Denies weakness Eyes: Eyes: Reports no additional eye complaints and Reports blurry vision ENT: Reports Normal hearing present, Reports dysphagia, Denies vertigo, Denies headache(s), Reports epistaxis, Reports nasal congestion and Denies neck pain Cardiovascular: Cardiovascular: Denies pedal edema, Denies leg edema, Denies lightheadedness, Denies palpitations, Denies dyspnea and Denies dyspnea on exertion Respiratory: Respiratory: Denies hemoptysis, Denies dyspnea and Denies dyspnea on exertion Gastrointestinal: Gastrointestinal: Reports hematochezia, Denies constipation, Reports dysphagia, Denies heartburn, Denies diarrhea and Denies nausea Genitourinary: Genitourinary: Denies flank pain, Denies urinary frequency, Denies urinary hesitancy, Denies urinary incontinence and Denies urinary urgency Musculoskeletal: Musculoskeletal: Denies abnormal gait, Denies back pain, Denies myalgias, Denies arthralgias, Denies joint swelling and Denies neck pain Integumentary/Breasts: Skin/Breast: Reports dry skin Neurologic: Denies system reviewed and no additional complaints, except as documented, Reports Normal hearing present, Denies Abnormal speech present, Denies abnormal gait, Denies behavioral changes, Denies confusion, Denies vertigo, Denies headache(s) and Denies weakness Psychiatric: Psychiatric: Reports anxiety, Denies behavioral changes and Denies confusion Endocrine: Endocrine: Reports fatigue and Denies palpitations Exam Narrative: GENERAL: Well-appearing, well-nourished, and in no acute distress. HEAD: Normocephalic, atraumatic. ENT:? Mucous membranes moist. CHEST: Clear to auscultation.? No respiratory distress. HEART: Regular rate and rhythm. ? Normal peripheral pulses. ABDOMEN: Soft, nontender, nondistended. EXTREMITIES: Normal range of motion. No peripheral edema. SKIN: Warm dry normal color NEURO: Alert and oriented x3. PSYCH: Normal mood and affect Const: General: no acute distress; No in distress, confusion or uncomfortable Orientation/consciousness: No confusion HENMT: Ears: TM's abnormal bilaterally Mouth: No moist mucous membranes, No dry mucous membranes and No Abnormal oral and palatal mucosa present Eyes: General: appearance abnormal, both eyes Sclera: sclerae normal Pupils: Equal, round and reactive pupils present EOM: EOM not intact bilaterally Neck: Neck: supple Thyroid: thyroid normal Lymphatic: lymphadenopathy Resp: Auscultation: not clear to auscultation bilaterally, no crackles, no rales, no rhonchi and no wheezes Cardio: Rate: regular rate and not bradycardic Rhythm: regular rhythm GI: Auscultation: normal bowel sounds Skin: General skin exam: normal color Neuro: General: No confusion Cranial nerves: Yes Equal, round and reactive pupils present and Yes Normal hearing present Speech: No Abnormal speech present Motor exam (neuro): 5/5 motor strength present throughout, Normal motor muscle tone present throughout, strength normal and abnormal movements noted Sensory Exam: normal sensation Extrem: General: normal to inspection, no edema and no pedal edema Psych: Mental Status: mental status grossly normal Objective Data Vital Signs Vital Signs: Vital Signs - 24 hr 10/06/24 14:00 10/06/24 20:25 10/07/24 04:10 Temperature 97.7 F 97.8 F 96.2 F L Pulse Rate 81 81 80 Respiratory Rate 18 18 18 Blood Pressure 160/71 H 150/88 H 112/60 Pulse Oximetry 99 100 100 Oxygen Delivery 10/07/24 08:10 Temperature Pulse Rate Respiratory Rate Blood Pressure Pulse Oximetry Oxygen Delivery Room Air Intake/Output Intake/Output: Intake & Output 10/04/24 10/05/24 10/06/24 10/07/24 23:59 23:59 23:59 23:59 Intake Total 4594.5 920 3030 2073 Balance 4594.5 920 3030 3 Meds/Results Medications: Active Medications Generic Name Dose Route Start Last Admin Trade Name Freq PRN Reason Stop Dose Admin Acetaminophen 650 mg 10/03/24 00:47 Acetaminophen 325 Mg Tablet PO Q4H PRN Mild Pain (1-3) or Fever Albuterol 2 puff 10/03/24 15:08 Albuterol Sulfate (*Sp) Aerosol 1 Puff INHALATION Q4-6H PRN shortness of breath or wheezing Dextrose 12.5 gm 10/03/24 15:11 Dextrose 50% 25 Gm/50 Ml Syringe IV PUSH PRN PRN Hypoglycemia Protocol Glucagon 1 mg 10/03/24 15:11 Glucagon For Inj 1 Mg Vial IM PRN PRN Hypoglycemia Protocol Glucose 15 gm 10/03/24 15:11 Glucose Oral Gel 15 Gm Of Glucse In 37.5 Gm Tube PO PRN PRN Hypoglycemia Protocol Hydrochlorothiazide 12.5 mg 10/06/24 09:55 10/07/24 07:58 Hydrochlorothiazide 12.5 Mg Capsule PO Not Given QAM DAVIN Dextrose 1,000 mls @ 100 mls/hr 10/03/24 15:11 Dextrose 5% 1,000 Ml IVPB PRN PRN Hypoglycemia Protocol Lactated Ringer's 1,000 mls @ 80 mls/hr 10/06/24 22:00 10/06/24 23:19 Lr - Lactated Ringers Iv IV CONT 80 mls/hr .[id number] DAVIN Administration Cefazolin Sodium 100 mls @ 200 mls/hr 10/07/24 10:00 Ancef 3 Gm/D5w 100 Ml IVPB 10/07/24 10:29 ONCE ONE Metronidazole 500 mg in 100 mls @ 100 mls/hr 10/07/24 10:00 Flagyl 500 Mg/Iso Soln 100 Ml IVPB 10/07/24 10:59 ONCE ONE Insulin Aspart 4 - 8 units 10/04/24 17:00 10/07/24 07:58 Insulin Aspart (*Bkc) 100 Units/Ml SUB-Q Not Given TIDWM [facility] Protocol Lisinopril 20 mg 10/06/24 09:55 10/07/24 07:58 Lisinopril 20 Mg Tablet PO Not Given QAM DAVIN Nicotine 1 patch 10/05/24 11:25 10/07/24 07:58 Nicotine (*Pbkc) 14 Mg Patch TRANSDERM Not Given DAILY DAVIN Ondansetron HCl 4 mg 10/02/24 22:48 Ondansetron Inj 4 Mg/2 Ml Vial IV PUSH Q4H PRN Nausea Pantoprazole Sodium 40 mg 10/03/24 09:00 10/07/24 08:11 Pantoprazole Sodium Iv 40 Mg Vial IV PUSH 40 mg QAM DAVIN Administration Radiology Results: ITS Impressions Abdomen/Pelvis CT 12/01/24 21:51 IMPRESSION: Hepatomegaly and steatosis. Findings suspicious for a colonic mass at the hepatic flexure. Recommend referral for endoscopy. Chest CT 10/05/24 09:28 IMPRESSION: 1. Mild right basilar atelectasis. No suspicious pulmonary nodule or acute cardiopulmonary disease. 2. Diffuse hepatic steatosis. 3. Cholelithiasis. Labs Labs: Laboratory Results - last 24 hr 10/06/24 10/06/24 10/06/24 11:32 16:38 20:29 WBC RBC Hgb Hct MCV MCH MCHC RDW Plt Count MPV Immature Gran % (Auto) Neut % (Auto) Lymph % (Auto) [place] % (Auto) Eos % (Auto) Baso % (Auto) Lymph # (Auto) [place] # (Auto) Eos # (Auto) Baso # (Auto) Abs Immat Gran (auto) Absolute Neuts (auto) Absolute Nucleated RBC Nucleated RBC % Sodium Potassium Chloride Carbon Dioxide Anion Gap BUN Creatinine Estim Creat Clear Calc Estimated GFR Glucose POC Capillary Glucose 270 H 159 H 226 H Calcium Total Bilirubin AST ALT Alkaline Phosphatase Total Protein Albumin 10/07/24 10/07/24 05:47 07:33 WBC 6.3 RBC 3.05 L Hgb 8.9 L Hct 28.3 L MCV 92.8 MCH 29.2 MCHC 31.4 L RDW 15.9 H Plt Count 218 MPV 10.6 H Immature Gran % (Auto) 1.6 H Neut % (Auto) 67.9 Lymph % (Auto) 21.6 [place] % (Auto) 7.3 Eos % (Auto) 1.1 Baso % (Auto) 0.5 Lymph # (Auto) 1.35 [place] # (Auto) 0.5 Eos # (Auto) 0.1 Baso # (Auto) 0.0 Abs Immat Gran (auto) 0.10 H Absolute Neuts (auto) 4.3 Absolute Nucleated RBC 0.020 H Nucleated RBC % 0.3 H Sodium 136 L Potassium 3.6 Chloride 101 Carbon Dioxide 32 H Anion Gap 3 L BUN 4 L Creatinine 0.80 Estim Creat Clear Calc 165 Estimated GFR > 60 Glucose 197 H POC Capillary Glucose 197 H Calcium 8.6 Total Bilirubin 1.0 AST 49 ALT 36 Alkaline Phosphatase 64 Total Protein 6.0 L Albumin 3.8 Quality VTE Prophylaxis VTE prophylaxis: mechanical ordered
--- NOTE | 2024-10-07 10:10 | PC.NURSE ---
Patient off floor to pre-op via stretcher. Report given to Yadi LOYD.
[2024-10-07] MEDS: LACTATED RINGERS 1,000 ML 30 ML IV CONT ×2 (10:25→13:59)
--- NOTE | 2024-10-07 10:49 | P.PNAN_ITS ---
Anes - Eval Final PreProcedure Day of Procedure 10/07/24 10:49 Patient weight: morbidly obese Heart: regular rate and rhythm Lungs: clear to auscultation Airway: Mallampati scale Neurological: alert and oriented Last oral intake: >/= 8 hours ASA classification: III Emergent: no Anesthetic plan: proceed Anesthesia type and monitoring: general ETT and standard monitoring Results Review: All pre-operative results and documents have been reviewed as part of the pre- operative evaluation. Notes reviewed. Pt now for surgery for colon mass s/p transfusion 2 U PRBCs. Full discussion w pt regarding additional lines, poss blood transfusion, poss post op mech vent and ICU admission. He understands and wishes to proceed. T and S updated. Informed Consent: The patient's anesthetic plan and its attendant risks and benefits were discussed with the patient/family/POA. Questions were solicited and answers provided to the satisfaction of the patient/family/POA.
--- NOTE | 2024-10-07 10:50 | WPDHPUPDATE1 ---
History and Physical Update Update Date/Time: 10/07/24 10:50 History and Physical has been reviewed, including an updated exam of the patient. There are NO changes in the patient's condition. Risks, benefits, and alternatives have been discussed and questions answered. Patient agrees to proceed with procedure.
[2024-10-07 11:03] LABS: Glucose Point of Care 166 mg/dl (65-105)
[2024-10-07] MEDS: ceFAZolin 3 GM/D5W 100 ML 100 ML IVPB (11:18)
[2024-10-07] MEDS: BUPIVACAINE/EPINEPHRINE 0.5% 50 ML VIAL 30 ML INFILTRATE (12:39)
--- NOTE | 2024-10-07 14:02 | P.OP_ITS ---
Procedure Note - Detailed Date of Procedure 10/07/24 Pre-op Diagnosis Hepatic flexure colon tubulovillous adenoma Post-op Diagnosis Same Procedure Performed Hand assisted laparoscopic extended right hemicolectomy with ileocolic anastomosis Surgeon Cody Butterfield, DO Anesthesia General and Local (0.5% bupivacaine with epi) Indications This is a 39-year-old man who presented to the emergency department several days ago with hematochezia. This had happened acutely and he denied any prior symptoms leading up to this. He was admitted to the hospital for further treatment. He did become anemic enough that he required 2 units of packed red blood cell transfusion. He underwent colonoscopy on 10/04/2024 and this showed evidence of a large malignant-appearing mass in the hepatic flexure. Biopsies were performed and this was tattooed. 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 CT of the chest, abdomen, and pelvis showed no other signs of malignancy. Due to the risk of recurrent bleeding, decision was made to keep patient in the hospital and proceed with surgical resection. Decision was made to proceed with hand assisted laparoscopic extended right hemicolectomy, possible open. Findings Hand assisted laparoscopic extended right hemicolectomy was performed. The tattooed region was identified the hepatic flexure the proximal transverse colon. No other signs of metastatic spread were identified. A high ligation of the ileocolic and middle colic vessels were performed. As I was dissecting out the middle colic artery, I did encounter some bleeding from a branch vessel just anterior to the pancreas. Was able to control the bleeding with LigaSure bipolar cautery and Surgiflo. The resection margin was extended all the way to the midtransverse colon just to the left of the falciform ligament. Indocyanine green was infused to assess for perfusion at the proximal and distal resection margins. I also assessed the area where the bleeding had occurred and no further bleeding was identified. There appeared to be adequate perfusion to the distal and proximal resection margins. An extended right hemicolectomy was performed and a [id number] ileocolic anastomosis was performed. The specimen was sent to the lab for pathology. Description of Procedure Procedure as well as risks benefits and alternatives were explained to the patient. Written consent was obtained and placed in chart prior to procedure. Patient was brought back to surgical suite. He was placed supine on operating table. Time-out was done to confirm patient procedure. He was then intubated by the anesthesia department. His abdomen was prepped and draped in sterile fashion using chlorhexidine prep. A 7 centimeter vertical incision was made just superior to the umbilicus using a 15 blade scalpel. Electrocautery was used for hemostasis and for dissection down through Cait's fascia. The linea alba was identified, and incised using electrocautery. Two Josefina clamps were used to lift the fascia anteriorly, and the peritoneum was then entered using electrocautery. The abdomen was inspected and no acute abnormalities were noted. The wound protector was placed at this incision, and the GelPort was applied with a 5 millimeter port placed through it. Carbon dioxide insufflation was used to create a pneumoperitoneum. The camera was inserted and the abdominal cavity was inspected. The tattooed region was identified on the proximal transverse colon at the hepatic flexure, and no other abnormalities were noted. The patient was placed in Trendelenburg position and rotated sligh tly to the left. A 5 millimeter incision was made in the lower midline and a 5 millimeter trocar was inserted under direct visualization. Another 5 millimeter incision was made in the left lower quadrant, and a 5 millimeter trocar was inserted under direct visualization. A transversus abdominis plane block with 0.5% bupivacaine with epinephrine was performed under laparoscopic visualization bilaterally. After carefully inspecting the abdominal cavity, I began my dissection from a medial to lateral direction along the ileocolic pedicle. The cecum was tented anteriorly and laterally and this allowed me to visualize the ileocolic pedicle. The medial side and inferior side of the peritoneum was scored using hook electrocautery and the retroperitoneal plane was entered. Careful dissection was performed using hook electrocautery in this relatively avascular plane. The duodenum was identified and swept posteriorly. I then continued to dissect proximally along the ileocolic pedicle. I isolated the ileocolic vein and artery individually and performed a high ligation using bipolar cautery. Hemostasis appeared adequate. I then continued the medial to lateral dissection maintaining this avascular plane. I also dissected along the transverse colon to the right side all the way to the level of the hepatic flexure. The terminal ileum and appendix were then retracted medially and the lateral peritoneal attachments were taken down using hook electrocautery. The root of the mesentery was then carefully taken down proximally to allow adequate mobilization of the small bowel for our anastomosis. The lateral peritoneal attachments of the ascending colon were then taken down using hook electrocautery. The hepatic flexure was taken down using ligasure bipolar cautery. I then continued to take down the hepatocolic ligament and gastrohepatic ligament using LigaSure bipolar cautery until I was able to mobilize the transverse colon all the way back to about the mid transverse colon. I then tented the transverse colon anteriorly and carefully isolated the middle colic vessels. The vessels were carefully isolated using LigaSure bipolar cautery and then the middle colic vessels were ligated and transected using LigaSure bipolar cautery. As I was doing this there was a branch vessel just anterior to the pancreas that began bleeding. I held pressure over the bleeding vessel initially to gain control of the bleeding. I then inspected the region and used LigaSure bipolar cautery to help with hemostasis. I then also sprayed Surgiflo over this region and applied a lap pad and held pressure for longer. I then inspected the area and no further bleeding was identified. Once this was completed I gained adequate mobilization of the entire ascending and proximal transverse colon to exteriorize and perform our resection and anastomosis. Indocyanine green was infused intravenously and the near infrared fluorescence imaging was utilized to assess perfusion. There appeared to be adequate perfusion at the distal and proximal transection points. I also inspected the area where the bleeding had previously come from and there appeared to be no active extravasation. The patient was flattened out in bed, and the cecum was grasped and delivered through the wound protector. The pneumoperitoneum was released. I carefully delivered the entire ascending and proximal transverse colon out through the hand port incision. The specimen was inspected and appeared to have adequate mobilization beyond the tattoo to perform our resection. The transverse colon was cleared of the epiploic appendages and omentum and a RAQUEL 75 millimeter blue load stapler was advanced across the transverse colon at this point and clamped and fired. The remaining mesocolon attachments were taken down using LigaSure bipolar cautery. Hemostasis appeared adequate. A window was then created in the mesentery at the terminal ileum, and a RAQUEL 75 millimeter blue load stapler was advanced across the terminal ileum at this point and clamped and fired. The remaining mesentery attachments were then taken down using bipolar cautery. This freed up the specimen completely, and it was then removed and sent to the lab for pathology. The 2 ends of the bowel were inspected and appeared healthy and viable. They came together in a [id number] fashion without any tension. Enterotomies were then made at the anti mesenteric border using electrocautery. The RAQUEL 75 millimeter blue load stapler was then advanced through each enterotomy and the 2 limbs of the bowel were clamped together in a [id number] fashion and then the stapler was fired to create our anastomosis. The stapler was removed and the anastomosis was inspected. It appeared healthy and viable. The enterotomy was then closed using a TLC 60 millimeter blue load stapler. The apex of the staple line was then reinforced using 3 0 silk seromuscular imbricating sutures. The anastomosis was inspected and appeared healthy and viable and appeared widely patent. The anastomosis was then released back down into the abdominal cavity. One final inspection was made around the abdominal cavity, and no other abnormalities were noted. Hemostasis appeared adequate. The ports and wound protector were then removed. The sterile closing tray was used for abdomen closure, along with sterile gown and gloves. The fascia of the hand port incision was reapproximated using 0 PDS running suture starting at each end and meeting in the middle. The deep dermis was approximated using 3 0 Vicryl inverted interrupted sutures. The skin of all the incisions was approximated using 4-0 Monocryl subcuticular suture. Exofin glue was applied on top. The patient was awakened from anesthesia, extubated, and transferred to recovery. Estimated Blood Loss 250 Urine Output 200 Pathology Yes (Right colon) Complications No immediate complications Condition Stable Disposition Floor [facility] Billing Surgery - Charge Forward: Surgery Billing
--- NOTE | 2024-10-07 15:05 | PC.NURSE ---
Patient returned to room from PACU. Report received from Safia LOYD. No patient complaints at this time.
[2024-10-07] MEDS: LACTATED RINGERS 1,000 ML 125 ML IV CONT (15:10)
[2024-10-07 16:35] LABS: Glucose Point of Care 254 mg/dl (65-105)
[2024-10-07] MEDS: INSULIN ASPART (*BKC) 100 UNITS/ML SUB-Q (17:02)
[2024-10-07] MEDS: ACETAMINOPHEN 500 MG TABLET 1000 MG PO ×2 (17:03→22:42)
[2024-10-07 18:07] LABS: Glucose Point of Care 292 mg/dl (65-105)
[2024-10-07 20:50] LABS: Glucose Point of Care 411 mg/dl (65-105)
[2024-10-07 22:47] LABS: Glucose Point of Care 350 mg/dl (65-105)
[2024-10-08] MEDS: LACTATED RINGERS 1,000 ML 125 ML IV CONT (00:16)
[2024-10-08 00:37] VITALS: BP 132/73; PULSE 86; RESP 16; TEMP 37; O2SAT 99
[2024-10-08] MEDS: ACETAMINOPHEN 500 MG TABLET 1000 MG PO ×4 (05:03→23:04)
[2024-10-08 05:25] VITALS: BP 133/71; PULSE 80; RESP 20; TEMP 36.6; O2SAT 97
[2024-10-08 07:01] LABS: Basophils Percent Auto 0.1 % (0.2-1.2); Hematocrit 26.1 % (42.0-52.0); Hemoglobin 8.2 g/dL (14.0-18.0); Immature Granulocyte Percent A 0.9 % (0-0.5); Lymphocytes Absolute Auto 1.02 K/mm3 (0.9-3.2); Mean Corpuscular HGB Conc 31.4 g/dl (32-36); Mean Corpuscular Hemoglobin 28.8 pg (26-34); Mean Corpuscular Volume 91.6 fl (80-100); Mean Platelet Volume 10.4 fl (7.4-10.4); Monocytes Absolute Auto 0.8 K/mm3 (0.1-0.6); Monocytes Percent Auto 7.1 % (2.6-8.5); Neutrophils Absolute Auto 9.4 K/mm3 (1.3-6.7); Neutrophils Percent Auto 82.9 % (45.5-73.1); Platelet Count Result 270 k/mm3 (150-375); Red Blood Count 2.85 M/mm3 (4.6-6.20); Red Cell Distribution Width 15.6 % (11.5-14.5); White Blood Count 11.3 K/mm3 (4.5-10.0)
[2024-10-08 07:17] LABS: Alanine Aminotransferase 37 U/L (6-50); Albumin Level 3.6 g/dL (3.5-5.1); Alkaline Phosphatase 63 U/L (38-126); Anion Gap 2 mmol/L (4-12); Aspartate Amino Transferase 38 U/L (17-59); Bilirubin,Total 0.8 mg/dL (0.2-1.3); Blood Urea Nitrogen 8 mg/dL (9-20); Calcium 8.5 mg/dL (8.4-10.2); Carbon Dioxide 31 mmol/L (22-30); Chloride 101 mmol/L (98-107); Estimated CRCL calculation 163 ml/min; Estimated Glomerular Filt Rate > 60; Glucose 226 mg/dL (65-110); Potassium 4.1 mmol/L (3.4-5.0); Sodium 134 mmol/L (137-145)
[2024-10-08 07:55] LABS: Glucose Point of Care 220 mg/dl (65-105)
[2024-10-08] MEDS: ENOXAPARIN 40 MG/0.4 ML SYRINGE SUB-Q (08:26)
[2024-10-08] MEDS: hydroCHLOROthiazide 12.5 MG CAPSULE PO (08:26)
[2024-10-08] MEDS: INSULIN ASPART (*BKC) 100 UNITS/ML SUB-Q ×3 (08:26→16:45)
[2024-10-08] MEDS: lisinopriL 20 MG TABLET PO (08:27)
--- NOTE | 2024-10-08 10:03 | PM.PNGS ---
Progress Note: A&P Assessment and Plan (1) Mass of hepatic flexure of colon: Code(s): K63.89 - Other specified diseases of intestine Status: Acute Assessment and Plan: s/p QUAN R colectomy, doing well, cont routine postop care, ADAT, OOB/IS Subjective Subjective Date/Time Seen: 10/08/24 10:03 Interval history: feels pretty good, some incisional soreness Review of Systems Review of Systems: All systems reviewed & are unremarkable except as noted in HPI and below Exam Const: General: cooperative, comfortable and no acute distress Resp: Auscultation: clear to auscultation bilaterally Cardio: Rate: regular rate Rhythm: regular rhythm GI: Inspection: normal to inspection, distended and incision GI Palp: Yes abdominal tenderness and Yes Soft to palpation Objective Data Vital Signs Vital Signs: Vital Signs - 24 hr 10/07/24 10:19 10/07/24 13:59 10/07/24 14:10 Temperature 36.3 C L Pulse Rate 81 81 76 Respiratory Rate 20 16 20 Blood Pressure 171/90 H 112/48 L 114/55 L Pulse Oximetry 100 99 99 Oxygen Delivery Room Air Simple Face Mask Simple Face Mask Oxygen Flow Rate 8 8 10/07/24 14:25 10/07/24 14:40 10/07/24 14:50 Temperature Pulse Rate 79 76 70 Respiratory Rate 16 20 16 Blood Pressure 127/70 128/62 130/63 Pulse Oximetry 96 95 96 Oxygen Delivery Room Air Nasal Cannula Nasal Cannula Oxygen Flow Rate 2 2 10/07/24 14:52 10/07/24 15:05 10/07/24 15:07 Temperature 34.9 C L 35.1 C L Pulse Rate 71 75 Respiratory Rate 18 18 Blood Pressure 137/74 135/70 Pulse Oximetry 99 99 99 Oxygen Delivery Nasal Cannula Oxygen Flow Rate 2 10/07/24 15:37 10/07/24 18:00 10/07/24 18:46 Temperature 35.1 C L 36.3 C L 36.5 C Pulse Rate 76 76 75 Respiratory Rate 18 18 20 Blood Pressure 134/70 139/62 130/82 Pulse Oximetry 99 99 95 Oxygen Delivery Oxygen Flow Rate 10/07/24 20:00 10/07/24 20:30 10/08/24 00:37 Temperature 36.6 C 37.0 C Pulse Rate 85 86 Respiratory Rate 16 16 Blood Pressure 132/83 132/73 Pulse Oximetry 98 99 Oxygen Delivery Room Air Oxygen Flow Rate 10/08/24 05:25 Temperature 36.6 C Pulse Rate 80 Respiratory Rate 20 Blood Pressure 133/71 Pulse Oximetry 97 Oxygen Delivery Oxygen Flow Rate Intake/Output Intake/Output: Intake & Output 10/05/24 10/06/24 10/07/24 10/08/24 23:59 23:59 23:59 23:59 Intake Total 920 3030 5241 1100 Output Total 200 Balance 920 3030 5041 1100 Meds/Results Medications: Active Medications Generic Name Dose Route Start Last Admin Trade Name Freq PRN Reason Stop Dose Admin Acetaminophen 1,000 mg 10/07/24 18:00 10/08/24 05:03 Acetaminophen 500 Mg Tablet PO 1,000 mg Q6HR DAVIN Administration Albuterol 2 puff 10/03/24 15:08 Albuterol Sulfate (*Sp) Aerosol 1 Puff INHALATION Q4-6H PRN shortness of breath or wheezing Dextrose 12.5 gm 10/03/24 15:11 Dextrose 50% 25 Gm/50 Ml Syringe IV PUSH PRN PRN Hypoglycemia Protocol Enoxaparin Sodium 40 mg 10/08/24 09:00 10/08/24 08:26 Enoxaparin 40 Mg/0.4 Ml Syringe SUB-Q 40 mg DAILY DAVIN Administration Glucagon 1 mg 10/03/24 15:11 Glucagon For Inj 1 Mg Vial IM PRN PRN Hypoglycemia Protocol Glucose 15 gm 10/03/24 15:11 Glucose Oral Gel 15 Gm Of Glucse In 37.5 Gm Tube PO PRN PRN Hypoglycemia Protocol Hydrochlorothiazide 12.5 mg 10/06/24 09:55 10/08/24 08:26 Hydrochlorothiazide 12.5 Mg Capsule PO 12.5 mg QAM DAVIN Administration Hydromorphone HCl 1 mg 10/07/24 14:52 Hydromorphone Hcl Inj (*Crx) 1 Mg/Ml Syr IV PUSH Q2H PRN Breakthrough Pain Rated 7-10 or NPO Hydromorphone HCl 0.5 mg 10/07/24 14:52 Hydromorphone Hcl Inj (*Crx) 1 Mg/Ml Syr IV PUSH Q2H PRN Breakthrough Pain Rated 4-6 or NPO Dextrose 1,000 mls @ 100 mls/hr 10/03/24 15:11 Dextrose 5% 1,000 Ml IVPB PRN PRN Hypoglycemia Protocol Lactated Ringer's 1,000 mls @ 125 mls/hr 10/07/24 14:52 10/08/24 08:29 Lr - Lactated Ringers Iv IV CONT Not Given .Q8H DAVIN Insulin Aspart 4 - 8 units 10/04/24 17:00 10/08/24 08:26 Insulin Aspart (*Bkc) 100 Units/Ml SUB-Q 4 units TIDWM DAVIN Administration Protocol Lisinopril 20 mg 10/06/24 09:55 10/08/24 08:27 Lisinopril 20 Mg Tablet PO 20 mg QAM DAVIN Administration Naloxone HCl 0.1 mg 10/07/24 14:52 Naloxone Hcl 0.4 Mg/Ml Vial IV PUSH Q2M PRN Opiate Reversal Nicotine 1 patch 10/05/24 11:25 10/08/24 08:27 Nicotine (*Pbkc) 14 Mg Patch TRANSDERM Not Given DAILY [facility] Ondansetron HCl 4 mg 10/02/24 22:48 Ondansetron Inj 4 Mg/2 Ml Vial IV PUSH Q4H PRN Nausea Oxycodone HCl 5 mg 10/07/24 14:52 Oxycodone Hcl (*Crx) 5 Mg Tab Ir PO Q4H PRN Pain Rated 4-6 Oxycodone HCl 10 mg 10/07/24 14:52 Oxycodone Hcl (*Crx) 5 Mg Tab Ir PO Q4H PRN Pain Rated 7-10 Radiology Results: ITS Impressions Abdomen/Pelvis CT 10/02/24 21:51 IMPRESSION: Hepatomegaly and steatosis. Findings suspicious for a colonic mass at the hepatic flexure. Recommend referral for endoscopy. Chest CT 10/05/24 09:28 IMPRESSION: 1. Mild right basilar atelectasis. No suspicious pulmonary nodule or acute cardiopulmonary disease. 2. Diffuse hepatic steatosis. 3. Cholelithiasis. Labs Labs: Laboratory Results - last 24 hr 10/07/24 10/07/24 10/07/24 10:59 11:01 16:26 WBC RBC Hgb Hct MCV MCH MCHC RDW Plt Count MPV Immature Gran % (Auto) Neut % (Auto) Lymph % (Auto) [place] % (Auto) Eos % (Auto) Baso % (Auto) Lymph # (Auto) [place] # (Auto) Eos # (Auto) Baso # (Auto) Abs Immat Gran (auto) Absolute Neuts (auto) Absolute Nucleated RBC Nucleated RBC % Sodium Potassium Chloride Carbon Dioxide Anion Gap BUN Creatinine Estim Creat Clear Calc Estimated GFR Glucose POC Capillary Glucose 166 H 254 H Calcium Total Bilirubin AST ALT Alkaline Phosphatase Total Protein Albumin Blood Type O Negative Antibody Screen Negative 10/07/24 10/07/24 10/07/24 18:04 20:33 22:40 WBC RBC Hgb Hct MCV MCH MCHC RDW Plt Count MPV Immature Gran % (Auto) Neut % (Auto) Lymph % (Auto) [place] % (Auto) Eos % (Auto) Baso % (Auto) Lymph # (Auto) [place] # (Auto) Eos # (Auto) Baso # (Auto) Abs Immat Gran (auto) Absolute Neuts (auto) Absolute Nucleated RBC Nucleated RBC % Sodium Potassium Chloride Carbon Dioxide Anion Gap BUN Creatinine Estim Creat Clear Calc Estimated GFR Glucose POC Capillary Glucose 292 H 411 H 350 H Calcium Total Bilirubin AST ALT Alkaline Phosphatase Total Protein Albumin Blood Type Antibody Screen 10/08/24 10/08/24 06:42 07:48 WBC 11.3 H RBC 2.85 L Hgb 8.2 L Hct 26.1 L MCV 91.6 MCH 28.8 MCHC 31.4 L RDW 15.6 H Plt Count 270 MPV 10.4 Immature Gran % (Auto) 0.9 H Neut % (Auto) 82.9 H Lymph % (Auto) 9.0 L [place] % (Auto) 7.1 Eos % (Auto) 0.0 Baso % (Auto) 0.1 L Lymph # (Auto) 1.02 [place] # (Auto) 0.8 H Eos # (Auto) 0.0 Baso # (Auto) 0.0 Abs Immat Gran (auto) 0.10 H Absolute Neuts (auto) 9.4 H Absolute Nucleated RBC 0.000 Nucleated RBC % 0.0 Sodium 134 L Potassium 4.1 Chloride 101 Carbon Dioxide 31 H Anion Gap 2 L BUN 8 L Creatinine 0.80 Estim Creat Clear Calc 163 Estimated GFR > 60 Glucose 226 H POC Capillary Glucose 220 H Calcium 8.5 Total Bilirubin 0.8 AST 38 ALT 37 Alkaline Phosphatase 63 Total Protein 6.0 L Albumin 3.6 Blood Type Antibody Screen
[2024-10-08 10:35] VITALS: BP 135/78; PULSE 83; RESP 18; TEMP 36.6; O2SAT 99
--- NOTE | 2024-10-08 11:53 | P.PNIM_ITS ---
Progress Note: A&P Assessment and Plan (1) GI bleed: Qualifiers: GI bleed type/associated pathology: unspecified gastrointestinal hemorrhage type Qualified Code(s): K92.2 - Gastrointestinal hemorrhage, unspecified Code(s): K92.2 - Gastrointestinal hemorrhage, unspecified Status: Acute Assessment and Plan: Colonoscopy completed, multiple polyps removed and 40 mm Friable mass at hepatic flexure Surgery consulted possible surgery /thursday The patient continued to have hematochezia and underwent colonoscopy today. A malignant-appearing mass in the hepatic flexure was identified and biopsied. The patient has no abdominal pain. He does have an umbilical hernia on exam. This does not appear to cause him any symptoms at this time and he has known about it for a long time. He does remain at risk for recurrent bleeding with this mass and would benefit more urgent surgical intervention. I have discussed proceeding with hand assisted laparoscopic extended right hemicolectomy. Patient had already eaten a solid meal after the colonoscopy by the time we were consulted, therefore he will have to go through another bowel prep prior to surgery. Will plan to check a CEA level and CT chest tomorrow. Will then work on arranging surgery in the coming days. 10/06 surgery for thursday- NPO at midnight. no more bleeding reports. H/H stable- 9.1/30.2 10/07 stable continue to monitior (2) Mass of hepatic flexure of colon: Code(s): K63.89 - Other specified diseases of intestine Status: Acute Assessment and Plan: s/p QUAN R colectomy on 10/07 incisional soreness. no erythema, no drainage bs present ambulate to chair tid clear liquid diet- advance per surgery (3) Acute blood loss anemia: Code(s): D62 - Acute posthemorrhagic anemia Status: Acute Assessment and Plan: reviewed and stable today (4) Hyponatremia: Code(s): E87.1 - Hypo-osmolality and hyponatremia Status: Acute Assessment and Plan: Stable at 133 (5) Hypertension: Code(s): I10 - Essential (primary) hypertension Status: Acute Assessment and Plan: BP had been elevated- will resume home lisinopril/hctz (6) Type 2 diabetes mellitus with hyperglycemia: Code(s): E11.65 - Type 2 diabetes mellitus with hyperglycemia Status: Acute Assessment and Plan: hemoglobin A1c 12 rn diabetes educator nutrition consultation sliding scale insulin while in hospital ss, hypoglycemic protocol Time Spent With Patient Time with patient: Greater than 35 minutes Subjective Date/time seen: 10/08/24 11:53 Interval history: pt is seen and examined this am. QUAN right hemicolectomy 10/07-doing well. Up in the chair- pain is controlled - reports some soreness. drinking well-reports no n/v. passing gas, no bm yet Review of Systems Review of Systems: All systems reviewed & are unremarkable except as noted in HPI and below Constitutional: Constitutional: Denies body ache(s), Denies difficulty sleeping, Reports fatigue, Denies headache(s), Denies lethargy, Denies night sweats and Denies weakness Eyes: Eyes: Reports no additional eye complaints and Reports blurry vision ENT: Reports Normal hearing present, Reports dysphagia, Denies vertigo, Denies headache(s), Reports epistaxis, Reports nasal congestion and Denies neck pain Cardiovascular: Cardiovascular: Denies pedal edema, Denies leg edema, Denies lightheadedness, Denies palpitations, Denies dyspnea and Denies dyspnea on exertion Respiratory: Respiratory: Denies hemoptysis, Denies dyspnea and Denies dyspnea on exertion Gastrointestinal: Gastrointestinal: Reports hematochezia, Denies constipation, Reports dysphagia, Denies heartburn, Denies diarrhea and Denies nausea Genitourinary: Genitourinary: Denies flank pain, Denies urinary frequency, Denies urinary hesitancy, Denies urinary incontinence and Denies urinary urgency Musculoskeletal: Musculoskeletal: Denies abnormal gait, Denies back pain, Denies myalgias, Denies arthralgias, Denies joint swelling and Denies neck pain Integumentary/Breasts: Skin/Breast: Reports dry skin Neurologic: Denies system reviewed and no additional complaints, except as documented, Reports Normal hearing present, Denies Abnormal speech present, Denies abnormal gait, Denies behavioral changes, Denies confusion, Denies vertigo, Denies headache(s) and Denies weakness Psychiatric: Psychiatric: Reports anxiety, Denies behavioral changes and Denies confusion Endocrine: Endocrine: Reports fatigue and Denies palpitations Exam Narrative: GENERAL: Well-appearing, well-nourished, and in no acute distress. HEAD: Normocephalic, atraumatic. ENT:? Mucous membranes moist. CHEST: Clear to auscultation.? No respiratory distress. HEART: Regular rate and rhythm. ? Normal peripheral pulses. ABDOMEN: incisional soreness. EXTREMITIES: Normal range of motion. No peripheral edema. SKIN: Warm dry normal color NEURO: Alert and oriented x3. PSYCH: Normal mood and affect Const: General: no acute distress; No in distress, confusion or uncomfortable Orientation/consciousness: No confusion HENMT: Ears: TM's abnormal bilaterally Mouth: No moist mucous membranes, No dry mucous membranes and No Abnormal oral and palatal mucosa present Eyes: General: appearance abnormal, both eyes Sclera: sclerae normal Pupils: Equal, round and reactive pupils present EOM: EOM not intact bilaterally Neck: Neck: supple Thyroid: thyroid normal Lymphatic: lymphadenopathy Resp: Auscultation: not clear to auscultation bilaterally, no crackles, no rales, no rhonchi and no wheezes Cardio: Rate: regular rate and not bradycardic Rhythm: regular rhythm GI: Auscultation: normal bowel sounds Skin: General skin exam: normal color Neuro: General: No confusion Cranial nerves: Yes Equal, round and reactive pupils present and Yes Normal hearing present Speech: No Abnormal speech present Motor exam (neuro): 5/5 motor strength present throughout, Normal motor muscle tone present throughout, strength normal and abnormal movements noted Sensory Exam: normal sensation Extrem: General: normal to inspection, no edema and no pedal edema Psych: Mental Status: mental status grossly normal Objective Data Vital Signs Vital Signs: Vital Signs - 24 hr 10/07/24 13:59 10/07/24 14:10 10/07/24 14:25 Temperature 97.4 F L Pulse Rate 81 76 79 Respiratory Rate 16 20 16 Blood Pressure 112/48 L 114/55 L 127/70 Pulse Oximetry 99 99 96 Oxygen Delivery Simple Face Mask Simple Face Mask Room Air Oxygen Flow Rate 8 8 10/07/24 14:40 10/07/24 14:50 10/07/24 14:52 Temperature 94.9 F L Pulse Rate 76 70 71 Respiratory Rate 20 16 18 Blood Pressure 128/62 130/63 137/74 Pulse Oximetry 95 96 99 Oxygen Delivery Nasal Cannula Nasal Cannula Oxygen Flow Rate 2 2 10/07/24 15:05 10/07/24 15:07 10/07/24 15:37 Temperature 95.1 F L 95.2 F L Pulse Rate 75 76 Respiratory Rate 18 18 Blood Pressure 135/70 134/70 Pulse Oximetry 99 99 99 Oxygen Delivery Nasal Cannula Oxygen Flow Rate 2 10/07/24 18:00 10/07/24 18:46 10/07/24 20:00 Temperature 97.4 F L 97.7 F Pulse Rate 76 75 Respiratory Rate 18 20 Blood Pressure 139/62 130/82 Pulse Oximetry 99 95 Oxygen Delivery Room Air Oxygen Flow Rate 10/07/24 20:30 10/08/24 00:37 10/08/24 05:25 Temperature 97.9 F 98.6 F 97.8 F Pulse Rate 85 86 80 Respiratory Rate 16 16 20 Blood Pressure 132/83 132/73 133/71 Pulse Oximetry 98 99 97 Oxygen Delivery Oxygen Flow Rate 10/08/24 10:35 Temperature 97.9 F Pulse Rate 83 Respiratory Rate 18 Blood Pressure 135/78 Pulse Oximetry 99 Oxygen Delivery Oxygen Flow Rate Intake/Output Intake/Output: Intake & Output 10/05/24 10/06/24 10/07/24 10/08/24 23:59 23:59 23:59 23:59 Intake Total 920 3030 5241 1580 Output Total 200 Balance 920 3030 5041 1580 Meds/Results Medications: Active Medications Generic Name Dose Route Start Last Admin Trade Name Freq PRN Reason Stop Dose Admin Acetaminophen 1,000 mg 10/07/24 18:00 10/08/24 05:03 Acetaminophen 500 Mg Tablet PO 1,000 mg Q6HR DAVIN Administration Albuterol 2 puff 10/03/24 15:08 Albuterol Sulfate (*Sp) Aerosol 1 Puff INHALATION Q4-6H PRN shortness of breath or wheezing Dextrose 12.5 gm 10/03/24 15:11 Dextrose 50% 25 Gm/50 Ml Syringe IV PUSH PRN PRN Hypoglycemia Protocol Enoxaparin Sodium 40 mg 10/08/24 09:00 10/08/24 08:26 Enoxaparin 40 Mg/0.4 Ml Syringe SUB-Q 40 mg DAILY DAVIN Administration Glucagon 1 mg 10/03/24 15:11 Glucagon For Inj 1 Mg Vial IM PRN PRN Hypoglycemia Protocol Glucose 15 gm 10/03/24 15:11 Glucose Oral Gel 15 Gm Of Glucse In 37.5 Gm Tube PO PRN PRN Hypoglycemia Protocol Hydrochlorothiazide 12.5 mg 10/06/24 09:55 10/08/24 08:26 Hydrochlorothiazide 12.5 Mg Capsule PO 12.5 mg QAM DAVIN Administration Hydromorphone HCl 1 mg 10/07/24 14:52 Hydromorphone Hcl Inj (*Crx) 1 Mg/Ml Syr IV PUSH Q2H PRN Breakthrough Pain Rated 7-10 or NPO Hydromorphone HCl 0.5 mg 10/07/24 14:52 Hydromorphone Hcl Inj (*Crx) 1 Mg/Ml Syr IV PUSH Q2H PRN Breakthrough Pain Rated 4-6 or NPO Dextrose 1,000 mls @ 100 mls/hr 10/03/24 15:11 Dextrose 5% 1,000 Ml IVPB PRN PRN Hypoglycemia Protocol Lactated Ringer's 1,000 mls @ 125 mls/hr 10/07/24 14:52 10/08/24 08:29 Lr - Lactated Ringers Iv IV CONT Not Given .Q8H [facility] Insulin Aspart 4 - 8 units 10/04/24 17:00 10/08/24 08:26 Insulin Aspart (*Bkc) 100 Units/Ml SUB-Q 4 units TIDWM [facility] Administration Protocol Lisinopril 20 mg 10/06/24 09:55 10/08/24 08:27 Lisinopril 20 Mg Tablet PO 20 mg QAM [facility] Administration Naloxone HCl 0.1 mg 10/07/24 14:52 Naloxone Hcl 0.4 Mg/Ml Vial IV PUSH Q2M PRN Opiate Reversal Nicotine 1 patch 10/05/24 11:25 10/08/24 08:27 Nicotine (*Pbkc) 14 Mg Patch TRANSDERM Not Given DAILY [facility] Ondansetron HCl 4 mg 10/02/24 22:48 Ondansetron Inj 4 Mg/2 Ml Vial IV PUSH Q4H PRN Nausea Oxycodone HCl 5 mg 10/07/24 14:52 Oxycodone Hcl (*Crx) 5 Mg Tab Ir PO Q4H PRN Pain Rated 4-6 Oxycodone HCl 10 mg 10/07/24 14:52 Oxycodone Hcl (*Crx) 5 Mg Tab Ir PO Q4H PRN Pain Rated 7-10 Radiology Results: ITS Impressions Abdomen/Pelvis CT 10/02/24 21:51 IMPRESSION: Hepatomegaly and steatosis. Findings suspicious for a colonic mass at the hepatic flexure. Recommend referr al for endoscopy. Chest CT 10/05/24 09:28 IMPRESSION: 1. Mild right basilar atelectasis. No suspicious pulmonary nodule or acute cardiopulmonary disease. 2. Diffuse hepatic steatosis. 3. Cholelithiasis. Labs Labs: Laboratory Results - last 24 hr 10/07/24 10/07/24 10/07/24 10:59 16:26 18:04 WBC RBC Hgb Hct MCV MCH MCHC RDW Plt Count MPV Immature Gran % (Auto) Neut % (Auto) Lymph % (Auto) [place] % (Auto) Eos % (Auto) Baso % (Auto) Lymph # (Auto) [place] # (Auto) Eos # (Auto) Baso # (Auto) Abs Immat Gran (auto) Absolute Neuts (auto) Absolute Nucleated RBC Nucleated RBC % Sodium Potassium Chloride Carbon Dioxide Anion Gap BUN Creatinine Estim Creat Clear Calc Estimated GFR Glucose POC Capillary Glucose 254 H 292 H Calcium Total Bilirubin AST ALT Alkaline Phosphatase Total Protein Albumin Blood Type O Negative Antibody Screen Negative 10/07/24 10/07/24 10/08/24 20:33 22:40 06:42 WBC 11.3 H RBC 2.85 L Hgb 8.2 L Hct 26.1 L MCV 91.6 MCH 28.8 MCHC 31.4 L RDW 15.6 H Plt Count 270 MPV 10.4 Immature Gran % (Auto) 0.9 H Neut % (Auto) 82.9 H Lymph % (Auto) 9.0 L [place] % (Auto) 7.1 Eos % (Auto) 0.0 Baso % (Auto) 0.1 L Lymph # (Auto) 1.02 [place] # (Auto) 0.8 H Eos # (Auto) 0.0 Baso # (Auto) 0.0 Abs Immat Gran (auto) 0.10 H Absolute Neuts (auto) 9.4 H Absolute Nucleated RBC 0.000 Nucleated RBC % 0.0 Sodium 134 L Potassium 4.1 Chloride 101 Carbon Dioxide 31 H Anion Gap 2 L BUN 8 L Creatinine 0.80 Estim Creat Clear Calc 163 Estimated GFR > 60 Glucose 226 H POC Capillary Glucose 411 H 350 H Calcium 8.5 Total Bilirubin 0.8 AST 38 ALT 37 Alkaline Phosphatase 63 Total Protein 6.0 L Albumin 3.6 Blood Type Antibody Screen 10/08/24 07:48 WBC RBC Hgb Hct MCV MCH MCHC RDW Plt Count MPV Immature Gran % (Auto) Neut % (Auto) Lymph % (Auto) [place] % (Auto) Eos % (Auto) Baso % (Auto) Lymph # (Auto) [place] # (Auto) Eos # (Auto) Baso # (Auto) Abs Immat Gran (auto) Absolute Neuts (auto) Absolute Nucleated RBC Nucleated RBC % Sodium Potassium Chloride Carbon Dioxide Anion Gap BUN Creatinine Estim Creat Clear Calc Estimated GFR Glucose POC Capillary Glucose 220 H Calcium Total Bilirubin AST ALT Alkaline Phosphatase Total Protein Albumin Blood Type Antibody Screen Quality VTE Prophylaxis VTE prophylaxis: mechanical ordered
[2024-10-08 12:01] LABS: Glucose Point of Care 263 mg/dl (65-105)
[2024-10-08 15:59] VITALS: BP 135/72; PULSE 80; RESP 20; TEMP 36.1; O2SAT 100
[2024-10-08 16:44] LABS: Glucose Point of Care 212 mg/dl (65-105)
[2024-10-08 20:00] VITALS: PULSE 80; RESP 22; O2SAT 100
[2024-10-08 20:42] LABS: Glucose Point of Care 262 mg/dl (65-105)
[2024-10-08] MEDS: INSULIN GLARGINE (*BKC) 100 UNITS/ML 10 UNITS SUB-Q (20:42)
[2024-10-08 21:12] VITALS: BP 150/73; PULSE 80; RESP 22; TEMP 36.3; O2SAT 100
[2024-10-09] MEDS: ACETAMINOPHEN 500 MG TABLET 1000 MG PO ×2 (05:22→12:22)
[2024-10-09 07:31] LABS: Basophils Percent Auto 0.2 % (0.2-1.2); Eosinophils Percent Auto 0.4 % (0-4.4); Hematocrit 26.5 % (42.0-52.0); Immature Granulocyte Absolute 0.06 K/mm3 (0.00-0.031); Immature Granulocyte Percent A 0.7 % (0-0.5); Lymphocytes Absolute Auto 2.01 K/mm3 (0.9-3.2); Lymphocytes Percent Auto 21.9 % (18.3-44.2); Mean Corpuscular HGB Conc 30.2 g/dl (32-36); Mean Corpuscular Hemoglobin 28.2 pg (26-34); Mean Corpuscular Volume 93.3 fl (80-100); Mean Platelet Volume 11.1 fl (7.4-10.4); Monocytes Absolute Auto 0.7 K/mm3 (0.1-0.6); Monocytes Percent Auto 7.6 % (2.6-8.5); Neutrophils Absolute Auto 6.4 K/mm3 (1.3-6.7); Neutrophils Percent Auto 69.2 % (45.5-73.1); Platelet Count Result 275 k/mm3 (150-375); Red Blood Count 2.84 M/mm3 (4.6-6.20); Red Cell Distribution Width 15.9 % (11.5-14.5); White Blood Count 9.2 K/mm3 (4.5-10.0)
[2024-10-09 07:47] LABS: Alanine Aminotransferase 28 U/L (6-50); Albumin Level 3.8 g/dL (3.5-5.1); Alkaline Phosphatase 54 U/L (38-126); Anion Gap 6 mmol/L (4-12); Aspartate Amino Transferase 34 U/L (17-59); Bilirubin,Total 0.9 mg/dL (0.2-1.3); Blood Urea Nitrogen 9 mg/dL (9-20); Calcium 8.4 mg/dL (8.4-10.2); Carbon Dioxide 31 mmol/L (22-30); Chloride 97 mmol/L (98-107); Estimated CRCL calculation 163 ml/min; Estimated Glomerular Filt Rate > 60; Glucose 201 mg/dL (65-110); Potassium 3.6 mmol/L (3.4-5.0); Sodium 134 mmol/L (137-145)
[2024-10-09] MEDS: lisinopriL 20 MG TABLET PO (08:10)
[2024-10-09] MEDS: hydroCHLOROthiazide 12.5 MG CAPSULE PO (08:10)
[2024-10-09 08:21] LABS: Glucose Point of Care 187 mg/dl (65-105)
--- NOTE | 2024-10-09 10:12 | P.PNIM_ITS ---
Progress Note: A&P Assessment and Plan (1) GI bleed: Qualifiers: GI bleed type/associated pathology: unspecified gastrointestinal hemorrhage type Qualified Code(s): K92.2 - Gastrointestinal hemorrhage, unspecified Code(s): K92.2 - Gastrointestinal hemorrhage, unspecified Status: Acute Assessment and Plan: Colonoscopy completed, multiple polyps removed and 40 mm Friable mass at hepatic flexure Surgery consulted possible surgery /thursday The patient continued to have hematochezia and underwent colonoscopy today. A malignant-appearing mass in the hepatic flexure was identified and biopsied. The patient has no abdominal pain. He does have an umbilical hernia on exam. This does not appear to cause him any symptoms at this time and he has known about it for a long time. He does remain at risk for recurrent bleeding with this mass and would benefit more urgent surgical intervention. I have discussed proceeding with hand assisted laparoscopic extended right hemicolectomy. Patient had already eaten a solid meal after the colonoscopy by the time we were consulted, therefore he will have to go through another bowel prep prior to surgery. Will plan to check a CEA level and CT chest tomorrow. Will then work on arranging surgery in the coming days. 10/06 surgery for thursday- NPO at midnight. no more bleeding reports. H/H stable- 9.1/30.2 10/07 stable continue to monitior (2) Mass of hepatic flexure of colon: Code(s): K63.89 - Other specified diseases of intestine Status: Acute Assessment and Plan: s/p QUAN R colectomy on 10/07 incisional soreness. no erythema, no drainage bs present ambulate to chair tid clear liquid diet- advance per surgery (3) Acute blood loss anemia: Code(s): D62 - Acute posthemorrhagic anemia Status: Acute Assessment and Plan: reviewed and stable today (4) Hyponatremia: Code(s): E87.1 - Hypo-osmolality and hyponatremia Status: Acute Assessment and Plan: Stable at 133 (5) Hypertension: Code(s): I10 - Essential (primary) hypertension Status: Acute Assessment and Plan: BP had been elevated- will resume home lisinopril/hctz (6) Type 2 diabetes mellitus with hyperglycemia: Code(s): E11.65 - Type 2 diabetes mellitus with hyperglycemia Status: Acute Assessment and Plan: 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 QUAN right hemicolectomy 10/07-doing well. passing gas. pain is controlled Review of Systems Review of Systems: All systems reviewed & are unremarkable except as noted in HPI and below Constitutional: Constitutional: Denies body ache(s), Denies difficulty sleeping, Reports fatigue, Denies headache(s), Denies lethargy, Denies night sweats and Denies weakness Eyes: Eyes: Reports no additional eye complaints and Reports blurry vision ENT: Reports Normal hearing present, Reports dysphagia, Denies vertigo, Denies headache(s), Reports epistaxis, Reports nasal congestion and Denies neck pain Cardiovascular: Cardiovascular: Denies pedal edema, Denies leg edema, Denies lightheadedness, Denies palpitations, Denies dyspnea and Denies dyspnea on exertion Respiratory: Respiratory: Denies hemoptysis, Denies dyspnea and Denies dyspnea on exertion Gastrointestinal: Gastrointestinal: Reports hematochezia, Denies constipation, Reports dysphagia, Denies heartburn, Denies diarrhea and Denies nausea Genitourinary: Genitourinary: Denies flank pain, Denies urinary frequency, Denies urinary hesitancy, Denies urinary incontinence and Denies urinary urgency Musculoskeletal: Musculoskeletal: Denies abnormal gait, Denies back pain, Denies myalgias, Denies arthralgias, Denies joint swelling and Denies neck pain Integumentary/Breasts: Skin/Breast: Reports dry skin Neurologic: Denies system reviewed and no additional complaints, except as documented, Reports Normal hearing present, Denies Abnormal speech present, Denies abnormal gait, Denies behavioral changes, Denies confusion, Denies vertig o, Denies headache(s) and Denies weakness Psychiatric: Psychiatric: Reports anxiety, Denies behavioral changes and Denies confusion Endocrine: Endocrine: Reports fatigue and Denies palpitations Exam Narrative: GENERAL: Well-appearing, well-nourished, and in no acute distress. HEAD: Normocephalic, atraumatic. ENT:? Mucous membranes moist. CHEST: Clear to auscultation.? No respiratory distress. HEART: Regular rate and rhythm. ? Normal peripheral pulses. ABDOMEN: incisional soreness. EXTREMITIES: Normal range of motion. No peripheral edema. SKIN: Warm dry normal color NEURO: Alert and oriented x3. PSYCH: Normal mood and affect Const: General: no acute distress; No in distress, confusion or uncomfortable Orientation/consciousness: No confusion HENMT: Ears: TM's abnormal bilaterally Mouth: No moist mucous membranes, No dry mucous membranes and No Abnormal oral and palatal mucosa present Eyes: General: appearance abnormal, both eyes Sclera: sclerae normal Pupils: Equal, round and reactive pupils present EOM: EOM not intact bilaterally Neck: Neck: supple Thyroid: thyroid normal Lymphatic: lymphadenopathy Resp: Auscultation: not clear to auscultation bilaterally, no crackles, no rales, no rhonchi and no wheezes Cardio: Rate: regular rate and not bradycardic Rhythm: regular rhythm GI: Auscultation: normal bowel sounds Skin: General skin exam: normal color Neuro: General: No confusion Cranial nerves: Yes Equal, round and reactive pupils present and Yes Normal hearing present Speech: No Abnormal speech present Motor exam (neuro): 5/5 motor strength present throughout, Normal motor muscle tone present throughout, strength normal and abnormal movements noted Sensory Exam: normal sensation Extrem: General: normal to inspection, no edema and no pedal edema Psych: Mental Status: mental status grossly normal Objective Data Vital Signs Vital Signs: Vital Signs - 24 hr 10/08/24 10:35 10/08/24 15:59 10/08/24 21:12 Temperature 97.9 F 97.0 F L 97.4 F L Pulse Rate 83 80 80 Respiratory Rate 18 20 22 H Blood Pressure 135/78 135/72 150/73 H Pulse Oximetry 99 100 100 Oxygen Delivery 10/08/24 20:00 Temperature Pulse Rate 80 Respiratory Rate 22 H Blood Pressure Pulse Oximetry 100 Oxygen Delivery Room Air Intake/Output Intake/Output: Intake & Output 10/06/24 10/07/24 10/08/24 10/09/24 23:59 23:59 23:59 23:59 Intake Total 3030 5241 2442 790 Output Total 200 Balance 3030 5041 2442 790 Meds/Results Medications: Active Medications Generic Name Dose Route Start Last Admin Trade Name Freq PRN Reason Stop Dose Admin Acetaminophen 1,000 mg 10/07/24 18:00 10/09/24 05:22 Acetaminophen 500 Mg Tablet PO 1,000 mg Q6HR DAVIN Administration Albuterol 2 puff 10/03/24 15:08 Albuterol Sulfate (*Sp) Aerosol 1 Puff INHALATION Q4-6H PRN shortness of breath or wheezing Dextrose 12.5 gm 10/03/24 15:11 Dextrose 50% 25 Gm/50 Ml Syringe IV PUSH PRN PRN Hypoglycemia Protocol Enoxaparin Sodium 40 mg 10/08/24 09:00 10/09/24 08:10 Enoxaparin 40 Mg/0.4 Ml Syringe SUB-Q Not Given DAILY DAVIN Glucagon 1 mg 10/03/24 15:11 Glucagon For Inj 1 Mg Vial IM PRN PRN Hypoglycemia Protocol Glucose 15 gm 10/03/24 15:11 Glucose Oral Gel 15 Gm Of Glucse In 37.5 Gm Tube PO PRN PRN Hypoglycemia Protocol Hydrochlorothiazide 12.5 mg 10/06/24 09:55 10/09/24 08:10 Hydrochlorothiazide 12.5 Mg Capsule PO 12.5 mg QAM DAVIN Administration Hydromorphone HCl 1 mg 10/07/24 14:52 Hydromorphone Hcl Inj (*Crx) 1 Mg/Ml Syr IV PUSH Q2H PRN Breakthrough Pain Rated 7-10 or NPO Hydromorphone HCl 0.5 mg 10/07/24 14:52 Hydromorphone Hcl Inj (*Crx) 1 Mg/Ml Syr IV PUSH Q2H PRN Breakthrough Pain Rated 4-6 or NPO Dextrose 1,000 mls @ 100 mls/hr 10/03/24 15:11 Dextrose 5% 1,000 Ml IVPB PRN PRN Hypoglycemia Protocol Insulin Aspart 4 - 8 units 10/04/24 17:00 10/09/24 08:10 Insulin Aspart (*Bkc) 100 Units/Ml SUB-Q Not Given TIDWM [facility] Protocol Insulin Glargine 10 units 10/08/24 21:00 10/08/24 20:42 Insulin Glargine (*Bkc) 100 Units/Ml SUB-Q 10 units HS DAVIN Administration Lisinopril 20 mg 10/06/24 09:55 10/09/24 08:10 Lisinopril 20 Mg Tablet PO 20 mg QAM DAVIN Administration Naloxone HCl 0.1 mg 10/07/24 14:52 Naloxone Hcl 0.4 Mg/Ml Vial IV PUSH Q2M PRN Opiate Reversal Nicotine 1 patch 10/05/24 11:25 10/09/24 08:12 Nicotine (*Pbkc) 14 Mg Patch TRANSDERM Not Given DAILY DAVIN Ondansetron HCl 4 mg 10/02/24 22:48 Ondansetron Inj 4 Mg/2 Ml Vial IV PUSH Q4H PRN Nausea Oxycodone HCl 5 mg 10/07/24 14:52 Oxycodone Hcl (*Crx) 5 Mg Tab Ir PO Q4H PRN Pain Rated 4-6 Oxycodone HCl 10 mg 10/07/24 14:52 Oxycodone Hcl (*Crx) 5 Mg Tab Ir PO Q4H PRN Pain Rated 7-10 Radiology Results: ITS Impressions Abdomen/Pelvis CT 10/02/24 21:51 IMPRESSION: Hepatomegaly and steatosis. Findings suspicious for a colonic mass at the hepatic flexure. Recommend referral for endoscopy. Chest CT 10/05/24 09:28 IMPRESSION: 1. Mild right basilar atelectasis. No suspicious pulmonary nodule or acute cardiopulmonary disease. 2. Diffuse hepatic steatosis. 3. Cholelithiasis. Labs Labs: Laboratory Results - last 24 hr 10/08/24 10/08/24 10/08/24 11:58 16:41 20:33 WBC RBC Hgb Hct MCV MCH MCHC RDW Plt Count MPV Immature Gran % (Auto) Neut % (Auto) Lymph % (Auto) [place] % (Auto) Eos % (Auto) Baso % (Auto) Lymph # (Auto) [place] # (Auto) Eos # (Auto) Baso # (Auto) Abs Immat Gran (auto) Absolute Neuts (auto) Absolute Nucleated RBC Nucleated RBC % Sodium Potassium Chloride Carbon Dioxide Anion Gap BUN Creatinine Estim Creat Clear Calc Estimated GFR Glucose POC Capillary Glucose 263 H 212 H 262 H Calcium Total Bilirubin AST ALT Alkaline Phosphatase Total Protein Albumin 10/09/24 10/09/24 06:44 08:04 WBC 9.2 RBC 2.84 L Hgb 8.0 L Hct 26.5 L MCV 93.3 MCH 28.2 MCHC 30.2 L RDW 15.9 H Plt Count 275 MPV 11.1 H Immature Gran % (Auto) 0.7 H Neut % (Auto) 69.2 Lymph % (Auto) 21.9 [place] % (Auto) 7.6 Eos % (Auto) 0.4 Baso % (Auto) 0.2 Lymph # (Auto) 2.01 [place] # (Auto) 0.7 H Eos # (Auto) 0.0 Baso # (Auto) 0.0 Abs Immat Gran (auto) 0.06 H Absolute Neuts (auto) 6.4 Absolute Nucleated RBC 0.000 Nucleated RBC % 0.0 Sodium 134 L Potassium 3.6 Chloride 97 L Carbon Dioxide 31 H Anion Gap 6 BUN 9 Creatinine 0.80 Estim Creat Clear Calc 163 Estimated GFR > 60 Glucose 201 H POC Capillary Glucose 187 H Calcium 8.4 Total Bilirubin 0.9 AST 34 ALT 28 Alkaline Phosphatase 54 Total Protein 6.0 L Albumin 3.8 Quality VTE Prophylaxis VTE prophylaxis: mechanical ordered
--- NOTE | 2024-10-09 11:15 | PM.PNGS ---
Progress Note: A&P Assessment and Plan (1) Mass of hepatic flexure of colon: Code(s): K63.89 - Other specified diseases of intestine Status: Acute Assessment and Plan: doing well status post right colectomy, continue routine postoperative care, okay to discharge home from surgical standpoint with p.o. analgesia and follow-up in 2 weeks Subjective Subjective Date/Time Seen: 10/09/24 11:15 Interval history: feels good, mild incisional soreness, risa diet Review of Systems Review of Systems: All systems reviewed & are unremarkable except as noted in HPI and below Exam Const: General: cooperative, comfortable and no acute distress Resp: Auscultation: clear to auscultation bilaterally Cardio: Rate: regular rate Rhythm: regular rhythm GI: Inspection: normal to inspection, distended and incision GI Palp: Yes abdominal tenderness, Yes Soft to palpation and Yes Tenderness to palpation present (GI) Objective Data Vital Signs Vital Signs: Vital Signs - 24 hr 10/08/24 15:59 10/08/24 21:12 10/08/24 20:00 Temperature 36.1 C L 36.3 C L Pulse Rate 80 80 80 Respiratory Rate 20 22 H 22 H Blood Pressure 135/72 150/73 H Pulse Oximetry 100 100 100 Oxygen Delivery Room Air Intake/Output Intake/Output: Intake & Output 10/06/24 10/07/24 10/08/24 10/09/24 23:59 23:59 23:59 23:59 Intake Total 3030 5241 2442 790 Output Total 200 Balance 3030 5041 2442 790 Meds/Results Medications: Active Medications Generic Name Dose Route Start Last Admin Trade Name Freq PRN Reason Stop Dose Admin Acetaminophen 1,000 mg 10/07/24 18:00 10/09/24 05:22 Acetaminophen 500 Mg Tablet PO 1,000 mg Q6HR DAVIN Administration Albuterol 2 puff 10/03/24 15:08 Albuterol Sulfate (*Sp) Aerosol 1 Puff INHALATION Q4-6H PRN shortness of breath or wheezing Dextrose 12.5 gm 10/03/24 15:11 Dextrose 50% 25 Gm/50 Ml Syringe IV PUSH PRN PRN Hypoglycemia Protocol Enoxaparin Sodium 40 mg 10/08/24 09:00 10/09/24 08:10 Enoxaparin 40 Mg/0.4 Ml Syringe SUB-Q Not Given DAILY DAVIN Glucagon 1 mg 10/03/24 15:11 Glucagon For Inj 1 Mg Vial IM PRN PRN Hypoglycemia Protocol Glucose 15 gm 10/03/24 15:11 Glucose Oral Gel 15 Gm Of Glucse In 37.5 Gm Tube PO PRN PRN Hypoglycemia Protocol Hydrochlorothiazide 12.5 mg 10/06/24 09:55 10/09/24 08:10 Hydrochlorothiazide 12.5 Mg Capsule PO 12.5 mg QAM DAVIN Administration Hydromorphone HCl 1 mg 10/07/24 14:52 Hydromorphone Hcl Inj (*Crx) 1 Mg/Ml Syr IV PUSH Q2H PRN Breakthrough Pain Rated 7-10 or NPO Hydromorphone HCl 0.5 mg 10/07/24 14:52 Hydromorphone Hcl Inj (*Crx) 1 Mg/Ml Syr IV PUSH Q2H PRN Breakthrough Pain Rated 4-6 or NPO Dextrose 1,000 mls @ 100 mls/hr 10/03/24 15:11 Dextrose 5% 1,000 Ml IVPB PRN PRN Hypoglycemia Protocol Insulin Aspart 4 - 8 units 10/04/24 17:00 10/09/24 08:10 Insulin Aspart (*Bkc) 100 Units/Ml SUB-Q Not Given TIDWM [facility] Protocol Insulin Glargine 10 units 10/08/24 21:00 10/08/24 20:42 Insulin Glargine (*Bkc) 100 Units/Ml SUB-Q 10 units HS DAVIN Administration Lisinopril 20 mg 10/06/24 09:55 10/09/24 08:10 Lisinopril 20 Mg Tablet PO 20 mg QAM DAVIN Administration Naloxone HCl 0.1 mg 10/07/24 14:52 Naloxone Hcl 0.4 Mg/Ml Vial IV PUSH Q2M PRN Opiate Reversal Nicotine 1 patch 10/05/24 11:25 10/09/24 08:12 Nicotine (*Pbkc) 14 Mg Patch TRANSDERM Not Given DAILY [facility] Ondansetron HCl 4 mg 10/02/24 22:48 Ondansetron Inj 4 Mg/2 Ml Vial IV PUSH Q4H PRN Nausea Oxycodone HCl 5 mg 10/07/24 14:52 Oxycodone Hcl (*Crx) 5 Mg Tab Ir PO Q4H PRN Pain Rated 4-6 Oxycodone HCl 10 mg 12/06/24 14:52 Oxycodone Hcl (*Crx) 5 Mg Tab Ir PO Q4H PRN Pain Rated 7-10 Radiology Results: ITS Impressions Abdomen/Pelvis CT 10/02/24 21:51 IMPRESSION: Hepatomegaly and steatosis. Findings suspicious for a colonic mass at the hepatic flexure. Recommend referral for endoscopy. Chest CT 10/05/24 09:28 IMPRESSION: 1. Mild right basilar atelectasis. No suspicious pulmonary nodule or acute cardiopulmonary disease. 2. Diffuse hepatic steatosis. 3. Cholelithiasis. Labs Labs: Laboratory Results - last 24 hr 10/08/24 10/08/24 10/08/24 11:58 16:41 20:33 WBC RBC Hgb Hct MCV MCH MCHC RDW Plt Count MPV Immature Gran % (Auto) Neut % (Auto) Lymph % (Auto) [place] % (Auto) Eos % (Auto) Baso % (Auto) Lymph # (Auto) [place] # (Auto) Eos # (Auto) Baso # (Auto) Abs Immat Gran (auto) Absolute Neuts (auto) Absolute Nucleated RBC Nucleated RBC % Sodium Potassium Chloride Carbon Dioxide Anion Gap BUN Creatinine Estim Creat Clear Calc Estimated GFR Glucose POC Capillary Glucose 263 H 212 H 262 H Calcium Total Bilirubin AST ALT Alkaline Phosphatase Total Protein Albumin 10/09/24 10/09/24 06:44 08:04 WBC 9.2 RBC 2.84 L Hgb 8.0 L Hct 26.5 L MCV 93.3 MCH 28.2 MCHC 30.2 L RDW 15.9 H Plt Count 275 MPV 11.1 H Immature Gran % (Auto) 0.7 H Neut % (Auto) 69.2 Lymph % (Auto) 21.9 [place] % (Auto) 7.6 Eos % (Auto) 0.4 Baso % (Auto) 0.2 Lymph # (Auto) 2.01 [place] # (Auto) 0.7 H Eos # (Auto) 0.0 Baso # (Auto) 0.0 Abs Immat Gran (auto) 0.06 H Absolute Neuts (auto) 6.4 Absolute Nucleated RBC 0.000 Nucleated RBC % 0.0 Sodium 134 L Potassium 3.6 Chloride 97 L Carbon Dioxide 31 H Anion Gap 6 BUN 9 Creatinine 0.80 Estim Creat Clear Calc 163 Estimated GFR > 60 Glucose 201 H POC Capillary Glucose 187 H Calcium 8.4 Total Bilirubin 0.9 AST 34 ALT 28 Alkaline Phosphatase 54 Total Protein 6.0 L Albumin 3.8
[2024-10-09 12:10] LABS: Glucose Point of Care 321 mg/dl (65-105)
[2024-10-09] MEDS: INSULIN ASPART (*BKC) 100 UNITS/ML SUB-Q (12:22)
--- NOTE | 2024-10-09 13:50 | PM.DS ---
DS: Admitting Diagnosis Discharge Date 10/09 Admitting Diagnosis blood in stool DS: Discharge Diagnosis Discharge Diagnosis (1) GI bleed: Qualifiers: GI bleed type/associated pathology: unspecified gastrointestinal hemorrhage type Qualified Code(s): K92.2 - Gastrointestinal hemorrhage, unspecified Code(s): K92.2 - Gastrointestinal hemorrhage, unspecified Status: Acute Assessment and Plan: Colonoscopy completed, multiple polyps removed and 40 mm Friable mass at hepatic flexure Surgery consulted possible surgery /thursday The patient continued to have hematochezia and underwent colonoscopy today. A malignant-appearing mass in the hepatic flexure was identified and biopsied. The patient has no abdominal pain. He does have an umbilical hernia on exam. This does not appear to cause him any symptoms at this time and he has known about it for a long time. He does remain at risk for recurrent bleeding with this mass and would benefit more urgent surgical intervention. I have discussed proceeding with hand assisted laparoscopic extended right hemicolectomy. Patient had already eaten a solid meal after the colonoscopy by the time we were consulted, therefore he will have to go through another bowel prep prior to surgery. Will plan to check a CEA level and CT chest tomorrow. Will then work on arranging surgery in the coming days. 10/06 surgery for thursday- NPO at midnight. no more bleeding reports. H/H stable- 9.1/30.2 10/07 stable continue to monitior (2) Mass of hepatic flexure of colon: Code(s): K63.89 - Other specified diseases of intestine Status: Acute Assessment and Plan: s/p QUAN R colectomy on 10/07 incisional soreness. no erythema, no drainage bs present ambulate to chair tid clear liquid diet- advance per surgery (3) Acute blood loss anemia: Code(s): D62 - Acute posthemorrhagic anemia Status: Acute Assessment and Plan: reviewed and stable today (4) Hyponatremia: Code(s): E87.1 - Hypo-osmolality and hyponatremia Status: Acute Assessment and Plan: Stable at 133 (5) Hypertension: Code(s): I10 - Essential (primary) hypertension Status: Acute Assessment and Plan: BP had been elevated- will resume home lisinopril/hctz (6) Type 2 diabetes mellitus with hyperglycemia: Code(s): E11.65 - Type 2 diabetes mellitus with hyperglycemia Status: Acute Assessment and Plan: hemoglobin A1c 12 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 Amited for loose frequent stools; with no known modifying factors they came to be associated with bloody bowel movements, fatigue, dizziness and malaise. He denies abdominal pains, chest pains, fevers, chills, nausea, vomiting or previous similar episodes. CT findings of a possible colon mass at the hepatic flexure. No signs of obstruction or evidence of distant metastasis on his CT scan. Colonoscopy done today that showed a malignant-appearing mass in the hepatic flexure. Biopsies are pending. - s/p QUAN R colectomy on 10/07 incisional soreness. no erythema, no drainage ambulate to chair tid clear liquid diet- advanced- tolerated well- cleared for discharge home ith a follow up. Pt is newrly diagnosed diabetic. hemoglobin A1c 12 diabetic education completed. nutrition consultation sliding scale insulin while in hospital ss, hypoglycemic protocol. Had nee on lantus 10 units and ss. Will discharge home with lantus 10 units and metfromin er- 500 mg daily for 1 week,t hen bid. He will need to f/u with pcp for hga1c and kidney recheck in 2-3 months. Will need yearly eye exams, statin initiation - need discussion with pcp for preventative measures. Weigh loss. Will benefit from glp-1 weekly agents in order to eventually stop lantus. pt has glucometer at home- so doesnot need one. his hg was 8 when discharged. he knows to have cbc recheck within 1 week Status at Discharge Functional status at discharge: independent ambulation Overall status at discharge: patient is progressing back to baseline Time Spent with Patient Time attestation: Total time spent providing and/or coordinating discharge services: Time spent: Greater than 30 minutes Exam Narrative: GENERAL: Well-appearing, well-nourished, and in no acute distress. HEAD: Normocephalic, atraumatic. ENT:? Mucous membranes moist. CHEST: Clear to auscultation.? No respiratory distress. HEART: Regular rate and rhythm. ? Normal peripheral pulses. ABDOMEN: incisional soreness. EXTREMITIES: Normal range of motion. No peripheral edema. SKIN: Warm dry normal color NEURO: Alert and oriented x3. PSYCH: Normal mood and affect Const: General: no acute distress; No in distress, confusion or uncomfortable Orientation/consciousness: No confusion HENMT: Ears: TM's abnormal bilaterally Mouth: No moist mucous membranes, No dry mucous membranes and No Abnormal oral and palatal mucosa present Eyes: General: appearance abnormal, both eyes Sclera: sclerae normal Pupils: Equal, round and reactive pupils present EOM: EOM not intact bilaterally Neck: Neck: supple Thyroid: thyroid normal Lymphatic: lymphadenopathy Resp: Auscultation: not clear to auscultation bilaterally, no crackles, no rales, no rhonchi and no wheezes Cardio: Rate: regular rate and not bradycardic Rhythm: regular rhythm GI: Auscultation: normal bowel sounds Skin: General skin exam: normal color Neuro: General: No confusion Cranial nerves: Yes Equal, round and reactive pupils present and Yes Normal hearing present Speech: No Abnormal speech present Motor exam (neuro): 5/5 motor strength present throughout, Normal motor muscle tone present throughout, strength normal and abnormal movements noted Sensory Exam: normal sensation Extrem: General: normal to inspection, no edema and no pedal edema Psych: Mental Status: mental status grossly normal DS: Data Data Completed and Pending Completed studies during hospitalization: Pending at discharge 10/04/24 11:37 Surgical [PTH] Routine Pending studies at discharge: Pending at discharge 10/07/24 13:15 Surgical [PTH] Routine Labs on day of discharge: Labs from last 24 hours 10/09/24 10/09/24 10/09/24 11:53 08:04 06:44 WBC 9.2 RBC 2.84 L Hgb 8.0 L Hct 26.5 L MCV 93.3 MCH 28.2 MCHC 30.2 L RDW 15.9 H Plt Count 275 MPV 11.1 H Immature Gran % (Auto) 0.7 H Neut % (Auto) 69.2 Lymph % (Auto) 21.9 [place] % (Auto) 7.6 Eos % (Auto) 0.4 Baso % (Auto) 0.2 Lymph # (Auto) 2.01 [place] # (Auto) 0.7 H Eos # (Auto) 0.0 Baso # (Auto) 0.0 Abs Immat Gran (auto) 0.06 H Absolute Neuts (auto) 6.4 Absolute Nucleated RBC 0.000 Nucleated RBC % 0.0 Sodium 134 L Potassium 3.6 Chloride 97 L Carbon Dioxide 31 H Anion Gap 6 BUN 9 Creatinine 0.80 Estim Creat Clear Calc 163 Estimated GFR > 60 Glucose 201 H POC Capillary Glucose 321 H 187 H Calcium 8.4 Total Bilirubin 0.9 AST 34 ALT 28 Alkaline Phosphatase 54 Total Protein 6.0 L Albumin 3.8 10/08/24 10/08/24 20:33 16:41 WBC RBC Hgb Hct MCV MCH MCHC RDW Plt Count MPV Immature Gran % (Auto) Neut % (Auto) Lymph % (Auto) [place] % (Auto) Eos % (Auto) Baso % (Auto) Lymph # (Auto) [place] # (Auto) Eos # (Auto) Baso # (Auto) Abs Immat Gran (auto) Absolute Neuts (auto) Absolute Nucleated RBC Nucleated RBC % Sodium Potassium Chloride Carbon Dioxide Anion Gap BUN Creatinine Estim Creat Clear Calc Estimated GFR Glucose POC Capillary Glucose 262 H 212 H Calcium Total Bilirubin AST ALT Alkaline Phosphatase Total Protein Albumin Discharge Plan Discharge Attending physician on discharge: Jeffrey Borges Consulting providers: Cody Butterfield Discharging Clinician: Gris Crain Patient Disposition: Home, Self-Care Activity: no straining Diet: as tolerated Wound Care Instructions: incision open to air Discharge Instructions: ok to shower over incisions with soap and water do not pick at bioglue f/u with surgery in2 weeks. Diabetes: - Will discharge home with lantus 10 units at bedtime and metfromin er- 500 mg daily for 1 week,then btwice a day to avoid side effects. You will need to f/u with pcp for hga1c and kidney recheck in 2-3 months. Will need yearly eye exams, statin initiation - need discussion with pcp for preventative measures. Weigh loss. Will benefit from glp-1 weekly agents in order to eventually stop lantus. YOur fasting blood sugars goal is 80-130 in am. Check first thing in am and keep log. bring it to your pcp for review. As discussed if your am sugars are low-70's- call PCP for adjustments of insulin. If higher than 200's in am- do the same- call pcp and let them know. as discussed, please f/u with pcp for cbc recheck to ensure your hemiglobin improved. Patient Instructions: Antibiotic Form, Pain Management (DC), Basic Carbohydrate Counting (DC) Stand Alone Forms: General Discharge Information Follow-up/Referrals: Cody Butterfield DO [Physician] - 2 Weeks Discharge Medications: New hydrocodone-acetaminophen 5-325 mg tablet 1 tablet PO Q6H PRN (Reason: pain) Qty: 20 0RF No Action multivitamin [Multiple Vitamins] Tablet 1 tablet PO DAILY lisinopril-hydrochlorothiazide 20-12.5 mg tablet 1 tablet PO DAILY albuterol sulfate [ProAir HFA] 90 mcg/actuation HFA aerosol inhaler 2 puff INHALATION Q4-6H PRN (Reason: shortness of breath or wheezing) Qty: 8.5 3RF Other Ambulatory Orders: Complete Blood Count no Diff (Routine) Timeframe: 1 Week Location: Determined by Patient Ordered By: Gris Crain Date of admission: 10/05/24 09:46 Primary Care Provider: Isma Quintero Admitting Provider: Danilo Nicolas Attending physician on admission: Danilo Nicolas Condition: Stable Quality VTE Prophylaxis VTE prophylaxis: mechanical ordered Hospitalist MIPS Heart Failure (Exclusion) Patient has history of Heart Transplant or Left Ventricular Assistive Device?: No IF YES, STOP HERE Heart Failure (Qualifier) Patient has current or prior documentation of LVEF less than or equal to 40%, or mod/servere depressed LVSF?: No IF NO, STOP HERE
--- NOTE | 2024-10-09 15:28 | PC.NURSE ---
DC'd patient with information on diabetes management, blood sugar control. Discussed how to take Blood sugar at home and parameters of high and low and when to notify provider. Patient and both did teach back and verbalize understanding. Patient able to ambulate, no c/o pain, voids on own with no complaints. Patient IVs removed and questions answered. Follow up information provided.
[2024-10-10 13:33] LABS: Calprotectin, Stool 61 mcg/g
== END 2024-10-09 15:20 | disposition home or self-care (01) | DRG 330 ==
LOC: ANHED 22:56 → ANH3MEDSUR 10-03 00:02
PROVIDERS: Internal Medicine Gastroenterology; Nurse Practitioner Family; Nurse Practitioner Gerontology; Surgery; Admitting Provider Internal Medicine; Emergency Provider Emergency Medicine; PCP Internal Medicine; Visit Provider Internal Medicine
PROC: 0DJD8ZZ Inspection of Lower Intestinal Tract, Via Natural or Artificial Opening Endoscopic (ICD-10-PCS; CPT 45378; principal; 2024-10-04 13:30)
PROC: 0DTF4ZZ Resection of Right Large Intestine, Percutaneous Endoscopic Approach (ICD-10-PCS; CPT 44204; principal; 2024-10-07 12:00)
DX: D12.3 Benign neoplasm of transverse colon (principal); D62 Acute posthemorrhagic anemia; K92.2 Gastrointestinal hemorrhage, unspecified; E87.1 Hypo-osmolality and hyponatremia; Z68.42 Body mass index [BMI] 45.0-49.9, adult; K92.1 Melena; K63.5 Polyp of colon; D12.2 Benign neoplasm of ascending colon; D12.4 Benign neoplasm of descending colon; D12.5 Benign neoplasm of sigmoid colon; K63.89 Other specified diseases of intestine; K64.8 Other hemorrhoids; E11.65 Type 2 diabetes mellitus with hyperglycemia; E66.01 Morbid (severe) obesity due to excess calories; F17.290 Nicotine dependence, other tobacco product, uncomplicated; G47.33 Obstructive sleep apnea (adult) (pediatric); I10 Essential (primary) hypertension; J44.9 Chronic obstructive pulmonary disease, unspecified; K21.9 Gastro-esophageal reflux disease without esophagitis; K76.0 Fatty (change of) liver, not elsewhere classified; M17.11 Unilateral primary osteoarthritis, right knee
CPT/HCPCS: 36415; 36430; 71260; 74177; 80053; 81003; 82378; 82948; 83036; 83605; 83690; 83735; 83993; 84145; 85014; 85018; 85025; 85055; 85610; 85730; 86850; 86900; 86901; 86923; 87045; 87427; 87449; 87493; 88305; 88309; 89055; 93005; 96361; 96365; 96366; 96375; 99285; A9270; G0378; J0330; J0690; J1100; J1171; J1650; J1815; J2003; J2250; J2371; J2405; J2470; J2543; J2704; J3010; J3475; J7030; J7050; J7120; P9016; Q9967